=== PATIENT | female | born 1955 | race Caucasian/White ===

== ENCOUNTER 2016-06-18 10:56 | Emergency (ER) | payer MEDICARE, MEDICAID ==
[2016-06-18 12:10] VITALS: BP 154/100
--- NOTE | 2016-06-18 12:48 | UC ---
Complaint Female HPI - HPI Summary HPI Summary: patient has had dysuria and increased frequency in urination for the past few days. - History Of Current Complaint Chief Complaint: UCGU Stated Complaint: UTI Time Seen by Provider: 06/18/16 12:21 Hx Obtained From: Patient ?: No Onset/Duration: Sudden Onset, Lasting Days Timing: Intermittent Severity Initially: Mild Severity Currently: Mild Pain Intensity: 3 Pain Scale Used: 0-10 Numeric Character: Burning Aggravating Factor(s): Urination Alleviating Factor(s): Position - Risk Factors Ectopic Risk Factor: Negative Ovarian Torsion Risk Factor: Negative - Allergies/Home Medications Allergies/Adverse Reactions: Allergies Allergy/AdvReac Type Severity Reaction Status Date / Time Latex Allergy Severe ITCHING, Verified 01/27/15 10:28 RASH Salicylates Allergy Severe Anaphylatic Verified 01/27/15 10:28 Shock Home Medications: Home Medications Esomeprazole Magnesium [Nexium] 40 mg PO 06/18/16 [History] PMH/Surg Hx/FS Hx/Imm Hx Previously Healthy: Yes Endocrine History Of: Reports: Diabetes - type 2 Cardiovascular History Of: Reports: Hypertension Denies: Pacemaker/ICD Respiratory History Of: Reports: COPD, Asthma GI/ History Of: Denies: Renal Disease - Surgical History Surgical History: Yes Surgery Procedure, Year, and Place: APPENDECTOMY, TUBAL LIGATION, TUBAL (ECTOPIC), - Family History Known Family History: Positive: Cardiac Disease - Social History Alcohol Use: None Substance Use Type: None, Prescribed Smoking Status (MU): Former Smoker Type: Cigarettes Length of Time of Smoking/Using Tobacco: quit Jun 20, 2011, smoked ~30 years on and off Have You Smoked in the Last Year: No Review of Systems Constitutional: Negative Skin: Negative Eyes: Negative ENT: Negative Respiratory: Negative Cardiovascular: Negative Gastrointestinal: Negative Genitourinary: Dysuria, Frequency, Urgency Motor: Negative Neurovascular: Negative Musculoskeletal: Negative Neurological: Negative Psychological: Negative All Other Systems Reviewed And Are Negative: Yes Physical Exam Triage Information Reviewed: Yes Appearance: Well-Nourished, Ill-Appearing, Pain Distress Vital Signs: Initial Vital Signs Temp 97.4 F 06/18/16 12:04 Pulse 103 06/18/16 12:04 Resp 18 06/18/16 12:04 BP 154/100 06/18/16 12:04 Pulse Ox 98 06/18/16 12:04 Vital Signs Reviewed: Yes Eye Exam: Normal Eyes: Positive: Conjunctiva Clear ENT: Positive: Normal ENT inspection, Pharynx normal, TMs normal Dental Exam: Normal Neck exam: Normal Neck: Positive: Supple, Nontender, No Lymphadenopathy Respiratory Exam: Normal Respiratory: Positive: Chest non-tender, Lungs clear, Normal breath sounds Cardiovascular Exam: Normal Cardiovascular: Positive: RRR, No Murmur, Pulses Normal Abdominal Exam: Normal Abdomen Description: Positive: Nontender, No Organomegaly, Soft - no cva tenderness Bowel Sounds: Positive: Present Musculoskeletal Exam: Normal Musculoskeletal: Positive: Strength Intact, ROM Intact, No Edema Neurological Exam: Normal Neurological: Positive: Alert, Muscle Tone Normal Psychological Exam: Normal Skin Exam: Normal Complaint Female Dx - Course Course Of Treatment: hx obtained, exam performed, medications reviewed. keflex given for UTI. - Differential Dx/Diagnosis Differential Diagnosis/HQI/PQRI: Sexually Transmitted Disease, Ureteral Stone, Urinary Tract Infection Provider Diagnoses: UTI Discharge - Discharge Plan Condition: Stable Disposition: HOME Prescriptions: Cephalexin CAP* [Keflex CAP*] 500 mg PO BID #14 cap Additional Instructions: Take the medication as prescribed. Increase your fluid intake. follow up with your primary physician as needed.
== END 2016-06-18 12:50 | disposition home or self-care (01) ==
LOC: UCEAST 10:56
DX: N39.0 Urinary tract infection, site not specified (principal); Z88.8 Allergy status to other drugs, medicaments and biological substances; Z87.891 Personal history of nicotine dependence
CPT/HCPCS: 81002; 87086; 99212; G0463

== ENCOUNTER 2016-08-08 03:00 | Emergency (ER) | payer MEDICARE, MEDICAID ==
[2016-08-08] MEDS ORDERED: predniSONE TAB* 20 MG PO ONE (03:16)
[2016-08-08] MEDS ORDERED: Albuterol/Ipratropium NEB.SOL* Albuterol 2.5 MG/Ipratropium 0.5 MG 3 ML INH ONE (03:16)
--- NOTE | 2016-08-08 04:22 | ED ---
Charles Taylor Benjamin, scribed for Akil Rosado MD on 08/08/16 at 0320 . Throat Pain/Nasal Congestion - HPI Summary HPI Summary: 61yo female who woke up middle of the night around 0130 with nonproductive cough , RED and throat pain. Pt has hx of DM, COPD, HTN, and GERD. FHx of DM and HTN. Former smoker. - History of Current Complaint Chief Complaint: EDThroatPain Time Seen by Provider: 08/08/16 03:13 Hx Obtained From: Patient Onset/Duration: Sudden Onset, Lasting Hours, Still Present Severity: Moderate Cough: Nonproductive - Allergies/Home Medications Allergies/Adverse Reactions: Allergies Allergy/AdvReac Type Severity Reaction Status Date / Time Latex Allergy Severe ITCHING, Verified 01/27/15 10:28 RASH Salicylates Allergy Severe Anaphylatic Verified 01/27/15 10:28 Shock PMH/Surg Hx/FS Hx/Imm Hx Endocrine/Hematology History: Reports: Hx Diabetes - type 2 Cardiovascular History: Reports: Hx Hypertension Denies: Hx Pacemaker/ICD Respiratory History: Reports: Hx Asthma, Hx Chronic Obstructive Pulmonary Disease (COPD), Other Respiratory Problems/Disorders History: Denies: Hx Renal Disease Sensory History: Denies: Hx Hearing Aid Psychiatric History: Reports: Hx Panic Disorder - THINKS WILL BE OKAY - Surgical History Surgery Procedure, Year, and Place: APPENDECTOMY, TUBAL LIGATION, TUBAL (ECTOPIC), Infectious Disease History: No Infectious Disease History: Reports: Hx Shingles Denies: Hx Clostridium Difficile, Hx Hepatitis, Hx Human Immunodeficiency Virus (HIV), Hx of Known/Suspected MRSA, Hx Tuberculosis, Hx Known/Suspected VRE , Hx Known/Suspected VRSA, History Other Infectious Disease, Traveled Outside the [place] in Last 30 Days - Family History Known Family History: Positive: Cardiac Disease, Hypertension, Diabetes - Social History Alcohol Use: None Substance Use Type: Reports: None, Prescribed Hx Tobacco Use: Yes Smoking Status (MU): Former Smoker Type: Cigarettes Length of Time of Smoking/Using Tobacco: quit Jun 20, 2011, smoked ~30 years on and off Have You Smoked in the Last Year: No Review of Systems Constitutional: Negative Eyes: Negative Positive: Sore Throat Cardiovascular: Negative Positive: Cough Gastrointestinal: Negative Genitourinary: Negative Musculoskeletal: Negative Skin: Negative Positive: Headache Psychological: Normal All Other Systems Reviewed And Are Negative: Yes Physical Exam Triage Information Reviewed: Yes Vital Signs On Initial Exam: Initial Vitals Temp Pulse Resp BP Pulse Ox 96.9 F 111 18 145/90 94 08/08/16 03:00 08/08/16 03:00 08/08/16 03:00 08/08/16 03:00 08/08/16 03:00 Vital Signs Reviewed: Yes Appearance: Positive: No Pain Distress, Obese Skin: Positive: Warm Eyes: Positive: EOMI, CARLOS ENT: Positive: Hearing grossly normal Neck: Positive: Supple Respiratory/Lung Sounds: Positive: Wheezes - few scattered exp wheezes with prolonged expiration Cardiovascular: Positive: RRR Abdomen Description: Positive: Nontender, Soft Musculoskeletal: Negative: Edema Left, Edema Right Neurological: Positive: Sensory/Motor Intact, Alert, Oriented to Person Place, Time, Normal Gait Diagnostics - Vital Signs Vital Signs Temp Pulse Resp BP Pulse Ox 08/08/16 03:00 96.9 F 111 18 145/90 94 - Laboratory Lab Results: Lab Results 08/08/16 Range/Units 04:04 Group A Strep Rapid Negative (Negative) Lab Statement: Any lab studies that have been ordered have been reviewed, and results considered in the medical decision making process. Re-Evaluation - Re-Evaluation First Eval Change: Improved EENT Course/Dx - Diagnoses Provider Diagnoses: COPD exacerbation Discharge - Discharge Plan Condition: Stable Disposition: HOME Prescriptions: predniSONE TAB* [Deltasone TAB*] 40 mg PO DAILY #8 tab Patient Education Materials: COPD (Chronic Obstructive Pulmonary Disease) (ED) , Dyspnea (ED) Referrals: Adelso Acosta MD [Primary Care Provider] - The documentation as recorded by the Charles pierce Benjamin accurately reflects the service I personally performed and the decisions made by me, Akil Rosado MD.
[2016-08-08 04:45] VITALS: BP 105/46
== END 2016-08-08 04:45 | disposition home or self-care (01) ==
LOC: ED 03:00
DX: J44.1 Chronic obstructive pulmonary disease with (acute) exacerbation (principal); J02.9 Acute pharyngitis, unspecified; Z87.891 Personal history of nicotine dependence; R51 Headache
CPT/HCPCS: 87651; 94640; 99282; A9270-GY; J7512

== ENCOUNTER 2016-09-17 18:11 | Inpatient (IN) | payer MEDICARE, MEDICAID ==
[2016-09-17 19:02] LABS: Hematocrit 32 % (35-47); Mean Corpuscular HGB Conc 31 g/dl (31-36); Mean Corpuscular Hemoglobin 23 pg (27-31); Mean Corpuscular Volume 72 fL (80-97); Mean Platelet Volume 7 um3 (7.4-10.4); Red Blood Count 4.43 10^6/ul (4.0-5.4); Red Cell Distribution Width 19 % (10.5-15); White Blood Count 15.6 10^3/ul (3.5-10.8)
[2016-09-17 19:11] LABS: Add Diff/Slide Review? Slide Review Added; Comments Flag Yes
[2016-09-17 19:13] LABS: Albumin 3.6 g/dL (3.2-5.2); BUN/Creatinine Ratio 8.2 (8-20); C Reactive Protein 161.65 mg/L (< 5.00); Calcium 9.1 mg/dL (8.6-10.3); EGFR African American 74.7 (>60); EGFR Non-African American 58.1 (>60); Potassium 3.9 mmol/L (3.5-5.0); Total Bilirubin 0.5 mg/dL (0.2-1.0); Total Protein 7.6 g/dL (6.4-8.9)
[2016-09-17 19:17] LABS: Troponin I 0.07 ng/mL (<0.04)
--- NOTE | 2016-09-17 19:20 | RAD ---
INDICATION: Chest pain COMPARISON: Most recent chest x-ray June 23, 2014 TECHNIQUE: PA and lateral views of the chest were obtained. FINDINGS: The heart and mediastinum are normal in size and contour. There is coarse calcification overlying the arch of the aorta. The lungs are grossly clear. The lateral view the diaphragm are flattened and there is increased retrosternal airspace. There is no evidence of large pleural effusion. Visualized bones are normal for the patient's age. There is no radiographic evidence of free air beneath the diaphragm IMPRESSION: FINDINGS COMPATIBLE WITH CHRONIC OBSTRUCTIVE PULMONARY DISEASE WITHOUT ACUTE RADIOGRAPHICALLY APPARENT ABNORMALITY.
[2016-09-17] MEDS ORDERED: Levofloxacin 750 MG IVPREMIX(* 750 MG/150 ML BAG IVPB ONE (19:43)
[2016-09-17] MEDS ORDERED: Ondansetron INJ* 2 MG/ML VIAL IV ONE (20:04)
[2016-09-17] MEDS ORDERED: HYDROmorphone* 1 MG/ML 1 ML SYR IV ONE ×2 (20:04→21:58)
[2016-09-17] MEDS ORDERED: Iodixanol* (CONTRAST) 320 MG/ML 100 ML SDV IV ONE (20:11)
[2016-09-17] MEDS ORDERED: Dextrose 50% Syringe 50 ML* 25 GM/50 ML SYRINGE IV PUSH PRN (21:10)
--- NOTE | 2016-09-17 21:37 | RAD ---
INDICATION: Chest pain COMPARISON: None TECHNIQUE: Axial source images were acquired following the administration of AML Omnipaque [address] angiographic technique. Coronal and sagittal reconstructed images were constructed and reviewed. FINDINGS: Poor bolus timing prevents reliable evaluation of the pulmonary arteries. There is highly questionable filling defect in the left mainstem pulmonary artery (axial image 85 of 238 and coronal image 68 of 112). Poor bolus timing perhaps combined with respiratory motion artifact prevents meaningful evaluation beyond the right and left mainstem pulmonary arteries. In the anterior aspect of the left lower lobe there is a consolidation measuring up to 5.3 cm in greatest axial dimension (image 36) and 4.8 cm in the cephalocaudal projection (sagittal image 100). There is a small left pleural effusion. The heart is normal in size. There is no evidence of pericardial effusion. There is no evidence of aortic aneurysm or dissection. There is an enlarged left hilar lymph node measuring 1.3 cm in short access diameter. There are no pathologically mediastinal or axillary lymph nodes. Multilevel degenerative changes of the thoracic spine includes loss of intervertebral disc height and mild anterior marginal osteophyte formation. There is a moderate size hiatal hernia. IMPRESSION: 1. Poor bolus timing prevents meaningful evaluation of the pulmonary arteries. There is a highly questionable nonocclusive filling defect in the left mainstem pulmonary artery. 2. In the left lower lobe there is a parenchymal mass measuring 5.3 cm in greatest dimension with a mildly enlarged ipsilateral left hilar lymph node and small left pleural effusion. Etiologies could include infection neoplasm or less likely unusually large focus of atelectasis. 3. Large hiatal hernia.
[2016-09-17] MEDS ORDERED: Acetaminophen TAB* 325 MG PO ONE (21:57)
[2016-09-17] MEDS ORDERED: diPHENhydraMINE PO* 50 MG PO PRN (21:59)
[2016-09-17] MEDS ORDERED: Cyclobenzaprine TAB* 10 MG PO PRN (21:59)
[2016-09-17] MEDS ORDERED: Amitriptyline TAB* 10 MG PO PRN (21:59)
[2016-09-17] MEDS ORDERED: NS 0.9% 1000 ML* 1,000 ML IV ONE (22:04)
--- NOTE | 2016-09-17 22:46 | ED ---
Alondra Taylor Erika, scribed for Chai Lomax MD on 09/17/16 at 1926 . HPI Chest Pain - HPI Summary HPI Summary: Patient is a 61-year-old female presenting to the ED with a CC of chest pain starting at 07:30 this morning. Pain is located under the left breast, and radiates around to the back and intermittently shoots up the left shoulder, up the neck, and to the left ear. Pain is aggravated by deep breathing and coughing. Patient also reports that she has had an intermittent fever for a couple of weeks, and has had a slightly productive cough for 1 year secondary to COPD. Patient reports she is SOB at baseline. - History of Current Complaint Chief Complaint: EDChestPainROMI Time Seen by Provider: 09/17/16 18:35 Hx Obtained From: Patient Onset/Duration: Started Hours Ago, Atraumatic, Still Present Current Severity: Moderate Pain Intensity: 10 Pain Scale Used: 0-10 Numeric Chest Pain Location: Left Anterior Chest Pain Radiates: Yes Chest Pain Radiates To:: Back, Neck - Allergy/Home Medications Allergies/Adverse Reactions: Allergies Allergy/AdvReac Type Severity Reaction Status Date / Time Latex Allergy Severe ITCHING, Verified 01/27/15 10:28 RASH Salicylates Allergy Severe Anaphylatic Verified 01/27/15 10:28 Shock Home Medications: Home Medications Cyclobenzaprine TAB* [Flexeril 10 MG TAB*] 10 mg PO TID PRN 09/17/16 [History Confirmed 09/17/16] PMH/Surg Hx/FS Hx/Imm Hx Endocrine/Hematology History: Reports: Hx Diabetes - type 2 Cardiovascular History: Reports: Hx Hypertension Denies: Hx Pacemaker/ICD Respiratory History: Reports: Hx Asthma, Hx Chronic Obstructive Pulmonary Disease (COPD), Other Respiratory Problems/Disorders History: Denies: Hx Renal Disease Sensory History: Denies: Hx Hearing Aid Psychiatric History: Reports: Hx Panic Disorder - THINKS WILL BE OKAY - Surgical History Surgery Procedure, Year, and Place: APPENDECTOMY, TUBAL LIGATION, TUBAL (ECTOPIC), Infectious Disease History: Reports: Hx Shingles Denies: Hx Clostridium Difficile, Hx Hepatitis, Hx Human Immunodeficiency Virus (HIV), Hx of Known/Suspected MRSA, Hx Tuberculosis, Hx Known/Suspected VRE , Hx Known/Suspected VRSA, History Other Infectious Disease, Traveled Outside the [place] in Last 30 Days - Family History Known Family History: Positive: Cardiac Disease, Hypertension, Diabetes - Social History Alcohol Use: None Substance Use Type: Reports: None, Prescribed Hx Tobacco Use: Yes Smoking Status (MU): Former Smoker Type: Cigarettes Length of Time of Smoking/Using Tobacco: quit Jun 20, 2011, smoked ~30 years on and off Have You Smoked in the Last Year: No Review of Systems Positive: Fever Positive: Chest Pain - radiating to L shoulder, neck, ear Positive: Shortness Of Breath, Cough All Other Systems Reviewed And Are Negative: Yes Physical Exam Triage Information Reviewed: Yes Vital Signs On Initial Exam: Initial Vitals Temp Pulse Resp BP Pulse Ox 99 F 119 17 129/103 97 09/17/16 18:13 09/17/16 18:13 09/17/16 18:13 09/17/16 18:13 09/17/16 18:13 Vital Signs Reviewed: Yes Appearance: Positive: Well-Appearing, No Pain Distress, Obese Skin: Positive: Warm, Skin Color Reflects Adequate Perfusion, Dry Head/Face: Positive: Normal Head/Face Inspection Eyes: Positive: Normal ENT: Positive: Normal ENT inspection Neck: Positive: Supple, Nontender Respiratory/Lung Sounds: Positive: Decreased Breath Sounds - Very Cardiovascular: Positive: Tachycardia, Other - Heart sounds decreased Abdomen Description: Positive: Nontender, Soft Bowel Sounds: Positive: Present Musculoskeletal: Positive: Normal. Negative: Edema Left, Edema Right Neurological: Positive: Normal Psychiatric: Positive: Affect/Mood Appropriate Diagnostics - Vital Signs Vital Signs Temp Pulse Resp BP Pulse Ox 09/17/16 18:13 99 F 119 17 129/103 97 - Laboratory Lab Results: Lab Results 09/17/16 09/17/16 09/17/16 Range/Units 18:33 18:33 18:33 WBC 15.6 H (3.5-10.8) 10^3/ul RBC 4.43 (4.0-5.4) 10^6/ul Hgb 10.0 L (12.0-16.0) g/dl Hct 32 L (35-47) % MCV 72 L (80-97) fL MCH 23 L (27-31) pg MCHC 31 (31-36) g/dl RDW 19 H (10.5-15) % Plt Count 367 (150-450) 10^3/ul MPV 7 L (7.4-10.4) um3 Neut % (Auto) 83.6 H (38-83) % Lymph % (Auto) 9.2 L (25-47) % [place] % (Auto) 6.1 (1-9) % Eos % (Auto) 0.6 (0-6) % Baso % (Auto) 0.5 (0-2) % Absolute Neuts (auto) 13.0 H (1.5-7.7) 10^3/ul Absolute Lymphs (auto) 1.4 (1.0-4.8) 10^3/ul Absolute Monos (auto) 0.9 H (0-0.8) 10^3/ul Absolute Eos (auto) 0.1 (0-0.6) 10^3/ul Absolute Basos (auto) 0.1 (0-0.2) 10^3/ul Absolute Nucleated RBC 0.01 10^3/ul Nucleated RBC % 0 Sodium 132 L (133-145) mmol/L Potassium 3.9 (3.5-5.0) mmol/L Chloride 98 L (101-111) mmol/L Carbon Dioxide 26 (22-32) mmol/L Anion Gap 8 (2-11) mmol/L BUN 8 (6-24) mg/dL Creatinine 0.98 H (0.51-0.95) mg/dL Est GFR ( Amer) 74.7 (>60) Est GFR (Non-Af Amer) 58.1 (>60) BUN/Creatinine Ratio 8.2 (8-20) Glucose 153 H (70-100) mg/dL Lactic Acid 2.0 (0.5-2.0) mmol/L Calcium 9.1 (8.6-10.3) mg/dL Iron 10 L (50-212) ug/dL TIBC 328 (250-450) mcg/dL % Saturation 3 L (15-55) % Unsat Iron Binding 318 ug/dL Ferritin Pending Total Bilirubin 0.50 (0.2-1.0) mg/dL AST 11 L (13-39) U/L ALT 10 (7-52) U/L Alkaline Phosphatase 113 H (34-104) U/L Troponin I 0.07 H* (<0.04) ng/mL C-Reactive Protein 161.65 H (< 5.00) mg/L B-Natriuretic Peptide ( - 100) pg/mL Total Protein 7.6 (6.4-8.9) g/dL Albumin 3.6 (3.2-5.2) g/dL Globulin 4.0 (2-4) g/dL Albumin/Globulin Ratio 0.9 L (1-3) Vitamin B12 Pending Folate Pending 09/17/16 Range/Units 18:33 WBC (3.5-10.8) 10^3/ul RBC (4.0-5.4) 10^6/ul Hgb (12.0-16.0) g/dl Hct (35-47) % MCV (80-97) fL MCH (27-31) pg MCHC (31-36) g/dl RDW (10.5-15) % Plt Count (150-450) 10^3/ul MPV (7.4-10.4) um3 Neut % (Auto) (38-83) % Lymph % (Auto) (25-47) % [place] % (Auto) (1-9) % Eos % (Auto) (0-6) % Baso % (Auto) (0-2) % Absolute Neuts (auto) (1.5-7.7) 10^3/ul Absolute Lymphs (auto) (1.0-4.8) 10^3/ul Absolute Monos (auto) (0-0.8) 10^3/ul Absolute Eos (auto) (0-0.6) 10^3/ul Absolute Basos (auto) (0-0.2) 10^3/ul Absolute Nucleated RBC 10^3/ul Nucleated RBC % Sodium (133-145) mmol/L Potassium (3.5-5.0) mmol/L Chloride (101-111) mmol/L Carbon Dioxide (22-32) mmol/L Anion Gap (2-11) mmol/L BUN (6-24) mg/dL Creatinine (0.51-0.95) mg/dL Est GFR ( Amer) (>60) Est GFR (Non-Af Amer) (>60) BUN/Creatinine Ratio (8-20) Glucose (70-100) mg/dL Lactic Acid (0.5-2.0) mmol/L Calcium (8.6-10.3) mg/dL Iron (50-212) ug/dL TIBC (250-450) mcg/dL % Saturation (15-55) % Unsat Iron Binding ug/dL Ferritin Total Bilirubin (0.2-1.0) mg/dL AST (13-39) U/L ALT (7-52) U/L Alkaline Phosphatase (34-104) U/L Troponin I (<0.04) ng/mL C-Reactive Protein (< 5.00) mg/L B-Natriuretic Peptide 73 ( - 100) pg/mL Total Protein (6.4-8.9) g/dL Albumin (3.2-5.2) g/dL Globulin (2-4) g/dL Albumin/Globulin Ratio (1-3) Vitamin B12 Folate Result Diagrams: 09/17/16 18:33 09/17/16 18:33 Lab Statement: Any lab studies that have been ordered have been reviewed, and results considered in the medical decision making process. - Radiology CXR Radiology Interpretation Completed By: Radiologist - IMPRESSION: FINDINGS COMPATIBLE WITH CHRONIC OBSTRUCTIVE PULMONARY DISEASE WITHOUT ACUTE RADIOGRAPHICALLY APPARENT ABNORMALITY. - CT CTA Chest CT Interpretation Completed By: Radiologist - IMPRESSION: 1. Poor bolus timing prevents meaningful evaluation of the pulmonary arteries. There is a highly questionable nonocclusive filling defect in the left mainstem pulmonary artery. 2. In the left lower lobe there is a parenchymal mass measuring 5.3 cm in greatest dimension with a mildly enlarged ipsilateral left hilar lymph node and small left pleural effusion. Etiologies could include infection neoplasm or less likely unusually large focus of atelectasis. 3. Large hiatal hernia. - EKG 18:20 Cardiac Rate: Tachycardia - at 115 bpm EKG Rhythm: Sinus Tachycardia Chest Pain Course/Dx - Diagnoses Provider Diagnoses: Pneumonia - Provider Notifications Discussed Care Of Patient With: Dr. Raza (hospitalist) at 20:03 - agrees to admit. will order CTA chest Discharge - Discharge Plan Condition: Stable Disposition: ADMITTED TO [facility] documentation as recorded by the Alondra pierce Erika accurately reflects the service I personally performed and the decisions made by mt, Chai Lomax MD.
[2016-09-17 22:48] LABS: Ferritin 60.2 ng/mL (11-307)
[2016-09-17 22:52] LABS: Folate 11.99 ng/mL (>3.99)
--- NOTE | 2016-09-18 01:07 | HP ---
HOSPITAL MEDICINE HISTORY AND PHYSICAL: DATE OF ADMISSION: 09/17/16 PRIMARY CARE PHYSICIAN: Dr. Acosta. ATTENDING PHYSICIAN: Dr. Zurdo Raza * (dictation provided by Ainsley Wang NP) CHIEF COMPLAINT: Chest pain. HISTORY OF PRESENT ILLNESS: Ms. Fuller is a 61-year-old female with a past medical history of COPD and type 2 diabetes who presents to the hospital today with concern for left-sided chest pain. Ms. Fuller states that she has been having on again and off again fevers for 2 weeks. Her temperature has been up to as high as 102. She stated that she had no other associated symptoms and so did not seek out further evaluation of the fever. She has ongoing issues with COPD and has wheezing and shortness of breath that is chronic. She also has chronic pain related to fibromyalgia. She states that today at 07:30 a.m., she had a sudden onset of pain to the left side of her chest that radiated around to her back. There is no other associated symptoms of worsening cough or nausea or sweating. In the emergency room, Ms. Fuller has been confirmed have a fever to 102. She is tachycardic with a heart rate of about 110. Her lactic acid is normal. White blood cell count was elevated to 15.6. Troponin is elevated to 0.07. C- reactive protein elevated to 161.65. Chest x-ray was negative, but she went on for a chest thorax CTA which did show concern for what is being described as a left-sided parenchymal mass, it is 5.3 cm in greatest dimension, with possibility of infection versus neoplasm and there is also a small associated pleural effusion. PAST MEDICAL HISTORY: 1. COPD. 2. Six-jwtguif-ippmexmga diabetes mellitus. 3. Depression. 4. GERD. 5. Fibromyalgia. PAST SURGICAL HISTORY: 1. Ectopic . 2. Appendectomy. 3. History of tubal ligation. MEDICATIONS: 1. Albuterol and ipratropium 1 puff inhaled q.4 hours p.r.n. 2. Esomeprazole 40 mg p.o. daily. 3. Furosemide 20 mg p.o. daily. 4. Metformin 1000 mg p.o. b.i.d. 5. Pravastatin 20 mg p.o. daily. 6. Ranitidine 150 mg p.o. daily. 7. Amitriptyline 10 mg p.o. daily p.r.n. 8. Cyclobenzaprine 10 mg p.o. t.i.d. p.r.n. 9. Advair 250/50, 1 puff inhaled b.i.d. 10. Gabapentin 600 mg p.o. at noon and at 8 p.m. 11. Lisinopril 10 mg p.o. daily. 12. Acetaminophen 5/325, 1 tab p.o. q.4 hours. 13. Sertraline 100 mg p.o. daily. 14. Diphenhydramine 50 mg p.o. q.8 hours p.r.n. ALLERGIES: To LATEX and SALSALATE. FAMILY HISTORY: The patient reports that her mother is still alive, but she has diabetes and COPD. Her father related to heart troubles. SOCIAL HISTORY: The patient quit smoking 4 years ago. She denies alcohol or drug use. She lives alone. She states either her son Gamal or daughter Rayne would the healthcare proxy. REVIEW OF SYSTEMS: A 14-point review of systems was completed with Ms. Fuller and all those not mentioned above were negative. PHYSICAL EXAMINATION GENERAL: Ms. Fuller is sitting up in the bed, she is in no acute distress. VITAL SIGNS: Temperature 102.5, heart rate 115, respiratory rate 18, O2 saturation 92% on room air, blood pressure 165/80. LUNGS: Have diffuse wheezing bilaterally. There is no accessory muscle use, there is good aeration. She does have pain with deep inspiration on the left side. HEART: S1 and S2. No murmur, rub, or gallop. Regular. ABDOMEN: Soft and nontender with bowel sounds positive x4. EXTREMITIES: No cyanosis or edema. NEURO: She is alert and oriented x3. She moves all extremities equally. There is no facial asymmetry or focal weakness. Extraocular movements are intact. SKIN: Intact. DIAGNOSTIC STUDIES/LAB DATA: Sodium 132, potassium 3.9, chloride 98, serum bicarbonate 26, BUN 8, creatinine 0.98, glucose 153, AST 11, ALT of 10, alkaline phosphatase 113, troponin 0.07. C-reactive protein 161.65. WBC 15.6, hemoglobin 10.0, hematocrit 32, platelet count 367. Chest x-ray was read as follows: "Findings compatible with chronic obstructive pulmonary disease without acute radiographic abnormality." Chest thorax CTA is read as follows: "Poor bolus timing prevents meaningful evaluation of the pulmonary arteries. There is a highly questionable nonocclusive filling defect in the left main stem pulmonary artery. In the left lower lobe, there is a parenchymal mass measuring 5.3 cm in greatest dimension with a mildly enlarged ipsilateral left hilar lymph node and small left pleural effusion. Etiologies could include infection, neoplasm or less likely unusually large focus of atelectasis, large hiatal hernia." ASSESSMENT: Ms. Fuller is a 61-year-old female with a past medical history of diabetes and chronic obstructive pulmonary disease who presents today at the hospital with concern for fever x2 weeks and new left-sided chest pain that is worse with deep inspiration. PLAN: Our plans are for admission to the hospital as I expect the length of stay to be greater than 2 days for the following; 1. Parenchymal mass with chest pain on deep inspiration. I think the parenchymal mass explains her chest pain with deep inspiration. I suspect that this is likely infectious given the patient's history of fever x2 weeks. Our plan to treat for now with Levaquin, but could consider a consultation with Infectious Diseases or Pulmonology tomorrow when they are available. The patient is not hypoxic. Her lactic acid is normal. Blood cultures have been drawn. Unfortunately the CTA chest was not an adequate study to rule out PE but the report only shows a highly questionable finding and there is an alternate explanation that explains her symptoms. Could consider repeat CTA tomorrow but I believe a VQ scan would not be beneficial given the underlying lung abnormality. I do also note however, that her troponin is elevated at 0.07 , we will repeat that x2 and she will have telemetry monitoring. I suspect that this is secondary to demand ischemia with her elevated heart rate and infection. I will order echocardiogram for further evaluation tomorrow. 3. Diabetes: The patient will have blood glucoses q.a.c. with lispro sliding scale and consistent carbohydrate diet. 4. Depression. Continue sertraline. 5. Chronic pain. Continue gabapentin and oxycodone. 6. DVT prophylaxis: With heparin subcu. 7. Code status: Full code. TIME SPENT: Approximately 60 minutes was spent on admission of this patient, more than half time spent with the patient at the bedside reviewing the events leading up to this hospitalization, performing the physical examination, and reviewing my plan of care. AINSLEY WANG NP CC: Dr. Acosta* [id number]/[facility] #: [id number] [facility]
[2016-09-18] MEDS: NS 0.9% 1000 ML* 1,000 ML IV SCH ×3 (02:31→23:55)
[2016-09-18] MEDS: oxyCODONE/Acetamin 5/325 MG* TAB PO PRN ×2 (03:02→07:26)
[2016-09-18] MEDS ORDERED: Morphine INJ* 2 MG/ML 1 ML SYRINGE IV ONE (05:25)
[2016-09-18 05:53] LABS: Hematocrit 28 % (35-47); Hemoglobin 8.9 g/dl (12.0-16.0); Mean Corpuscular HGB Conc 32 g/dl (31-36); Mean Corpuscular Hemoglobin 23 pg (27-31); Mean Platelet Volume 7 um3 (7.4-10.4); Red Blood Count 3.89 10^6/ul (4.0-5.4); Red Cell Distribution Width 19 % (10.5-15); White Blood Count 19.7 10^3/ul (3.5-10.8)
[2016-09-18 05:55] LABS: Comments Flag Yes
[2016-09-18 05:56] LABS: Add Diff/Slide Review? Slide Review Added; Mean Corpuscular Volume 72 fL (80-97)
[2016-09-18] MEDS ORDERED: Heparin VIAL(*) 5000 UNITS/ML VIAL (FIVE THOUSAND) SUBCUT SCH (06:00)
[2016-09-18 06:09] LABS: BUN/Creatinine Ratio 10.8 (8-20); Calcium 8.4 mg/dL (8.6-10.3); EGFR African American 64.7 (>60); EGFR Non-African American 50.3 (>60); Potassium 3.9 mmol/L (3.5-5.0)
[2016-09-18 06:14] LABS: Troponin I 0.08 ng/mL (<0.04)
[2016-09-18] MEDS ORDERED: Morphine INJ* 2 MG/ML 1 ML SYRINGE IV PRN (08:30)
[2016-09-18] MEDS: Mometasone/Formoter 200/5 MDI INH SCH ×2 (08:43→20:57)
[2016-09-18] MEDS: fentaNYL PATCH 25 MCG/HR TRANSDERM SCH (09:12)
[2016-09-18] MEDS: Insulin LISPRO* 1 UNITS UNIT SUBCUT SCH ×3 (09:16→18:09)
[2016-09-18] MEDS: Lisinopril TAB* 10 MG PO SCH (09:18)
[2016-09-18] MEDS: Sertraline* 100 MG TAB PO SCH (09:18)
[2016-09-18] MEDS ORDERED: Perflutren Lipid Microsphere* 1.1 MG/1.5 ML VIAL IV ONE (09:25)
[2016-09-18] MEDS ORDERED: Perflutren Prot Type A Micr (NF) 3 ML SDV IV ONE ×2 (09:48→11:39)
[2016-09-18] MEDS ORDERED: HYDROmorphone* 1 MG/ML 1 ML SYR IV SLOW PU ONE (10:59)
[2016-09-18] MEDS ORDERED: Enoxaparin(*) 150 MG/ML 1 ML SYRINGE SUBCUT ONE (11:01)
[2016-09-18] MEDS: Gabapentin CAP(*) 300 MG PO SCH ×2 (12:19→20:56)
--- NOTE | 2016-09-18 13:36 | PN ---
Subjective Date of Service: 09/18/16 Interval History: Pt is having severe pain in the left lower chest. She states it hurts much worse when she moves, is lying flat or takes a deep breath. She has a slight cough but no more than usual. No significant sputum production. Objective Active Medications: Amitriptyline HCl (Elavil Tab*) 10 mg PO BEDTIME PRN PRN Reason: PAIN Cyclobenzaprine HCl (Flexeril Tab*) 10 mg PO TID PRN PRN Reason: SPASMS Dextrose (D50w Syringe 50 Ml*) 12.5 gm IV PUSH .FOR FS < 60 - SS PRN PRN Reason: FS < 60 Diphenhydramine HCl (Benadryl Po*) 50 mg PO Q8H PRN PRN Reason: ITCHING Fentanyl (Duragesic Patch 25 Mcg/Hr*) 25 mcg TRANSDERM Q72H [facility] Last Admin: 09/18/16 09:12 Dose: 25 mcg Gabapentin (Neurontin Cap(*)) 600 mg PO 1200,2000 [facility] Last Admin: 09/18/16 12:19 Dose: 600 mg Hydromorphone HCl (Dilaudid Iv*) 1 mg IV SLOW PU Q3H PRN PRN Reason: PAIN Levofloxacin/Dextrose (Levaquin 750 Mg Ivpremix(*)) 750 mg in 150 mls @ 100 mls /hr IVPB Q24H [facility] Sodium Chloride (Ns 0.9% 1000 Ml*) 1,000 mls @ 125 mls/hr IV PER RATE [facility] Last Admin: 09/18/16 12:51 Dose: 125 mls/hr Insulin Human Lispro (Humalog*) 0 units SUBCUT AC [facility] PRN Reason: Protocol Last Admin: 09/18/16 12:18 Dose: 3 unit Lisinopril (Prinivil Tab*) 10 mg PO DAILY [facility] Last Admin: 09/18/16 09:18 Dose: 10 mg Mometasone Furoate/Formoterol Fumar (Dulera 200/5 Mdi*) 2 puff INH BID [facility] Last Admin: 09/18/16 08:43 Dose: 2 puff Pharmacy Profile Note (Fentanyl Patch Check Q Shift) 1 note N/A 0700,1900 [facility] Sertraline HCl (Zoloft*) 100 mg PO DAILY [facility] Last Admin: 09/18/16 09:18 Dose: 100 mg Vital Signs 04/11/17 04/12/17 04/12/17 23:06 02:00 03:02 Temperature 99.5 F Pulse Rate 100 Respiratory 22 24 22 Rate Blood Pressure 115/60 (mmHg) O2 Sat by Pulse 100 Oximetry 09/18/16 09/18/16 09/18/16 03:14 05:02 05:36 Temperature 99.4 F Pulse Rate 102 Respiratory 24 24 24 Rate Blood Pressure 122/71 (mmHg) O2 Sat by Pulse 99 Oximetry 09/18/16 09/18/16 09/18/16 06:36 07:24 07:26 Temperature 99.7 F Pulse Rate 106 Respiratory 20 26 20 Rate Blood Pressure 114/68 (mmHg) O2 Sat by Pulse 95 Oximetry 09/18/16 09/18/16 09/18/16 08:00 08:49 09:08 Temperature Pulse Rate Respiratory 28 24 Rate Blood Pressure (mmHg) O2 Sat by Pulse 94 Oximetry 09/18/16 09/18/16 09/18/16 09:12 11:07 11:19 Temperature 100.3 F Pulse Rate 107 Respiratory 24 28 30 Rate Blood Pressure 120/60 (mmHg) O2 Sat by Pulse 92 Oximetry 09/18/16 12:19 Temperature Pulse Rate Respiratory 28 Rate Blood Pressure (mmHg) O2 Sat by Pulse Oximetry Oxygen Devices in Use Now: None Appearance: Middle aged female sitting in a chair, appearing to be in pain, but in NAD Eyes: No Scleral Icterus Ears/Nose/Mouth/Throat: Mucous Membranes Moist Respiratory: Symmetrical Chest Expansion and Respiratory Effort, Clear to Auscultation, - - No E to A changes Cardiovascular: NL Sounds; No Murmurs; No JVD, RRR, - - 1+ B/L LE edema Abdominal: NL Sounds; No Tenderness; No Distention Extremities: No Clubbing, Cyanosis Skin: No Rash or Ulcers, No Nodules or Sclerosis Neurological: Alert and Oriented x 3 Result Diagrams: 09/18/16 05:16 09/18/16 05:16 Additional Lab and Data: Lab Results 09/17/16 09/17/16 09/17/16 Range/Units 18:33 18:33 18:33 WBC 15.6 H (3.5-10.8) 10^3/ul RBC 4.43 (4.0-5.4) 10^6/ul Hgb 10.0 L (12.0-16.0) g/dl Hct 32 L (35-47) % MCV 72 L (80-97) fL MCH 23 L (27-31) pg MCHC 31 (31-36) g/dl RDW 19 H (10.5-15) % Plt Count 367 (150-450) 10^3/ul MPV 7 L (7.4-10.4) um3 Neut % (Auto) 83.6 H (38-83) % Lymph % (Auto) 9.2 L (25-47) % Arthur % (Auto) 6.1 (1-9) % Eos % (Auto) 0.6 (0-6) % Baso % (Auto) 0.5 (0-2) % Absolute Neuts (auto) 13.0 H (1.5-7.7) 10^3/ul Absolute Lymphs (auto) 1.4 (1.0-4.8) 10^3/ul Absolute Monos (auto) 0.9 H (0-0.8) 10^3/ul Absolute Eos (auto) 0.1 (0-0.6) 10^3/ul Absolute Basos (auto) 0.1 (0-0.2) 10^3/ul Absolute Nucleated RBC 0.01 10^3/ul Nucleated RBC % 0 Sodium 132 L (133-145) mmol/L Potassium 3.9 (3.5-5.0) mmol/L Chloride 98 L (101-111) mmol/L Carbon Dioxide 26 (22-32) mmol/L Anion Gap 8 (2-11) mmol/L BUN 8 (6-24) mg/dL Creatinine 0.98 H (0.51-0.95) mg/dL Est GFR ( Amer) 74.7 (>60) Est GFR (Non-Af Amer) 58.1 (>60) BUN/Creatinine Ratio 8.2 (8-20) Glucose 153 H (70-100) mg/dL Lactic Acid 2.0 (0.5-2.0) mmol/L Calcium 9.1 (8.6-10.3) mg/dL Iron 10 L (50-212) ug/dL TIBC 328 (250-450) mcg/dL % Saturation 3 L (15-55) % Unsat Iron Binding 318 ug/dL Ferritin Pending Total Bilirubin 0.50 (0.2-1.0) mg/dL AST 11 L (13-39) U/L ALT 10 (7-52) U/L Alkaline Phosphatase 113 H (34-104) U/L Troponin I 0.07 H* (<0.04) ng/mL C-Reactive Protein 161.65 H (< 5.00) mg/L B-Natriuretic Peptide ( - 100) pg/mL Total Protein 7.6 (6.4-8.9) g/dL Albumin 3.6 (3.2-5.2) g/dL Globulin 4.0 (2-4) g/dL Albumin/Globulin Ratio 0.9 L (1-3) Vitamin B12 Pending Folate Pending 09/17/16 Range/Units 18:33 WBC (3.5-10.8) 10^3/ul RBC (4.0-5.4) 10^6/ul Hgb (12.0-16.0) g/dl Hct (35-47) % MCV (80-97) fL MCH (27-31) pg MCHC (31-36) g/dl RDW (10.5-15) % Plt Count (150-450) 10^3/ul MPV (7.4-10.4) um3 Neut % (Auto) (38-83) % Lymph % (Auto) (25-47) % Arthur % (Auto) (1-9) % Eos % (Auto) (0-6) % Baso % (Auto) (0-2) % Absolute Neuts (auto) (1.5-7.7) 10^3/ul Absolute Lymphs (auto) (1.0-4.8) 10^3/ul Absolute Monos (auto) (0-0.8) 10^3/ul Absolute Eos (auto) (0-0.6) 10^3/ul Absolute Basos (auto) (0-0.2) 10^3/ul Absolute Nucleated RBC 10^3/ul Nucleated RBC % Sodium (133-145) mmol/L Potassium (3.5-5.0) mmol/L Chloride (101-111) mmol/L Carbon Dioxide (22-32) mmol/L Anion Gap (2-11) mmol/L BUN (6-24) mg/dL Creatinine (0.51-0.95) mg/dL Est GFR ( Amer) (>60) Est GFR (Non-Af Amer) (>60) BUN/Creatinine Ratio (8-20) Glucose (70-100) mg/dL Lactic Acid (0.5-2.0) mmol/L Calcium (8.6-10.3) mg/dL Iron (50-212) ug/dL TIBC (250-450) mcg/dL % Saturation (15-55) % Unsat Iron Binding ug/dL Ferritin Total Bilirubin (0.2-1.0) mg/dL AST (13-39) U/L ALT (7-52) U/L Alkaline Phosphatase (34-104) U/L Troponin I (<0.04) ng/mL C-Reactive Protein (< 5.00) mg/L B-Natriuretic Peptide 73 ( - 100) pg/mL Total Protein (6.4-8.9) g/dL Albumin (3.2-5.2) g/dL Globulin (2-4) g/dL Albumin/Globulin Ratio (1-3) Vitamin B12 Folate Assess/Plan/Problems-Billing Ms Fuller is a 61 yo F who has a h/o COPD, fibromyalgia, type II DM and depression who presented to the ER with c/o 2 weeks of intermittent fevers and the sudden onset of severe L sided chest pain worse with deep breath and movement. - Patient Problems (1) Chest pain Current Visit: Yes Status: Acute Code(s): R07.9 - CHEST PAIN, UNSPECIFIED SNOMED Code(s): 90395160 Comment: I suspect the patient's chest pain is related to the large L lower lobe lung mass/consolidation. It is not clear if this is infectious vs neoplastic. Additionally the pain could be secondary to a PE. Her initial study was of poor quality and because of her ongoing symptoms will repeat the CTA now. I have given 130mg of lovenox SQ x1 due to the concern for PE. Will continue to treat for possible dense pneumonia of the LLL. If no improvement or change in the size/appearance of the mass in the LLL will consider biopsy. Additionally will ask for pulmonary consultation. The patient is febrile and has a marked leukocytosis which makes me lean towards infection however she is not coughing up any sputum. (2) Elevated troponin Current Visit: Yes Status: Acute Code(s): R74.8 - ABNORMAL LEVELS OF OTHER SERUM ENZYMES SNOMED Code(s): 969081096 Comment: Likely demand ischemia. Subsequent troponins were normal but then again elevated but now normal again. No further work up at this time as I do not believe her chest pain is cardiac in nature. (3) Anemia Current Visit: Yes Status: Acute Code(s): D64.9 - ANEMIA, UNSPECIFIED SNOMED Code(s): 038014285 Comment: The patient was anemic on admission but worsened today with hydration. Likely the anemia is secondary to probable infection however her MCV is low making iron deficiency a possibilty. Will send iron and B12 studies. Will follow H/H. (4) COPD (chronic obstructive pulmonary disease) Current Visit: Yes Status: Acute Code(s): J44.9 - CHRONIC OBSTRUCTIVE PULMONARY DISEASE, UNSPECIFIED SNOMED Code(s): 56121220 Comment: No signs of exacerbation at this time. Continue dulera. (5) Type II diabetes mellitus Current Visit: Yes Status: Acute Comment: Blood sugars are under fair control. Continue lispro sliding scale. (6) DVT prophylaxis Current Visit: Yes Status: Acute Code(s): JBZ4201 - SNOMED Code(s): 967752144 Comment: full dose lovenox (7) Full code status Current Visit: Yes Status: Acute Code(s): Z78.9 - OTHER SPECIFIED HEALTH STATUS SNOMED Code(s): 051243596
[2016-09-18] MEDS: HYDROmorphone* 1 MG/ML 1 ML SYR IV SLOW PU PRN ×3 (14:06→23:13)
--- NOTE | 2016-09-18 14:17 | ECHO ---
Amended Report Patient: RAHEEL CALDWELL [facility] Rec#: [id number] : 1955 Date: 09/18/2016 Age: 61y Height: 167.64 cm / 66.0 in Weight: 129.27 kg / 284.9 lbs Sex: F BSA: 2.33 Room#: 431 Admit Date#: 09/17/2016 Type: Inpatient Referring: Ainsley Wang NP Reading: Mellisa Aparicio MD Information Systems [employer] Specialist: Jenn Swain RDCS,RDMS CC: Adelso Acosta MD Transthoracic Echocardiogram Indication: Chest Pain BP: 122/71 HR: 107 Rhythm: NSR Indications Chest Pain Findings History: COPD, DM, fibromyalgia, left parynchymal mass. Technical Comments: The study quality is poor. The study is technically limited due to poor acoustic windows. The study is technically limited due to the patient's history of COPD. Left Ventricle: The left ventricle is not well visualized. The left ventricular chamber size is normal. Global left ventricular wall motion and contractility are within normal limits. The left ventricle appears hyperdynamic. The estimated ejection fraction is 60-65%. The assessment of diastolic function is non-diagnostic. The patient was unable to perform a Valsalva maneuver. Left Atrium: The left atrial chamber size is normal. Right Ventricle: The right ventricle wall thickness is mildly increased. The right ventricular cavity size is normal. The right ventricular global systolic function is moderately reduced. Right Atrium: The right atrial cavity size is normal. Aortic Valve: The aortic valve structure is not well visualized. The aortic valve leaflets are mildly thickened. There is no evidence of aortic regurgitation. There is no evidence of aortic stenosis. Mitral Valve: The mitral valve leaflets do not appear thickened. There is no evidence of mitral regurgitation. There is no evidence of mitral stenosis. Tricuspid Valve: The tricuspid valve structure is not well visualized. There is no evidence of tricuspid valve regurgitation. Unable to estimate the right ventricular systolic pressure. Pulmonic Valve: The pulmonic valve structure is not well visualized. Pericardium: There is no significant pericardial effusion. Aorta: The ascending aorta is not well visualized. The aortic arch is not well visualized. The aortic root is normal in size. Pulmonary Artery: The main pulmonary artery is not well visualized. Venous: The inferior vena cava is not visualized. Contrast: Optison was used to optimize study. A total of 1.0 ml was used. Conclusions The study is technically limited due to poor acoustic windows, echo enhancement agent used with good definition endocarial borders. Global left ventricular wall motion and contractility are within normal limits. The left ventricle appears hyperdynamic. The estimated ejection fraction is 60-65%. The right ventricular global systolic function is moderately reduced and wall thickness mildly increased. The aortic valve leaflets are mildly thickened with good function. The tricuspid valve structure is not well visualized, normal function. The pulmonic valve structure is not well visualized. The ascending aorta is not well visualized. No prior echo to compare. Measurements Name Value Normal Range RAd ISD 4CH 3.5 cm (3.4 - 4.9) RA (A4C)W 4.1 cm (2.9 - 4.6) Aortic Annulus 2.2 cm (1.4 - 2.6) Ao root diameter (2D) 2.8 cm (2.1 - 3.5) LAd ISD 4CH 5.1 cm (2.9 - 5.3) LA ISD 4CH W 3.7 cm (2.5 - 4.5) Name Value Normal Range LA ESV SP 4CH (A/L) 64.32 ml - LA ESV SP 4CH (MOD) 59.66 ml - Name Value Normal Range MV E-wave Vmax 0.8 m/sec - MV deceleration time 109 msec - MV A-wave Vmax 0.9 m/sec - MV E:A ratio 0.9 ratio - LV lateral e' Vmax 0.06 m/sec - LV E:e' lateral ratio 13 ratio - Name Value Normal Range AV Vmax 1.6 m/sec - AV VTI 26 cm - AV peak gradient 10 mmHg - AV mean gradient 7.5 mmHg - LVOT Vmax 1.2 m/sec - LVOT VTI 19 cm - LVOT peak gradient 6 mmHg - LVOT mean gradient 3.3 mmHg - Name Value Normal Range RAP 8 mmHg -
[2016-09-18] MEDS ORDERED: Iodixanol* (CONTRAST) 320 MG/ML 100 ML SDV IV ONE (17:20)
--- NOTE | 2016-09-18 18:05 | RAD ---
Indication: Evaluate for pulmonary emboli. Contrast: Administered 96.2 ml of VISIPAQUE 320 mg/ml CTA of the chest was performed after IV contrast administration. Coronal and sagittal reconstructed images were obtained. There is contrast in the aorta and superior vena cava with poorly opacified pulmonary arteries. This is consistent with transient interruption of contrast bolus. The main pulmonary arteries demonstrates no evidence of pulmonary embolus however it is difficult to evaluate for small pulmonary emboli. Trachea and major bronchi appear patent. The lung rosado demonstrate consolidation in the left lower lobe with air bronchograms. A mass is not excluded. This is unchanged from previous examination. Again noted is a left hilar lymph node measuring up to 1.3 cm in the short axis.. Large hiatal hernia is noted. The visualized abdominal organs are otherwise unremarkable. IMPRESSION: THERE IS TRANSIENT INTERRUPTION OF CONTRAST WITH WELL OPACIFIED SUPERIOR VENA CAVA AND AORTA. THE PULMONARY ARTERIES ARE POORLY OPACIFIED AND THEREFORE LIMITED IN EVALUATION. LEFT LOWER LOBE MASS. CORRELATION WITH BRONCHOSCOPY MAY BE HELPFUL. LEFT LOWER LOBE ATELECTASIS WITH SMALL LEFT PLEURAL EFFUSION IS NOTED. VISUALIZED ABDOMINAL ORGANS ARE UNREMARKABLE.
[2016-09-18] MEDS: fentaNYL Patch Check Q Shift 1 NOTE SCH (19:08)
[2016-09-18] MEDS ORDERED: Levofloxacin 750 MG IVPREMIX(* 750 MG/150 ML BAG IVPB SCH (21:00)
--- NOTE | 2016-09-18 21:57 | CONS ---
PULMONARY CONSULTATION REPORT: DATE OF CONSULT: 09/18/16 CONSULTATION REQUESTED BY: Dr. Bailey. REASON FOR CONSULT: Evaluation of abnormal CT chest. HISTORY OF PRESENT ILLNESS: The patient is a 61-year-old female with history of COPD, type 2 diabetes, who presented to the emergency room for evaluation of left- sided chest pain. The patient has been having fevers on and off for the past 2 weeks. The patient reports T-max of 102 at home. The patient denied worsening shortness of breath or coughing. The patient has chronic shortness of breath and wheezing from COPD. She also has chronic pain related to fibromyalgia. The patient's chest pain is reported to be significant. She was also tachycardic upon admission; however, her lactic acid was within normal limits. White cell count was elevated at 15.6. Troponins were mildly elevated at 0.07. Her CRP was elevated. The patient had chest x-ray in the emergency room which was personally reviewed by me. No evidence of acute airspace opacities. Left base could not be adequately evaluated. The patient subsequently underwent CT of the chest to rule out pulmonary embolism. There was inadequate contrast timing resulting in poor opacification of pulmonary vasculature. Filling defects could not be adequately visualized. The patient also noted to have significant consolidation of left lower lobe with a wedge- shaped opacity measuring 4.8 cm in the longest diameter. The patient also had very small left pleural effusion. The patient with no evidence of pericardial effusion. Her RV appeared to be hypertrophied. The patient also noted to have prominent left hilar lymph node measuring 1.3 cm. The patient was started on treatment for community-acquired pneumonia given elevated white count and fever. The patient continues to have significant pain, worse with inspiration. The patient is scheduled to undergo repeat CT scan today to evaluate for pulmonary embolism. PAST MEDICAL HISTORY: 1. COPD. 2. Diabetes. 3. Depression. 4. GERD 5. Fibromyalgia. PAST SURGICAL HISTORY: 1. Ectopic . 2. Appendectomy. 3. Tubal ligation. MEDICATIONS: 1. Albuterol and ipratropium 1 puff q.4 hours p.r.n. 2. Nexium 40 mg daily. 3. Furosemide 20 mg daily. 4. Metformin 1000 mg p.o. b.i.d. 5. Pravastatin 20 mg daily. 6. Ranitidine 150 mg daily. 7. Amitriptyline 10 mg daily p.r.n. 8. Cyclobenzaprine 10 mg p.o. t.i.d. p.r.n. 9. Advair 250/50 one puff b.i.d. 10. Gabapentin 600 mg at night and at noon. 11. Lisinopril 10 mg p.o. daily. 12. Percocet 1 tablet q.4 hours. 13. Sertraline 100 mg daily. 14. Diphenhydramine 50 mg q.8 hours p.r.n. ALLERGIES: To LATEX and SALICYLATE. FAMILY HISTORY: Mother is alive with diabetes and COPD. Father from heart problems. SOCIAL HISTORY: Former smoker, quit smoking 4 years ago. No alcohol or drug abuse. She lives alone at home. REVIEW OF SYSTEMS: A 14-point review of systems was completed and as per HPI. PHYSICAL EXAM: The patient in bed, in no apparent distress, in discomfort with pain. Vital Signs: Temperature 100.3, pulse 107 beats per minute, respiratory rate 28 per minute, O2 sat 92% on room air, blood pressure 120/60. HEENT: Pupils equal and reactive to light. Mucous membranes moist. Lungs: Diffuse scattered wheezes bilaterally. No accessory muscle usage. Has significant pain and splinting on the left side. Cardiovascular: S1 and S2 present and regular. No murmurs or gallops. Abdomen: Soft, nontender, and nondistended. Bowel sounds present. Extremities: Normal range of motion. No fractures. Neurological: Alert, awake, and oriented x3. No focal deficits. Skin: Intact. No rash, no bruise. DIAGNOSTIC STUDIES/LAB DATA: WBC count 19.7, hemoglobin 8.9, hematocrit 28, platelet count 344. Sodium 131, potassium 3.9, chloride 99, bicarb 25, BUN 12, creatinine 1.15. Troponin elevated at 0.08 with the third value, repeat troponin within normal limits. CT of the chest from admission was personally reviewed by me. Results as described above in HPI. Echocardiogram was technically limited study with poor windows. The patient noted to have decreased RV systolic function, evidence of hyperdynamic left ventricle, and with EF of 60% to 65% predicted. Right ventricular pressures were not measured. Pulmonary pressures were not measured. IMPRESSION AND RECOMMENDATIONS: 61-year-old female with history of chronic obstructive pulmonary disease, admitted with left-sided chest pain, found to have left-sided mass in subpleural location, wedge shaped, concerning for possible pulmonary embolism and infarct in the lung. Also being treated for possible pneumonia and questionable lung abscess. The patient to undergo repeat CTA today for evaluation of pulmonary embolism. If the patient's CTA is negative for PE, would treat as pneumonia and obtain CT- guided biopsy of LLL lesion. Continue with current antibiotic coverage. Continue with bronchodilators. Would recommend adequate pain management to avoid splinting. Thank you for allowing me to participate in the care of your patient. Will follow up with you. Case was discussed with Dr. Joann Bailey. [id number]/[id number] #: [id number] SOFÍA
[2016-09-19] MEDS ORDERED: Enoxaparin(*) 150 MG/ML 1 ML SYRINGE SUBCUT SCH ×2 (00:15→11:00)
[2016-09-19] MEDS: Omeprazole CAP* 20 MG PO SCH (04:54)
[2016-09-19 05:18] LABS: Hematocrit 27 % (35-47); Hemoglobin 8.5 g/dl (12.0-16.0); Mean Corpuscular HGB Conc 31 g/dl (31-36); Mean Corpuscular Hemoglobin 23 pg (27-31); Mean Platelet Volume 7 um3 (7.4-10.4); Red Blood Count 3.78 10^6/ul (4.0-5.4); Red Cell Distribution Width 19 % (10.5-15); White Blood Count 21.7 10^3/ul (3.5-10.8)
[2016-09-19 05:20] LABS: Comments Flag Yes; Mean Corpuscular Volume 72 fL (80-97)
[2016-09-19 05:32] LABS: BUN/Creatinine Ratio 10.7 (8-20); Calcium 8.4 mg/dL (8.6-10.3); EGFR African American 31.7 (>60); EGFR Non-African American 24.6 (>60); Potassium 3.8 mmol/L (3.5-5.0)
[2016-09-19] MEDS: HYDROmorphone* 1 MG/ML 1 ML SYR IV SLOW PU PRN ×2 (06:48→11:52)
[2016-09-19] MEDS: fentaNYL Patch Check Q Shift 1 NOTE SCH ×3 (06:53→19:14)
[2016-09-19] MEDS: NS 0.9% 1000 ML* 1,000 ML IV SCH ×2 (08:00→21:00)
[2016-09-19] MEDS: Insulin LISPRO* 1 UNITS UNIT SUBCUT SCH ×3 (08:45→17:07)
[2016-09-19] MEDS: Lisinopril TAB* 10 MG PO SCH (08:46)
[2016-09-19] MEDS: Mometasone/Formoter 200/5 MDI INH SCH ×2 (09:05→20:42)
[2016-09-19] MEDS: Sertraline* 100 MG TAB PO SCH (09:05)
[2016-09-19] MEDS: Cefepime(*) 1 GM in NS 0.9% 50 ML* 50 ML IVPB SCH ×2 (10:17→21:00)
[2016-09-19] MEDS ORDERED: Vancomycin(*) 1,500 MG in NS 0.9% 250 ML* 250 ML IVPB ONE (10:30)
[2016-09-19] MEDS ORDERED: Vancomycin(*) 1,000 MG in NS 0.9% 250 ML* 250 ML IVPB ONE (10:30)
--- NOTE | 2016-09-19 10:31 | PN ---
Subjective Date of Service: 09/19/16 Interval History: Pt is still feeling lousy. This AM she started to cough up some thick black sputum. She feels more SOB and has been wheezing. She has not had a BM since prior to admission. She feels that she is urinating a normal amount. Objective Active Medications: Albuterol (Ventolin 2.5 Mg/3 Ml Neb.Suly*) 2.5 mg INH Q4H PRN PRN Reason: SOB/WHEEZING Amitriptyline HCl (Elavil Tab*) 10 mg PO BEDTIME PRN PRN Reason: PAIN Last Admin: 09/18/16 23:12 Dose: 10 mg Cyclobenzaprine HCl (Flexeril Tab*) 10 mg PO TID PRN PRN Reason: SPASMS Dextrose (D50w Syringe 50 Ml*) 12.5 gm IV PUSH .FOR FS < 60 - SS PRN PRN Reason: FS < 60 Diphenhydramine HCl (Benadryl Po*) 50 mg PO Q8H PRN PRN Reason: ITCHING Enoxaparin Sodium (Lovenox(*)) 130 mg SUBCUT Q12H [facility] Last Admin: 09/18/16 23:33 Dose: 130 mg Fentanyl (Duragesic Patch 25 Mcg/Hr*) 25 mcg TRANSDERM Q72H [facility] Last Admin: 09/18/16 09:12 Dose: 25 mcg Gabapentin (Neurontin Cap(*)) 600 mg PO 1200,1999 [facility] Last Admin: 09/18/16 20:56 Dose: 600 mg Hydromorphone HCl (Dilaudid Iv*) 1 mg IV SLOW PU Q3H PRN PRN Reason: PAIN Last Admin: 09/19/16 06:48 Dose: 1 mg Levofloxacin/Dextrose (Levaquin 750 Mg Ivpremix(*)) 750 mg in 150 mls @ 100 mls /hr IVPB Q24H [facility] Last Admin: 09/18/16 20:58 Dose: 100 mls/hr Sodium Chloride (Ns 0.9% 1000 Ml*) 1,000 mls @ 125 mls/hr IV PER RATE [facility] Last Admin: 09/19/16 08:00 Dose: 125 mls/hr Cefepime HCl 1 gm/ Sodium (Chloride) 50 mls @ 100 mls/hr IVPB Q12H [facility] Vancomycin HCl 1,000 mg/ (Sodium Chloride) 250 mls @ 166.667 mls/hr IVPB ONCE ONE PRN Reason: Protocol Stop: 09/19/16 11:59 Insulin Human Lispro (Humalog*) 0 units SUBCUT [facility] PRN Reason: Protocol Last Admin: 09/19/16 08:45 Dose: Not Given Lisinopril (Prinivil Tab*) 10 mg PO DAILY [facility] Last Admin: 09/19/16 08:46 Dose: Not Given Mometasone Furoate/Formoterol Fumar (Dulera 200/5 Mdi*) 2 puff INH BID [facility] Last Admin: 09/19/16 09:05 Dose: 2 puff Omeprazole (Prilosec Cap*) 20 mg PO DAILY@0600 [facility] Last Admin: 09/19/16 04:54 Dose: 20 mg Pharmacy Profile Note (Fentanyl Patch Check Q Shift) 1 note N/A 0700,1900 [facility] Last Admin: 09/19/16 06:53 Dose: 1 note Sertraline HCl (Zoloft*) 100 mg PO DAILY [facility] Last Admin: 09/19/16 09:05 Dose: 100 mg Vital Signs 09/18/16 09/18/16 09/18/16 11:07 11:19 12:19 Temperature 100.3 F Pulse Rate 107 Respiratory 28 30 28 Rate Blood Pressure 120/60 (mmHg) O2 Sat by Pulse 92 Oximetry 09/18/16 09/18/16 09/18/16 14:06 15:06 15:20 Temperature 98.4 F Pulse Rate 110 Respiratory 22 22 20 Rate Blood Pressure 92/63 (mmHg) O2 Sat by Pulse 97 Oximetry 09/18/16 09/18/16 09/18/16 16:31 18:09 19:09 Temperature Pulse Rate Respiratory 20 24 Rate Blood Pressure 120/70 (mmHg) O2 Sat by Pulse Oximetry 09/18/16 09/18/16 09/18/16 19:22 20:00 20:56 Temperature 101.4 F Pulse Rate 116 Respiratory 18 24 24 Rate Blood Pressure 101/48 (mmHg) O2 Sat by Pulse 96 Oximetry 09/18/16 09/18/16 09/18/16 22:56 23:13 23:27 Temperature 101.9 F Pulse Rate 117 Respiratory 24 24 24 Rate Blood Pressure 93/71 (mmHg) O2 Sat by Pulse 93 Oximetry 09/19/16 09/19/16 09/19/16 00:13 04:43 06:48 Temperature 101.2 F Pulse Rate 109 Respiratory 20 20 18 Rate Blood Pressure 105/57 (mmHg) O2 Sat by Pulse 97 Oximetry 09/19/16 09/19/16 07:24 08:25 Temperature 99.5 F Pulse Rate 102 Respiratory 22 Rate Blood Pressure 101/64 (mmHg) O2 Sat by Pulse 93 Oximetry Oxygen Devices in Use Now: None Appearance: Middle aged female sitting up in bed, mildy tachypnic, NAD Eyes: No Scleral Icterus Ears/Nose/Mouth/Throat: Mucous Membranes Moist Respiratory: Symmetrical Chest Expansion and Respiratory Effort, Clear to Auscultation - diminshed throughout with diffuse wheezes Cardiovascular: NL Sounds; No Murmurs; No JVD, - - tachycardic but regular,1-2+ pitting edema of B/L LE R>L Abdominal: NL Sounds; No Tenderness; No Distention Extremities: No Clubbing, Cyanosis Skin: No Rash or Ulcers, No Nodules or Sclerosis Neurological: Alert and Oriented x 3 Result Diagrams: 09/19/16 04:50 09/19/16 04:50 Additional Lab and Data: Lab Results 09/17/16 09/17/16 09/17/16 Range/Units 18:33 18:33 18:33 WBC 15.6 H (3.5-10.8) 10^3/ul RBC 4.43 (4.0-5.4) 10^6/ul Hgb 10.0 L (12.0-16.0) g/dl Hct 32 L (35-47) % MCV 72 L (80-97) fL MCH 23 L (27-31) pg MCHC 31 (31-36) g/dl RDW 19 H (10.5-15) % Plt Count 367 (150-450) 10^3/ul MPV 7 L (7.4-10.4) um3 Neut % (Auto) 83.6 H (38-83) % Lymph % (Auto) 9.2 L (25-47) % [place] % (Auto) 6.1 (1-9) % Eos % (Auto) 0.6 (0-6) % Baso % (Auto) 0.5 (0-2) % Absolute Neuts (auto) 13.0 H (1.5-7.7) 10^3/ul Absolute Lymphs (auto) 1.4 (1.0-4.8) 10^3/ul Absolute Monos (auto) 0.9 H (0-0.8) 10^3/ul Absolute Eos (auto) 0.1 (0-0.6) 10^3/ul Absolute Basos (auto) 0.1 (0-0.2) 10^3/ul Absolute Nucleated RBC 0.01 10^3/ul Nucleated RBC % 0 Sodium 132 L (133-145) mmol/L Potassium 3.9 (3.5-5.0) mmol/L Chloride 98 L (101-111) mmol/L Carbon Dioxide 26 (22-32) mmol/L Anion Gap 8 (2-11) mmol/L BUN 8 (6-24) mg/dL Creatinine 0.98 H (0.51-0.95) mg/dL Est GFR ( Amer) 74.7 (>60) Est GFR (Non-Af Amer) 58.1 (>60) BUN/Creatinine Ratio 8.2 (8-20) Glucose 153 H (70-100) mg/dL Lactic Acid 2.0 (0.5-2.0) mmol/L Calcium 9.1 (8.6-10.3) mg/dL Iron 10 L (50-212) ug/dL TIBC 328 (250-450) mcg/dL % Saturation 3 L (15-55) % Unsat Iron Binding 318 ug/dL Ferritin Pending Total Bilirubin 0.50 (0.2-1.0) mg/dL AST 11 L (13-39) U/L ALT 10 (7-52) U/L Alkaline Phosphatase 113 H (34-104) U/L Troponin I 0.07 H* (<0.04) ng/mL C-Reactive Protein 161.65 H (< 5.00) mg/L B-Natriuretic Peptide ( - 100) pg/mL Total Protein 7.6 (6.4-8.9) g/dL Albumin 3.6 (3.2-5.2) g/dL Globulin 4.0 (2-4) g/dL Albumin/Globulin Ratio 0.9 L (1-3) Vitamin B12 Pending Folate Pending 09/17/16 Range/Units 18:33 WBC (3.5-10.8) 10^3/ul RBC (4.0-5.4) 10^6/ul Hgb (12.0-16.0) g/dl Hct (35-47) % MCV (80-97) fL MCH (27-31) pg MCHC (31-36) g/dl RDW (10.5-15) % Plt Count (150-450) 10^3/ul MPV (7.4-10.4) um3 Neut % (Auto) (38-83) % Lymph % (Auto) (25-47) % [place] % (Auto) (1-9) % Eos % (Auto) (0-6) % Baso % (Auto) (0-2) % Absolute Neuts (auto) (1.5-7.7) 10^3/ul Absolute Lymphs (auto) (1.0-4.8) 10^3/ul Absolute Monos (auto) (0-0.8) 10^3/ul Absolute Eos (auto) (0-0.6) 10^3/ul Absolute Basos (auto) (0-0.2) 10^3/ul Absolute Nucleated RBC 10^3/ul Nucleated RBC % Sodium (133-145) mmol/L Potassium (3.5-5.0) mmol/L Chloride (101-111) mmol/L Carbon Dioxide (22-32) mmol/L Anion Gap (2-11) mmol/L BUN (6-24) mg/dL Creatinine (0.51-0.95) mg/dL Est GFR ( Amer) (>60) Est GFR (Non-Af Amer) (>60) BUN/Creatinine Ratio (8-20) Glucose (70-100) mg/dL Lactic Acid (0.5-2.0) mmol/L Calcium (8.6-10.3) mg/dL Iron (50-212) ug/dL TIBC (250-450) mcg/dL % Saturation (15-55) % Unsat Iron Binding ug/dL Ferritin Total Bilirubin (0.2-1.0) mg/dL AST (13-39) U/L ALT (7-52) U/L Alkaline Phosphatase (34-104) U/L Troponin I (<0.04) ng/mL C-Reactive Protein (< 5.00) mg/L B-Natriuretic Peptide 73 ( - 100) pg/mL Total Protein (6.4-8.9) g/dL Albumin (3.2-5.2) g/dL Globulin (2-4) g/dL Albumin/Globulin Ratio (1-3) Vitamin B12 Folate Microbiology and Other Data: Microbiology 09/18/16 05:16 Aerobic Blood Culture - Preliminary Blood Venous No Growth Day 1 Anaerobic Blood Culture - Preliminary No Growth Day 1 Assess/Plan/Problems-Billing Ms Fuller is a 61 yo F who has a h/o COPD, fibromyalgia, type II DM and depression who presented to the ER with c/o 2 weeks of intermittent fevers and the sudden onset of severe L sided chest pain worse with deep breath and movement. - Patient Problems (1) Chest pain Current Visit: Yes Status: Acute Code(s): R07.9 - CHEST PAIN, UNSPECIFIED SNOMED Code(s): 76093912 Comment: Secondary to pulmonary process-CTA yesterday was also of very poor quality. (2) Pulmonary embolism with infarction Current Visit: Yes Status: Acute Code(s): I26.99 - OTHER PULMONARY EMBOLISM WITHOUT ACUTE COR PULMONALE SNOMED Code(s): 9070379634643 Comment: I am more suspicous that the patient may have had a large PE with subsequent pulmonary infarct given the appearance on CTA yesterday. Will continue full dose lovenox, supplemental O2. As the diagnosis of PE is not confirmed will get D-dimer, if negative would rule out PE however if positive this will not help to confirm the diagnosis as it could be elevated for other reasons. Will also get dopplers of the B/L LE. The patient is now bringing up thick sputum. Initially it was described as black in color by her nurse. The most recent episode of sputum production reveals very thick truong sputum. Will broaden her Abx coverage to vanco, cefepime and levaquin (modify dosing based on renal function). Will get ID consult today and pulmonary will follow up. I am concerned that despite treatment she remains febrile, tachycardic, tachypnic and has a worsening leukocytosis. The patient is septic with a SOFA score of 3 ( 1 point for MAP<70, 2 points for Cr 2.0). Will check lactic acid now. (3) Elevated troponin Current Visit: Yes Status: Acute Code(s): R74.8 - ABNORMAL LEVELS OF OTHER SERUM ENZYMES SNOMED Code(s): 206602331 Comment: Likely demand ischemia. No further work up at this time. (4) Anemia Current Visit: Yes Status: Acute Code(s): D64.9 - ANEMIA, UNSPECIFIED SNOMED Code(s): 268665074 Comment: THe patient's H/H is worse again today. Likely partially dilutional but will await iron, B12 studies. Check stool guaiac. (5) COPD (chronic obstructive pulmonary disease) Current Visit: Yes Status: Acute Code(s): J44.9 - CHRONIC OBSTRUCTIVE PULMONARY DISEASE, UNSPECIFIED SNOMED Code(s): 01119875 Comment: Pt is now wheezy. I have ordered prn albuterol. Continue dulera. (6) Type II diabetes mellitus Current Visit: Yes Status: Acute Comment: Blood sugars are under fair control. Continue lispro sliding scale. (7) DVT prophylaxis Current Visit: Yes Status: Acute Code(s): WQQ1341 - SNOMED Code(s): 879305241 Comment: full dose lovenox (8) Full code status Current Visit: Yes Status: Acute Code(s): Z78.9 - OTHER SPECIFIED HEALTH STATUS SNOMED Code(s): 258411152
[2016-09-19] MEDS: Albuterol 2.5 MG/3 ML NEB.SOL* (0.083%) INH PRN ×3 (10:32→23:16)
[2016-09-19] MEDS ORDERED: Vancomycin per Pharmacy* NOTE FOLLOW UP PRN (10:49)
--- NOTE | 2016-09-19 11:14 | RAD ---
HISTORY: Cough, pulmonary edema COMPARISONS: September 17, 2016 VIEWS:1: Single frontal portable view of the chest at 9:21 AM FINDINGS: LINES AND TUBES: None. CARDIOMEDIASTINAL SILHOUETTE: The cardiomediastinal silhouette is normal for portable technique. PLEURA: The costophrenic angles are sharp. No pleural abnormalities are noted. LUNG PARENCHYMA: The lung volumes are low. The lungs are clear accounting for the phase of respiration. ABDOMEN: The upper abdomen is clear. There is no subphrenic gas. BONES AND SOFT TISSUES: No bone or soft tissue abnormalities are noted. IMPRESSION: LOW LUNG VOLUMES. NO ACTIVE CARDIOPULMONARY DISEASE.
[2016-09-19] MEDS: Gabapentin CAP(*) 300 MG PO SCH ×2 (11:51→20:42)
[2016-09-19 12:14] LABS: Total Iron Binding Capacity 258 mcg/dL (250-450); Transferrin 184 mg/dL (203-362)
[2016-09-19 12:34] LABS: Ferritin 136.9 ng/mL (11-307)
[2016-09-19 12:38] LABS: Vitamin B12 210 pg/mL (180-914)
[2016-09-19 12:52] LABS: Iron < 15 ug/dL (50-212)
--- NOTE | 2016-09-19 13:04 | RAD ---
HISTORY: Bilateral lower extremity swelling COMPARISONS: None relevant TECHNIQUE: Multiple transverse and longitudinal ultrasound images were obtained of the bilateral lower extremities from the level of the common femoral vein inferiorly through to the infrapopliteal veins using grayscale, color Doppler, and spectral Doppler imaging with and without compression and with augmentation. FINDINGS: VEINS: The venous system of the bilateral lower extremities is compressible throughout its course, with normal flow on color Doppler imaging and normal response to augmentation on spectral Doppler imaging. SOFT TISSUES: Unremarkable. OTHER FINDINGS: None. IMPRESSION: NO RIGHT LOWER EXTREMITY DEEP VEIN THROMBOSIS. NO LEFT LOWER EXTREMITY DEEP VEIN THROMBOSIS
[2016-09-19] MEDS ORDERED: Acetaminophen TAB* 325 MG PO PRN (14:32)
[2016-09-19] MEDS: Cyanocobalamin TAB* 500 MCG PO SCH (17:22)
--- NOTE | 2016-09-19 18:05 | PN ---
Progress Note - Progress Note Note: Pulm consult f/u note 09/19/16. Pt seen and examined at bedside.Pt reports improvement in breathing. She is wheezing audibly. She was transferred to ICU for possible sepsis given hypotension and tachycardia. Active Medications Generic Name Dose Route Start Last Admin Trade Name Freq PRN Reason Stop Dose Admin Acetaminophen 650 mg 09/19/16 14:32 09/19/16 14:49 Tylenol Tab* PO 650 mg Q4H PRN Administration pain or fever Albuterol 2.5 mg 09/19/16 09:55 09/19/16 14:33 Ventolin 2.5 Mg/3 Ml Neb.Suly* INH 2.5 mg Q4H PRN Administration SOB/WHEEZING Amitriptyline HCl 10 mg 09/17/16 21:59 09/18/16 23:12 Elavil Tab* PO 10 mg BEDTIME PRN Administration PAIN Cyanocobalamin 1,000 mcg 09/19/16 14:00 09/19/16 17:22 Vitamin B12 Tab* PO 1,000 mcg DAILY MARY BETH Administration Cyclobenzaprine HCl 10 mg 09/17/16 21:59 Flexeril Tab* PO TID PRN SPASMS Dextrose 12.5 gm 09/17/16 21:10 D50w Syringe 50 Ml* IV PUSH .FOR FS < 60 - SS PRN FS < 60 Diphenhydramine HCl 50 mg 09/17/16 21:59 Benadryl Po* PO Q8H PRN ITCHING Enoxaparin Sodium 130 mg 09/19/16 23:00 Lovenox(*) SUBCUT Q24HR@2300 AMRY BETH Fentanyl 25 mcg 09/18/16 09:00 09/18/16 09:12 Duragesic Patch 25 Mcg/Hr* TRANSDERM 25 mcg Q72H MARY BETH Administration Ferrous Sulfate 325 mg 09/19/16 21:00 Ferrous Sulfate Tab* PO BID MARY BETH Gabapentin 600 mg 09/18/16 12:00 09/19/16 11:51 Neurontin Cap(*) PO 600 mg 1200,2000 MARY BETH Administration Hydromorphone HCl 1 mg 09/18/16 12:39 09/19/16 11:52 Dilaudid Iv* IV SLOW PU 1 mg Q3H PRN Administration PAIN Sodium Chloride 1,000 mls @ 125 mls/hr 09/17/16 22:15 09/19/16 08:00 Ns 0.9% 1000 Ml* IV 125 mls/hr PER RATE MARY BETH Administration Cefepime HCl 1 gm/ Sodium 50 mls @ 100 mls/hr 09/19/16 10:00 09/19/16 10:17 Chloride IVPB 100 mls/hr Q12H MARY BETH Administration Levofloxacin/Dextrose 750 mg in 150 mls @ 100 mls/hr 09/20/16 21:00 Levaquin 750 Mg Ivpremix(*) IVPB Q48H [facility] Insulin Human Lispro 0 units 09/18/16 07:30 09/19/16 17:07 Humalog* SUBCUT Not Given AC [facility] Protocol Lisinopril 10 mg 09/18/16 09:00 09/19/16 08:46 Prinivil Tab* PO Not Given DAILY [facility] Mometasone Furoate/Formoterol Fumar 2 puff 09/18/16 09:00 09/19/16 09:05 Dulera 200/5 Mdi* INH 2 puff BID [facility] Administration Omeprazole 20 mg 09/19/16 05:00 09/19/16 04:54 Prilosec Cap* PO 20 mg DAILY@0600 MARY BETH Administration Pharmacy Consult 1 note 09/19/16 10:49 Vancomycin Per Pharmacy* FOLLOW UP . PRN PER PROTOCOL Pharmacy Consult 1 note 09/20/16 06:00 Vancomycin Random Level* FOLLOW UP 09/20/16 06:01 ONCE ONE Pharmacy Profile Note 1 note 09/18/16 19:00 09/19/16 15:39 Fentanyl Patch Check Q Shift N/A 1 note 0700,1900 [facility] Administration Prednisone 30 mg 09/19/16 18:00 Deltasone Tab* PO DAILY WITH MEAL [facility] Sertraline HCl 100 mg 09/18/16 09:00 09/19/16 09:05 Zoloft* PO 100 mg DAILY MARY BETH Administration Vital Signs Temp Pulse Resp BP Pulse Ox 99.6 F 106 18 123/108 95 09/19/16 15:47 09/19/16 17:00 09/19/16 17:00 09/19/16 17:00 09/19/16 17:00 O/E: Morbidly obese female in NAD HEENT: PERRLA, No JVD Resp: Wheeze present, decreased air entry at bases CVS: S1, S2+ Abd: Obese, BS+ Ext: No edema Skin: No rash, no bruise Neuro: NO focal defecits Laboratory Results - last 24 hr 09/19/16 09/19/16 09/19/16 04:50 04:50 08:07 WBC 21.7 H RBC 3.78 L Hgb 8.5 L Hct 27 L MCV 72 L MCH 23 L MCHC 31 RDW 19 H Plt Count 371 MPV 7 L Neut % (Auto) 84.8 H Lymph % (Auto) 8.6 L [place] % (Auto) 6.1 Eos % (Auto) 0.3 Baso % (Auto) 0.2 Absolute Neuts (auto) 18.4 H Absolute Lymphs (auto) 1.9 Absolute Monos (auto) 1.3 H Absolute Eos (auto) 0.1 Absolute Basos (auto) 0 Absolute Nucleated RBC 0.01 Nucleated RBC % 0.1 D-Dimer, Quantitative Sodium 128 L Potassium 3.8 Chloride 95 L Carbon Dioxide 23 Anion Gap 10 BUN 22 Creatinine 2.06 H Est GFR ( Amer) 31.7 Est GFR (Non-Af Amer) 24.6 BUN/Creatinine Ratio 10.7 Glucose 113 H POC Glucose (mg/dL) 111 H Lactic Acid Calcium 8.4 L Iron TIBC % Saturation Unsat Iron Binding Ferritin Vitamin B12 09/19/16 09/19/16 09/19/16 11:24 11:24 11:24 WBC RBC Hgb Hct MCV MCH MCHC RDW Plt Count MPV Neut % (Auto) Lymph % (Auto) [place] % (Auto) Eos % (Auto) Baso % (Auto) Absolute Neuts (auto) Absolute Lymphs (auto) Absolute Monos (auto) Absolute Eos (auto) Absolute Basos (auto) Absolute Nucleated RBC Nucleated RBC % D-Dimer, Quantitative 791 H Sodium Potassium Chloride Carbon Dioxide Anion Gap BUN Creatinine Est GFR ( Amer) Est GFR (Non-Af Amer) BUN/Creatinine Ratio Glucose POC Glucose (mg/dL) Lactic Acid 1.1 Calcium Iron < 15 L TIBC 258 D % Saturation 6 L Unsat Iron Binding 243.37135 Ferritin 136.9 Vitamin B12 210 09/19/16 11:55 WBC RBC Hgb Hct MCV MCH MCHC RDW Plt Count MPV Neut % (Auto) Lymph % (Auto) [place] % (Auto) Eos % (Auto) Baso % (Auto) Absolute Neuts (auto) Absolute Lymphs (auto) Absolute Monos (auto) Absolute Eos (auto) Absolute Basos (auto) Absolute Nucleated RBC Nucleated RBC % D-Dimer, Quantitative Sodium Potassium Chloride Carbon Dioxide Anion Gap BUN Creatinine Est GFR ( Amer) Est GFR (Non-Af Amer) BUN/Creatinine Ratio Glucose POC Glucose (mg/dL) 135 H Lactic Acid Calcium Iron TIBC % Saturation Unsat Iron Binding Ferritin Vitamin B12 CTA chest: Non-diagnostic for PE, Wedge shaped LLL opacity noted along with prominant hilar node. Atelectasis of LLL basal segment I/R; Pt is 61 y o morbidly obese female with h/o COPD a/w fever, tachycardia, leucocytosis being treated for CAP with evidence of wedge shaped infarct in LLL , CTA non-diagnostic, underwent rpt CTA today which didnot confirm PE due to delayed contrast in pulm arteries. Pt with hypotension, tachycardia and ARF transferred to ICU for close monitoring Pt received fluid boluses and is hemodynamically stable currently O2 requirements have not changed much She has audible wheeze today, will start prednisone Underlying etilogy still unclear- infectious versus inflammatory versus neoplastic ? Wegners given pulmonary lesion and renal failure, will check ALBER, ANCA Contrast induced nephropathy also in differential for RF Will order U/A Will need CT guided biopsy when stable
[2016-09-19] MEDS: predniSONE TAB* 10 MG PO SCH (18:37)
[2016-09-19] MEDS ORDERED: NS 0.9% 50 ML* 50 ML ONE (20:29)
[2016-09-19 20:37] LABS: Urine Random Sodium < 18 mmol/L
[2016-09-19] MEDS: Ferrous Sulfate TAB* 325 MG PO SCH (20:42)
[2016-09-19 20:46] LABS: Urine Bilirubin Negative (Negative); Urine Glucose Negative (Negative); Urine Nitrite Negative (Negative)
[2016-09-19] MEDS: Enoxaparin(*) 150 MG/ML 1 ML SYRINGE SUBCUT SCH (23:00)
[2016-09-20] MEDS ORDERED: Vancomycin(*) 750 MG in NS 0.9% 250 ML* 250 ML IVPB SCH ×2
[2016-09-20 05:02] LABS: Albumin 2.9 g/dL (3.2-5.2); BUN/Creatinine Ratio 15.7 (8-20); Calcium 8.5 mg/dL (8.6-10.3); EGFR African American 49.5 (>60); EGFR Non-African American 38.5 (>60); Globulin 3.7 g/dL (2-4); Potassium 4.3 mmol/L (3.5-5.0); Total Bilirubin 0.3 mg/dL (0.2-1.0); Total Protein 6.6 g/dL (6.4-8.9)
[2016-09-20 05:09] LABS: Vancomycin Random 6.5 mcg/mL
[2016-09-20 05:12] LABS: Hematocrit 25 % (35-47); Hemoglobin 7.7 g/dl (12.0-16.0); Mean Corpuscular HGB Conc 31 g/dl (31-36); Mean Corpuscular Hemoglobin 22 pg (27-31); Mean Platelet Volume 7 um3 (7.4-10.4); Red Blood Count 3.45 10^6/ul (4.0-5.4); Red Cell Distribution Width 19 % (10.5-15); White Blood Count 15.3 10^3/ul (3.5-10.8)
[2016-09-20 05:18] LABS: Comments Flag Yes; Mean Corpuscular Volume 72 fL (80-97)
[2016-09-20] MEDS: Omeprazole CAP* 20 MG PO SCH (05:25)
[2016-09-20] MEDS: NS 0.9% 1000 ML* 1,000 ML IV SCH ×2 (05:37→15:50)
[2016-09-20] MEDS ORDERED: Vancomycin Random Level* NOTE FOLLOW UP ONE (06:00)
[2016-09-20] MEDS: fentaNYL Patch Check Q Shift 1 NOTE SCH ×2 (07:35→18:37)
[2016-09-20] MEDS: Mometasone/Formoter 200/5 MDI INH SCH ×2 (07:36→20:39)
[2016-09-20] MEDS: Insulin LISPRO* 1 UNITS UNIT SUBCUT SCH ×3 (08:06→17:00)
[2016-09-20] MEDS: Ferrous Sulfate TAB* 325 MG PO SCH ×2 (08:07→19:41)
[2016-09-20] MEDS: Sertraline* 100 MG TAB PO SCH (08:07)
[2016-09-20] MEDS: Cyanocobalamin TAB* 500 MCG PO SCH (08:07)
[2016-09-20] MEDS: predniSONE TAB* 10 MG PO SCH (08:07)
[2016-09-20] MEDS: Lisinopril TAB* 10 MG PO SCH (08:08)
--- NOTE | 2016-09-20 08:49 | PN ---
Subjective Date of Service: 09/20/16 Interval History: Pt is feeling better today. Her breathing is much more comfortable. She denies severe pain with deep inspiration. She has been coughing up thick yellow/truong sputum. She has not had a BM since coming to the hospital. She states she is eating/drinking well. Objective Active Medications: Acetaminophen (Tylenol Tab*) 650 mg PO Q4H PRN PRN Reason: pain or fever Last Admin: 09/19/16 14:49 Dose: 650 mg Albuterol (Ventolin 2.5 Mg/3 Ml Neb.Suly*) 2.5 mg INH Q4H PRN PRN Reason: SOB/WHEEZING Last Admin: 09/19/16 23:16 Dose: 2.5 mg Amitriptyline HCl (Elavil Tab*) 10 mg PO BEDTIME PRN PRN Reason: PAIN Last Admin: 09/18/16 23:12 Dose: 10 mg Cyanocobalamin (Vitamin B12 Tab*) 1,000 mcg PO DAILY [facility] Last Admin: 09/20/16 08:07 Dose: 1,000 mcg Cyclobenzaprine HCl (Flexeril Tab*) 10 mg PO TID PRN PRN Reason: SPASMS Dextrose (D50w Syringe 50 Ml*) 12.5 gm IV PUSH .FOR FS < 60 - SS PRN PRN Reason: FS < 60 Diphenhydramine HCl (Benadryl Po*) 50 mg PO Q8H PRN PRN Reason: ITCHING Enoxaparin Sodium (Lovenox(*)) 130 mg SUBCUT Q24HR@2300 [facility] Last Admin: 09/19/16 23:00 Dose: 130 mg Fentanyl (Duragesic Patch 25 Mcg/Hr*) 25 mcg TRANSDERM Q72H [facility] Last Admin: 09/18/16 09:12 Dose: 25 mcg Ferrous Sulfate (Ferrous Sulfate Tab*) 325 mg PO BID [facility] Last Admin: 09/20/16 08:07 Dose: 325 mg Gabapentin (Neurontin Cap(*)) 600 mg PO 1200,2000 [facility] Last Admin: 09/19/16 20:42 Dose: 600 mg Hydromorphone HCl (Dilaudid Iv*) 1 mg IV SLOW PU Q3H PRN PRN Reason: PAIN Last Admin: 09/19/16 11:52 Dose: 1 mg Sodium Chloride (Ns 0.9% 1000 Ml*) 1,000 mls @ 125 mls/hr IV PER RATE [facility] Last Admin: 09/20/16 05:37 Dose: 125 mls/hr Cefepime HCl 1 gm/ Sodium (Chloride) 50 mls @ 100 mls/hr IVPB Q12H [facility] Last Admin: 09/19/16 21:00 Dose: 100 mls/hr Levofloxacin/Dextrose (Levaquin 750 Mg Ivpremix(*)) 750 mg in 150 mls @ 100 mls /hr IVPB Q48H [facility] Vancomycin HCl 1,000 mg/ (Sodium Chloride) 250 mls @ 166.667 mls/hr IVPB Q8H [facility] Insulin Human Lispro (Humalog*) 0 units SUBCUT AC [facility] PRN Reason: Protocol Last Admin: 09/20/16 08:06 Dose: 3 unit Lisinopril (Prinivil Tab*) 10 mg PO DAILY [facility] Last Admin: 09/20/16 08:08 Dose: 10 mg Mometasone Furoate/Formoterol Fumar (Dulera 200/5 Mdi*) 2 puff INH BID [facility] Last Admin: 09/20/16 07:36 Dose: 2 puff Omeprazole (Prilosec Cap*) 20 mg PO DAILY@0600 [facility] Last Admin: 09/20/16 05:25 Dose: 20 mg Pharmacy Consult (Vancomycin Per Pharmacy*) 1 note FOLLOW UP . PRN PRN Reason: PER PROTOCOL Pharmacy Profile Note (Fentanyl Patch Check Q Shift) 1 note N/A 0700,1900 [facility] Last Admin: 09/20/16 07:35 Dose: 1 note Pharmacy Profile Note (Vancomycin Trough Check) 1 note FOLLOW UP 0830 ONE Stop: 09/21/16 08:31 Prednisone (Deltasone Tab*) 30 mg PO DAILY WITH MEAL [facility] Last Admin: 09/20/16 08:07 Dose: 30 mg Sertraline HCl (Zoloft*) 100 mg PO DAILY [facility] Last Admin: 09/20/16 08:07 Dose: 100 mg Vital Signs 09/19/16 09/19/16 09/19/16 10:34 11:04 11:51 Temperature 100.0 F Pulse Rate 108 110 Respiratory 18 20 22 Rate Blood Pressure 95/70 (mmHg) O2 Sat by Pulse 95 94 Oximetry 09/19/16 09/19/16 09/19/16 11:52 12:02 12:52 Temperature Pulse Rate 105 Respiratory 22 22 20 Rate Blood Pressure (mmHg) O2 Sat by Pulse 92 Oximetry 09/19/16 09/19/16 09/19/16 13:32 13:51 14:35 Temperature 102.4 F Pulse Rate 113 106 Respiratory 18 21 24 Rate Blood Pressure 99/49 (mmHg) O2 Sat by Pulse 96 94 Oximetry 09/19/16 09/19/16 09/19/16 15:16 15:20 15:21 Temperature 99.6 F Pulse Rate 113 Respiratory 22 21 Rate Blood Pressure 122/54 122/54 (mmHg) O2 Sat by Pulse 89 Oximetry 09/19/16 09/19/16 09/19/16 15:25 15:30 15:47 Temperature 99.6 F 99.6 F Pulse Rate 110 Respiratory 20 22 Rate Blood Pressure 112/67 (mmHg) O2 Sat by Pulse 94 Oximetry 09/19/16 09/19/16 09/19/16 16:00 16:30 17:00 Temperature Pulse Rate 108 105 106 Respiratory 22 18 18 Rate Blood Pressure 129/91 129/79 123/108 (mmHg) O2 Sat by Pulse 93 94 95 Oximetry 09/19/16 09/19/16 09/19/16 17:30 18:00 18:30 Temperature Pulse Rate 104 104 112 Respiratory 17 20 23 Rate Blood Pressure 101/75 112/79 109/65 (mmHg) O2 Sat by Pulse 95 98 94 Oximetry 09/19/16 09/19/16 09/19/16 19:00 19:01 19:28 Temperature 98.6 F Pulse Rate 110 109 Respiratory 19 19 Rate Blood Pressure (mmHg) O2 Sat by Pulse 94 94 Oximetry 09/19/16 09/19/16 09/19/16 19:30 20:00 20:03 Temperature Pulse Rate 109 107 109 Respiratory 18 18 18 Rate Blood Pressure 95/56 92/73 (mmHg) O2 Sat by Pulse 94 94 96 Oximetry 09/19/16 09/19/16 09/19/16 20:31 21:00 21:30 Temperature Pulse Rate 109 108 108 Respiratory 19 21 18 Rate Blood Pressure 142/107 116/66 117/74 (mmHg) O2 Sat by Pulse 92 93 85 Oximetry 09/19/16 09/19/16 09/19/16 22:00 22:30 23:00 Temperature Pulse Rate 102 100 121 Respiratory 19 17 23 Rate Blood Pressure 122/65 113/75 126/81 (mmHg) O2 Sat by Pulse 93 92 93 Oximetry 09/19/16 09/19/16 09/19/16 23:16 23:31 23:42 Temperature 99.6 F Pulse Rate 108 108 Respiratory 22 17 Rate Blood Pressure (mmHg) O2 Sat by Pulse 94 96 Oximetry 09/20/16 09/20/16 09/20/16 00:00 00:03 00:06 Temperature Pulse Rate 110 110 109 Respiratory 18 18 21 Rate Blood Pressure 107/93 (mmHg) O2 Sat by Pulse 89 89 88 Oximetry 09/20/16 09/20/16 09/20/16 01:00 01:30 02:00 Temperature Pulse Rate 108 98 94 Respiratory 20 16 14 Rate Blood Pressure 104/75 116/62 115/58 (mmHg) O2 Sat by Pulse 89 89 91 Oximetry 09/20/16 09/20/16 09/20/16 02:30 03:00 03:30 Temperature Pulse Rate 94 90 87 Respiratory 16 16 13 Rate Blood Pressure 134/67 121/65 80/59 (mmHg) O2 Sat by Pulse 92 91 92 Oximetry 09/20/16 09/20/16 09/20/16 03:49 04:00 04:30 Temperature 97.3 F Pulse Rate 92 87 Respiratory 16 16 Rate Blood Pressure 119/71 120/66 (mmHg) O2 Sat by Pulse 91 92 Oximetry 09/20/16 09/20/16 09/20/16 05:00 05:30 05:49 Temperature Pulse Rate 82 82 Respiratory 14 16 14 Rate Blood Pressure 123/69 119/70 (mmHg) O2 Sat by Pulse 94 95 Oximetry 09/20/16 09/20/16 09/20/16 06:00 06:30 07:00 Temperature Pulse Rate 81 78 92 Respiratory 17 14 18 Rate Blood Pressure 124/73 119/67 97/78 (mmHg) O2 Sat by Pulse 95 94 96 Oximetry 09/20/16 09/20/16 09/20/16 07:33 07:38 07:39 Temperature Pulse Rate 89 88 20 Respiratory 20 23 95 Rate Blood Pressure 133/74 (mmHg) O2 Sat by Pulse 95 95 88 Oximetry 09/20/16 09/20/16 09/20/16 07:43 08:00 08:28 Temperature 97.9 F Pulse Rate 88 Respiratory 19 Rate Blood Pressure 92/75 (mmHg) O2 Sat by Pulse 94 94 Oximetry Oxygen Devices in Use Now: Nasal Cannula - 3L-94% Appearance: Middle aged female sitting up in a chair, NAD Eyes: No Scleral Icterus Ears/Nose/Mouth/Throat: Mucous Membranes Moist Respiratory: Symmetrical Chest Expansion and Respiratory Effort, - - diminished breath sounds about 1/[address] up on L, R CTA Cardiovascular: NL Sounds; No Murmurs; No JVD, RRR, - - 1+ B/L LE edema Abdominal: NL Sounds; No Tenderness; No Distention Extremities: No Clubbing, Cyanosis Skin: No Rash or Ulcers, No Nodules or Sclerosis Neurological: Alert and Oriented x 3 Result Diagrams: 09/20/16 04:35 09/20/16 04:35 Additional Lab and Data: Lab Results 09/17/16 09/17/16 09/17/16 Range/Units 18:33 18:33 18:33 WBC 15.6 H (3.5-10.8) 10^3/ul RBC 4.43 (4.0-5.4) 10^6/ul Hgb 10.0 L (12.0-16.0) g/dl Hct 32 L (35-47) % MCV 72 L (80-97) fL MCH 23 L (27-31) pg MCHC 31 (31-36) g/dl RDW 19 H (10.5-15) % Plt Count 367 (150-450) 10^3/ul MPV 7 L (7.4-10.4) um3 Neut % (Auto) 83.6 H (38-83) % Lymph % (Auto) 9.2 L (25-47) % Nicollet % (Auto) 6.1 (1-9) % Eos % (Auto) 0.6 (0-6) % Baso % (Auto) 0.5 (0-2) % Absolute Neuts (auto) 13.0 H (1.5-7.7) 10^3/ul Absolute Lymphs (auto) 1.4 (1.0-4.8) 10^3/ul Absolute Monos (auto) 0.9 H (0-0.8) 10^3/ul Absolute Eos (auto) 0.1 (0-0.6) 10^3/ul Absolute Basos (auto) 0.1 (0-0.2) 10^3/ul Absolute Nucleated RBC 0.01 10^3/ul Nucleated RBC % 0 Sodium 132 L (133-145) mmol/L Potassium 3.9 (3.5-5.0) mmol/L Chloride 98 L (101-111) mmol/L Carbon Dioxide 26 (22-32) mmol/L Anion Gap 8 (2-11) mmol/L BUN 8 (6-24) mg/dL Creatinine 0.98 H (0.51-0.95) mg/dL Est GFR ( Amer) 74.7 (>60) Est GFR (Non-Af Amer) 58.1 (>60) BUN/Creatinine Ratio 8.2 (8-20) Glucose 153 H (70-100) mg/dL Lactic Acid 2.0 (0.5-2.0) mmol/L Calcium 9.1 (8.6-10.3) mg/dL Iron 10 L (50-212) ug/dL TIBC 328 (250-450) mcg/dL % Saturation 3 L (15-55) % Unsat Iron Binding 318 ug/dL Ferritin Pending Total Bilirubin 0.50 (0.2-1.0) mg/dL AST 11 L (13-39) U/L ALT 10 (7-52) U/L Alkaline Phosphatase 113 H (34-104) U/L Troponin I 0.07 H* (<0.04) ng/mL C-Reactive Protein 161.65 H (< 5.00) mg/L B-Natriuretic Peptide ( - 100) pg/mL Total Protein 7.6 (6.4-8.9) g/dL Albumin 3.6 (3.2-5.2) g/dL Globulin 4.0 (2-4) g/dL Albumin/Globulin Ratio 0.9 L (1-3) Vitamin B12 Pending Folate Pending 09/17/16 Range/Units 18:33 WBC (3.5-10.8) 10^3/ul RBC (4.0-5.4) 10^6/ul Hgb (12.0-16.0) g/dl Hct (35-47) % MCV (80-97) fL MCH (27-31) pg MCHC (31-36) g/dl RDW (10.5-15) % Plt Count (150-450) 10^3/ul MPV (7.4-10.4) um3 Neut % (Auto) (38-83) % Lymph % (Auto) (25-47) % Nicollet % (Auto) (1-9) % Eos % (Auto) (0-6) % Baso % (Auto) (0-2) % Absolute Neuts (auto) (1.5-7.7) 10^3/ul Absolute Lymphs (auto) (1.0-4.8) 10^3/ul Absolute Monos (auto) (0-0.8) 10^3/ul Absolute Eos (auto) (0-0.6) 10^3/ul Absolute Basos (auto) (0-0.2) 10^3/ul Absolute Nucleated RBC 10^3/ul Nucleated RBC % Sodium (133-145) mmol/L Potassium (3.5-5.0) mmol/L Chloride (101-111) mmol/L Carbon Dioxide (22-32) mmol/L Anion Gap (2-11) mmol/L BUN (6-24) mg/dL Creatinine (0.51-0.95) mg/dL Est GFR ( Amer) (>60) Est GFR (Non-Af Amer) (>60) BUN/Creatinine Ratio (8-20) Glucose (70-100) mg/dL Lactic Acid (0.5-2.0) mmol/L Calcium (8.6-10.3) mg/dL Iron (50-212) ug/dL TIBC (250-450) mcg/dL % Saturation (15-55) % Unsat Iron Binding ug/dL Ferritin Total Bilirubin (0.2-1.0) mg/dL AST (13-39) U/L ALT (7-52) U/L Alkaline Phosphatase (34-104) U/L Troponin I (<0.04) ng/mL C-Reactive Protein (< 5.00) mg/L B-Natriuretic Peptide 73 ( - 100) pg/mL Total Protein (6.4-8.9) g/dL Albumin (3.2-5.2) g/dL Globulin (2-4) g/dL Albumin/Globulin Ratio (1-3) Vitamin B12 Folate Microbiology and Other Data: Microbiology 09/18/16 05:16 Aerobic Blood Culture - Preliminary Blood Venous No Growth Day 1 Anaerobic Blood Culture - Preliminary No Growth Day 1 Assess/Plan/Problems-Billing Ms Fuller is a 61 yo F who has a h/o COPD, fibromyalgia, type II DM and depression who presented to the ER with c/o 2 weeks of intermittent fevers and the sudden onset of severe L sided chest pain worse with deep breath and movement. - Patient Problems (1) Pulmonary embolism with infarction Current Visit: Yes Status: Acute Code(s): I26.99 - OTHER PULMONARY EMBOLISM WITHOUT ACUTE COR PULMONALE SNOMED Code(s): 4177438739470 Comment: The patient has improved some today. The etiology of the LLL process is still not clear. I will continue to treat for PE with full dose lovenox but this diagnosis has not been confirmed. LE dopplers negative for DVT. Ddimer was positive though could be elevated for any number of reasons. Will continue broad spectrum Abx as finally her WBC count has started to trend down and clinically she appears to be somewhat improved. She continues to bring up thick sputum. Her SOFA score today is 2 (1 point for Creatinine 1.4 and 1 point for MAP <70). At this point the patient is appearing much more stable and will transfer the patient back to telemetry. (2) Chest pain Current Visit: Yes Status: Acute Code(s): R07.9 - CHEST PAIN, UNSPECIFIED SNOMED Code(s): 80535025 Comment: Much improved today. Pain likely secondary to process in LLL. (3) ARF (acute renal failure) Current Visit: Yes Status: Acute Comment: The patient developed acute renal failure yesterday with her Creatinine bumping up to 2.06. With continued hydration this has improved to 1.4 today. Her increase in creatinine was likely secondary to her severe infection, IV contrast dye and perhaps being in a pre- renal state. (4) Anemia Current Visit: Yes Status: Acute Code(s): D64.9 - ANEMIA, UNSPECIFIED SNOMED Code(s): 341752986 Comment: H/H has worsened further again today-again likely dilutional and secondary to severe infection. Though she is also iron and likely B12 deficient. Continue iron and B12 supplementation. No need to transfuse at this point but need to continue to follow the H/H. (5) Elevated troponin Current Visit: Yes Status: Acute Code(s): R74.8 - ABNORMAL LEVELS OF OTHER SERUM ENZYMES SNOMED Code(s): 445678892 Comment: Likely demand ischemia. No further work up at this time. (6) COPD (chronic obstructive pulmonary disease) Current Visit: Yes Status: Acute Code(s): J44.9 - CHRONIC OBSTRUCTIVE PULMONARY DISEASE, UNSPECIFIED SNOMED Code(s): 85687051 Comment: Wheezing is much improved. Continue prednisone, dulera and prn albuterol. (7) Type II diabetes mellitus Current Visit: Yes Status: Acute Comment: Blood sugars are more elevated today. Will continue lispro sliding scale for now but if her sugars remain elevated low dose lantus may be indicated until her renal function has completely recovers and it is determined she will not need more IV contrast-she takes metformin at home. (8) DVT prophylaxis Current Visit: Yes Status: Acute Code(s): GCT2012 - SNOMED Code(s): 474594121 Comment: full dose lovenox (9) Full code status Current Visit: Yes Status: Acute Code(s): Z78.9 - OTHER SPECIFIED HEALTH STATUS SNOMED Code(s): 614422912
[2016-09-20] MEDS: Cefepime(*) 1 GM in NS 0.9% 50 ML* 50 ML IVPB SCH ×2 (09:13→22:49)
[2016-09-20] MEDS: Vancomycin(*) 1,000 MG in NS 0.9% 250 ML* 250 ML IVPB SCH ×2 (09:15→17:00)
[2016-09-20] MEDS: Gabapentin CAP(*) 300 MG PO SCH ×2 (11:59→19:40)
--- NOTE | 2016-09-20 14:56 | CONS ---
CONSULTATION REPORT: DATE OF CONSULTATION: 09/20/16 REQUESTING PHYSICIAN: Joann Bailey DO CONSULTING SERVICE: Infectious Disease. REASON FOR CONSULTATION: Left-sided lung mass. IMPRESSION: 1. Two weeks of fever, worsening cough, and then 2 days of left chest pain. CT scan showed a 5-cm mass with enlarged ipsilateral lymph nodes, small left pleural effusion. She is improving on broad- spectrum antibiotics. Taking together suggests a lung abscess. Underlying malignancy is a consider ation as is endobronchial lesion as the cause of this infection. 2. Chronic obstructive pulmonary disease. 3. Type 2 diabetes. RECOMMENDATIONS: Continue vancomycin, goal trough 10 to 15 and cefepime. I will stop the Levaquin. The sputum sample Gram stain shows gram positive cocci, 4+. We will await the cultures and hopefu lly that will help guide us antibiotic therapy, which will need to be long term care social worker and she will need fo llow up imaging as long as she is continuing to improve to ensure that there is no underlying eviden ce of malignancy. HISTORY OF PRESENT ILLNESS: This is a 61-year-old woman with COPD admitted with cough and fever. S he has had fever, chills, sweats and slightly decreased appetite for about 2 weeks. Last 2 days bef ore she came in, she developed severe left chest pain that was worse with a deep breath. She has mccabe d a cough, which was productive for about a week of some blood-tinged sputum came up. She tried her inhalers without much improvement and she came to the hospital on the 09/17/16, had the CT with res ults as above. They could not tell if there is pulmonary embolus as well given the poor study. She had a transthoracic echocardiogram, that showed ejection fraction 60% reduced right ventricular sys tolic function. No valvular lesions. She was started on Levaquin. Blood cultures taken are negativ e. She had worsening of her hypoxia and then a fever to 39 degrees with tachycardia. She was start ed on fluids. Antibiotics were broadened yesterday to vancomycin and cefepime. This morning she sa ys she feels better for the first time including decreased chest pain, the fevers have eased off for the first time. Her achiness and fatigue are improved. Her appetite is better. Has not had an in fection like this in the past. Has no known TB contacts. PAST MEDICAL HISTORY: 1. COPD. 2. Type 2 diabetes. 3. Depression. 4. Gastroesophageal reflux disease. 5. Fibromyalgia. 6. History of an ectopic . 7. Status post appendectomy. 8. Status post tubal ligation. ALLERGIES: LATEX. MEDICATIONS: 1. Tylenol. 2. Albuterol. 3. Amitriptyline. 4. Vitamin B12. 5. Cyclobenzaprine. 6. Enoxaparin injection. 7. Gabapentin. 8. Cefepime 1 gram every 12 hours. 9. Omeprazole. 10. Vancomycin 1 gram every 8 hours. 11. Fentanyl patch. 12. Prednisone 30 mg a day. SOCIAL HISTORY: She lives in [place] by herself. She has no pets or travel. She was in senior care 30 yea rs ago, never in halfway, , or homeless alf. No known TB contacts. FAMILY HISTORY: Mother with COPD and diabetes. Father had from coronary disease. REVIEW OF SYSTEMS: A full review of systems was obtained, was negative except as noted above. PHYSICAL EXAMINATION: Vital Signs: Temperature was 36, heart rate 90, respiratory 20, blood pressu re 140/70, O2 sat 95% on 2 L. General: She is awake in non- distress. HEENT: There is no conjunc tival hemorrhage. Oropharynx, there is no lesion. Neurologic: She is oriented x3. Follows all co mmands. Neck is supple without nuchal rigidity. Lymph Nodes: There is no cervical, supraclavicula r, inguinal or axillary or epitrochlear lymphadenopathy. Heart: Irregular and tachycardic without murmurs. Lungs: Bilateral exploratory wheezes without rales or rhonchi. Abdomen: Soft, nontender and nondistended. Skin: There are no rashes or splinter hemorrhages. Musculoskeletal: No spine tenderness on palpation. LABORATORY DATA: White blood cell count 15 down from 21,000 yesterday, hemoglobin 7, platelets 228. Creatinine is 1.4 down from 2 yesterday. CRP was 160 on admission. Please see impression and recommendations as outlined above, which I have discussed with Dr. Bailey. Thanks for asking me to see Mrs. Fuller in consultation. [id number]/[facility] #: [id number]
--- NOTE | 2016-09-20 15:32 | PN ---
Progress Note - Progress Note Note: Pulm consult f/u note 09/20/16 Pt seen and examined at bedside.Pt reports improvement in breathing. She was transferred back to regular floor from ICU. Having productive cough, pain is improved Active Medications Generic Name Dose Route Start Last Admin Trade Name Freq PRN Reason Stop Dose Admin Acetaminophen 650 mg 09/19/16 14:32 09/19/16 14:49 Tylenol Tab* PO 650 mg Q4H PRN Administration pain or fever Albuterol 2.5 mg 09/19/16 09:55 09/19/16 23:16 Ventolin 2.5 Mg/3 Ml Neb.Suly* INH 2.5 mg Q4H PRN Administration SOB/WHEEZING Amitriptyline HCl 10 mg 09/17/16 21:59 09/18/16 23:12 Elavil Tab* PO 10 mg BEDTIME PRN Administration PAIN Cyanocobalamin 1,000 mcg 09/19/16 14:00 09/20/16 08:07 Vitamin B12 Tab* PO 1,000 mcg DAILY MARY BETH Administration Cyclobenzaprine HCl 10 mg 09/17/16 21:59 Flexeril Tab* PO TID PRN SPASMS Dextrose 12.5 gm 09/17/16 21:10 D50w Syringe 50 Ml* IV PUSH .FOR FS < 60 - SS PRN FS < 60 Diphenhydramine HCl 50 mg 09/17/16 21:59 Benadryl Po* PO Q8H PRN ITCHING Enoxaparin Sodium 130 mg 09/19/16 23:00 09/19/16 23:00 Lovenox(*) SUBCUT 130 mg Q24HR@2300 MARY BETH Administration Fentanyl 25 mcg 09/18/16 09:00 09/18/16 09:12 Duragesic Patch 25 Mcg/Hr* TRANSDERM 25 mcg Q72H MARY BETH Administration Ferrous Sulfate 325 mg 09/19/16 21:00 09/20/16 08:07 Ferrous Sulfate Tab* PO 325 mg BID MARY BETH Administration Gabapentin 600 mg 09/18/16 12:00 09/20/16 11:59 Neurontin Cap(*) PO 600 mg 1200,2000 MARY BETH Administration Hydromorphone HCl 1 mg 09/18/16 12:39 09/19/16 11:52 Dilaudid Iv* IV SLOW PU 1 mg Q3H PRN Administration PAIN Sodium Chloride 1,000 mls @ 125 mls/hr 09/17/16 22:15 09/20/16 05:37 Ns 0.9% 1000 Ml* IV 125 mls/hr PER RATE MARY BETH Administration Cefepime HCl 1 gm/ Sodium 50 mls @ 100 mls/hr 09/19/16 10:00 09/20/16 09:13 Chloride IVPB 100 mls/hr Q12H MARY BETH Administration Vancomycin HCl 1,000 mg/ 250 mls @ 166.667 mls/hr 09/20/16 09:00 09/20/16 09: 15 Sodium Chloride IVPB 166.667 mls/hr Q8H MARY BETH Administration Insulin Human Lispro 0 units 09/18/16 07:30 09/20/16 11:58 Humalog* SUBCUT 3 unit AC MARY BETH Administration Protocol Mometasone Furoate/Formoterol Fumar 2 puff 09/18/16 09:00 09/20/16 07:36 Dulera 200/5 Mdi* INH 2 puff BID MARY BETH Administration Omeprazole 20 mg 09/19/16 05:00 09/20/16 05:25 Prilosec Cap* PO 20 mg DAILY@0600 MARY BETH Administration Pharmacy Consult 1 note 09/19/16 10:49 Vancomycin Per Pharmacy* FOLLOW UP . PRN PER PROTOCOL Pharmacy Profile Note 1 note 09/18/16 19:00 09/20/16 07:35 Fentanyl Patch Check Q Shift N/A 1 note 0700,1900 MARY BETH Administration Pharmacy Profile Note 1 note 09/21/16 08:30 Vancomycin Trough Check FOLLOW UP 09/21/16 08:31 0830 ONE Prednisone 30 mg 09/19/16 18:00 09/20/16 08:07 Deltasone Tab* PO 30 mg DAILY WITH MEAL MARY BETH Administration Sertraline HCl 100 mg 09/18/16 09:00 09/20/16 08:07 Zoloft* PO 100 mg DAILY MARY BETH Administration Vital Signs Temp Pulse Resp BP Pulse Ox 97.6 F 91 18 139/79 95 09/20/16 12:08 09/20/16 12:08 09/20/16 13:59 09/20/16 12:08 09/20/16 12:08 O/E: Morbidly obese female in NAD HEENT: PERRLA, No JVD Resp: Wheeze present, not audible wheeze today, decreased air entry at bases CVS: S1, S2+ Abd: Obese, BS+ Ext: No edema Skin: No rash, no bruise Neuro: NO focal defecits Laboratory Results - last 24 hr 09/19/16 09/19/16 09/19/16 17:05 20:10 20:10 WBC RBC Hgb Hct MCV MCH MCHC RDW Plt Count MPV Neut % (Auto) Lymph % (Auto) [place] % (Auto) Eos % (Auto) Baso % (Auto) Absolute Neuts (auto) Absolute Lymphs (auto) Absolute Monos (auto) Absolute Eos (auto) Absolute Basos (auto) Absolute Nucleated RBC Nucleated RBC % Sodium Potassium Chloride Carbon Dioxide Anion Gap BUN Creatinine Est GFR ( Amer) Est GFR (Non-Af Amer) BUN/Creatinine Ratio Glucose POC Glucose (mg/dL) 120 H Calcium Total Bilirubin AST ALT Alkaline Phosphatase Total Protein Albumin Globulin Albumin/Globulin Ratio Urine Color Urine Appearance Urine pH Ur Specific [place] 1.024 Urine Protein Urine Ketones Urine Blood Urine Nitrate Urine Bilirubin Urine Urobilinogen Ur Leukocyte Esterase U Random Total Protein 67 Ur Random Sodium < 18 Urine Glucose Random Vancomycin 09/19/16 09/20/16 09/20/16 20:10 04:35 04:35 WBC 15.3 H RBC 3.45 L Hgb 7.7 L Hct 25 L MCV 72 L MCH 22 L MCHC 31 RDW 19 H Plt Count 328 MPV 7 L Neut % (Auto) 92.2 H Lymph % (Auto) 5.1 L [place] % (Auto) 2.4 Eos % (Auto) 0.1 Baso % (Auto) 0.2 Absolute Neuts (auto) 14.1 H Absolute Lymphs (auto) 0.8 L Absolute Monos (auto) 0.4 Absolute Eos (auto) 0 Absolute Basos (auto) 0 Absolute Nucleated RBC 0.01 Nucleated RBC % 0.1 Sodium 129 L Potassium 4.3 Chloride 100 L Carbon Dioxide 21 L Anion Gap 8 BUN 22 Creatinine 1.40 H Est GFR ( Amer) 49.5 Est GFR (Non-Af Amer) 38.5 BUN/Creatinine Ratio 15.7 Glucose 187 H POC Glucose (mg/dL) Calcium 8.5 L Total Bilirubin 0.30 AST 24 ALT 11 Alkaline Phosphatase 105 H Total Protein 6.6 Albumin 2.9 L Globulin 3.7 Albumin/Globulin Ratio 0.8 L Urine Color Yellow Urine Appearance Cloudy Urine pH 5.0 Ur Specific [place] 1.025 Urine Protein Negative Urine Ketones Negative Urine Blood Negative Urine Nitrate Negative Urine Bilirubin Negative Urine Urobilinogen Negative Ur Leukocyte Esterase Negative U Random Total Protein Ur Random Sodium Urine Glucose Negative Random Vancomycin 6.5 09/20/16 09/20/16 07:58 11:37 WBC RBC Hgb Hct MCV MCH MCHC RDW Plt Count MPV Neut % (Auto) Lymph % (Auto) [place] % (Auto) Eos % (Auto) Baso % (Auto) Absolute Neuts (auto) Absolute Lymphs (auto) Absolute Monos (auto) Absolute Eos (auto) Absolute Basos (auto) Absolute Nucleated RBC Nucleated RBC % Sodium Potassium Chloride Carbon Dioxide Anion Gap BUN Creatinine Est GFR ( Amer) Est GFR (Non-Af Amer) BUN/Creatinine Ratio Glucose POC Glucose (mg/dL) 188 H 193 H Calcium Total Bilirubin AST ALT Alkaline Phosphatase Total Protein Albumin Globulin Albumin/Globulin Ratio Urine Color Urine Appearance Urine pH Ur Specific [place] Urine Protein Urine Ketones Urine Blood Urine Nitrate Urine Bilirubin Urine Urobilinogen Ur Leukocyte Esterase U Random Total Protein Ur Random Sodium Urine Glucose Random Vancomycin CTA chest: Non-diagnostic for PE, Wedge shaped LLL opacity noted along with prominant hilar node. Atelectasis of LLL basal segment I/R; Pt is 61 y o morbidly obese female with h/o COPD a/w fever, tachycardia, leucocytosis being treated for CAP with evidence of wedge shaped infarct in LLL , CTA non-diagnostic, underwent rpt CTA today which didnot confirm PE due to delayed contrast in pulm arteries. Pt with hypotension, tachycardia and ARF transferred to ICU for close monitoring. Hypotension resolved with fluid resuscitation Pt received fluid boluses and is hemodynamically stable currently O2 requirements have improved, she is on RA today Still has wheeze , much improved, c/w prednisone Underlying etilogy still unclear- infectious versus inflammatory versus neoplastic ? Wegners given pulmonary lesion and renal failure, ALBER, ANCA pending Contrast induced nephropathy also in differential for RF She is much improved today, ? after broadening antibiotic coverage Will revisit need for biopsy Might opt for rpt CT if she continues to improve on abx On therapeutic dose of Lovenox D/w Dr Bailey
[2016-09-20] MEDS ORDERED: Levofloxacin 750 MG IVPREMIX(* 750 MG/150 ML BAG IVPB SCH (21:00)
[2016-09-20] MEDS: Enoxaparin(*) 150 MG/ML 1 ML SYRINGE SUBCUT SCH (22:57)
[2016-09-21] MEDS ORDERED: NS 0.9% 250 ML* 250 ML ONE ×2 (00:56→07:55)
[2016-09-21] MEDS: Vancomycin(*) 1,000 MG in NS 0.9% 250 ML* 250 ML IVPB SCH ×3 (00:58→16:43)
[2016-09-21 05:38] LABS: Hematocrit 24 % (35-47); Hemoglobin 7.3 g/dl (12.0-16.0); Mean Corpuscular HGB Conc 31 g/dl (31-36); Mean Corpuscular Hemoglobin 22 pg (27-31); Mean Corpuscular Volume 72 fL (80-97); Mean Platelet Volume 7 um3 (7.4-10.4); Red Blood Count 3.28 10^6/ul (4.0-5.4); Red Cell Distribution Width 19 % (10.5-15); White Blood Count 13.7 10^3/ul (3.5-10.8)
[2016-09-21 05:41] LABS: Comments Flag Yes
[2016-09-21 05:57] LABS: BUN/Creatinine Ratio 22.1 (8-20); Calcium 8.7 mg/dL (8.6-10.3); EGFR African American 86.9 (>60); EGFR Non-African American 67.5 (>60); Potassium 3.9 mmol/L (3.5-5.0)
[2016-09-21] MEDS: Omeprazole CAP* 20 MG PO SCH (06:18)
[2016-09-21] MEDS: fentaNYL Patch Check Q Shift 1 NOTE SCH ×2 (07:11→19:08)
[2016-09-21] MEDS: Insulin LISPRO* 1 UNITS UNIT SUBCUT SCH ×3 (07:38→16:45)
[2016-09-21] MEDS: Mometasone/Formoter 200/5 MDI INH SCH ×2 (07:46→20:22)
[2016-09-21] MEDS: fentaNYL PATCH 25 MCG/HR TRANSDERM SCH (08:02)
[2016-09-21] MEDS: predniSONE TAB* 10 MG PO SCH (08:04)
[2016-09-21] MEDS: Cyanocobalamin TAB* 500 MCG PO SCH (08:04)
[2016-09-21] MEDS: Ferrous Sulfate TAB* 325 MG PO SCH ×2 (08:04→20:56)
[2016-09-21] MEDS: Sertraline* 100 MG TAB PO SCH (08:04)
[2016-09-21] MEDS: NS 0.9% 1000 ML* 1,000 ML IV SCH (08:14)
[2016-09-21] MEDS ORDERED: Vancomycin Trough Check NOTE FOLLOW UP ONE (08:30)
[2016-09-21] MEDS: Enoxaparin(*) 150 MG/ML 1 ML SYRINGE SUBCUT SCH ×2 (09:47→21:00)
[2016-09-21] MEDS: Cefepime(*) 1 GM in NS 0.9% 50 ML* 50 ML IVPB SCH ×2 (11:05→20:59)
[2016-09-21] MEDS: Gabapentin CAP(*) 300 MG PO SCH ×2 (11:37→20:55)
[2016-09-21] MEDS ORDERED: HYDROmorphone TAB* 2 MG PO PRN (13:11)
[2016-09-21] MEDS ORDERED: Lisinopril TAB* 10 MG PO ONE (13:13)
--- NOTE | 2016-09-21 13:34 | PN ---
Subjective Date of Service: 09/21/16 Interval History: Cough continues but improved Pain well controlled. Not using dilaudid IV over last 2 days Feels improved since admission but not back to baseline Just returned to bed from bathroom and feels SOB +BMs but not loose Objective Active Medications: Acetaminophen (Tylenol Tab*) 650 mg PO Q4H PRN PRN Reason: pain or fever Last Admin: 09/19/16 14:49 Dose: 650 mg Albuterol (Ventolin 2.5 Mg/3 Ml Neb.Suly*) 2.5 mg INH Q4H PRN PRN Reason: SOB/WHEEZING Last Admin: 09/19/16 23:16 Dose: 2.5 mg Cyanocobalamin (Vitamin B12 Tab*) 1,000 mcg PO DAILY [facility] Last Admin: 09/21/16 08:04 Dose: 1,000 mcg Cyclobenzaprine HCl (Flexeril Tab*) 10 mg PO TID PRN PRN Reason: SPASMS Dextrose (D50w Syringe 50 Ml*) 12.5 gm IV PUSH .FOR FS < 60 - SS PRN PRN Reason: FS < 60 Enoxaparin Sodium (Lovenox(*)) 130 mg SUBCUT Q12HR [facility] Last Admin: 09/21/16 09:47 Dose: 130 mg Fentanyl (Duragesic Patch 25 Mcg/Hr*) 25 mcg TRANSDERM Q72H [facility] Last Admin: 09/21/16 08:02 Dose: 25 mcg Ferrous Sulfate (Ferrous Sulfate Tab*) 325 mg PO BID [facility] Last Admin: 09/21/16 08:04 Dose: 325 mg Furosemide (Lasix Tab*) 20 mg PO DAILY [facility] Gabapentin (Neurontin Cap(*)) 600 mg PO 1200,2000 [facility] Last Admin: 09/21/16 11:37 Dose: 600 mg Hydromorphone HCl (Dilaudid Tab*) 2 mg PO Q4H PRN PRN Reason: PAIN Cefepime HCl 1 gm/ Sodium (Chloride) 50 mls @ 100 mls/hr IVPB Q12H [facility] Last Admin: 09/21/16 11:05 Dose: 100 mls/hr Vancomycin HCl 1,000 mg/ (Sodium Chloride) 250 mls @ 166.667 mls/hr IVPB Q8H [facility] Last Admin: 09/21/16 08:14 Dose: 166.667 mls/hr Insulin Human Lispro (Humalog*) 0 units SUBCUT AC [facility] PRN Reason: Protocol Last Admin: 09/21/16 11:35 Dose: 3 unit Lisinopril (Prinivil Tab*) 10 mg PO DAILY [facility] Mometasone Furoate/Formoterol Fumar (Dulera 200/5 Mdi*) 2 puff INH BID [facility] Last Admin: 09/21/16 07:46 Dose: 2 puff Omeprazole (Prilosec Cap*) 20 mg PO DAILY@0600 [facility] Last Admin: 09/21/16 06:18 Dose: 20 mg Pharmacy Consult (Vancomycin Per Pharmacy*) 1 note FOLLOW UP . PRN PRN Reason: PER PROTOCOL Pharmacy Profile Note (Fentanyl Patch Check Q Shift) 1 note N/A 0700,1900 [facility] Last Admin: 09/21/16 07:11 Dose: 1 note Prednisone (Deltasone Tab*) 30 mg PO DAILY WITH MEAL [facility] Last Admin: 09/21/16 08:04 Dose: 30 mg Sertraline HCl (Zoloft*) 100 mg PO DAILY [facility] Last Admin: 09/21/16 08:04 Dose: 100 mg Tiotropium [place] (Spiriva Cap.Inh*) 1 cap INH DAILY [facility] Vital Signs 09/20/16 09/20/16 09/20/16 13:59 15:17 19:22 Temperature 97.7 F 98.1 F Pulse Rate 84 93 Respiratory 18 20 20 Rate Blood Pressure 143/78 130/59 (mmHg) O2 Sat by Pulse 92 96 Oximetry 09/20/16 09/20/16 09/20/16 19:40 20:00 20:42 Temperature Pulse Rate 91 Respiratory 20 16 Rate Blood Pressure (mmHg) O2 Sat by Pulse 97 97 Oximetry 09/20/16 09/20/16 09/21/16 21:40 23:58 03:37 Temperature 96.7 F 97.5 F Pulse Rate 90 89 Respiratory 19 16 18 Rate Blood Pressure 138/66 120/59 (mmHg) O2 Sat by Pulse 90 94 Oximetry 09/21/16 09/21/16 09/21/16 07:21 07:22 08:02 Temperature 97.4 F Pulse Rate 88 Respiratory 18 18 18 Rate Blood Pressure 142/69 (mmHg) O2 Sat by Pulse 95 Oximetry 09/21/16 09/21/16 09/21/16 08:28 11:37 11:51 Temperature 98.2 F Pulse Rate 88 92 Respiratory 16 20 16 Rate Blood Pressure 160/91 (mmHg) O2 Sat by Pulse 93 95 Oximetry 09/21/16 12:38 Temperature Pulse Rate Respiratory Rate Blood Pressure 152/81 (mmHg) O2 Sat by Pulse Oximetry Oxygen Devices in Use Now: None - room air Appearance: obese, NAD Eyes: No Scleral Icterus, PERRLA Ears/Nose/Mouth/Throat: Clear Oropharnyx, Mucous Membranes Moist Neck: NL Appearance and Movements; NL JVP, Trachea Midline Respiratory: Symmetrical Chest Expansion and Respiratory Effort, - - +wheeze Cardiovascular: NL Sounds; No Murmurs; No JVD, RRR Abdominal: NL Sounds; No Tenderness; No Distention, No Hepatosplenomegaly Lymphatic: No Cervical Adenopathy Extremities: - - 1+ LE edema Skin: No Rash or Ulcers, No Nodules or Sclerosis Neurological: Alert and Oriented x 3 Result Diagrams: 09/21/16 05:10 09/21/16 05:10 Additional Lab and Data: Lab Results 09/17/16 09/17/16 09/17/16 Range/Units 18:33 18:33 18:33 WBC 15.6 H (3.5-10.8) 10^3/ul RBC 4.43 (4.0-5.4) 10^6/ul Hgb 10.0 L (12.0-16.0) g/dl Hct 32 L (35-47) % MCV 72 L (80-97) fL MCH 23 L (27-31) pg MCHC 31 (31-36) g/dl RDW 19 H (10.5-15) % Plt Count 367 (150-450) 10^3/ul MPV 7 L (7.4-10.4) um3 Neut % (Auto) 83.6 H (38-83) % Lymph % (Auto) 9.2 L (25-47) % [place] % (Auto) 6.1 (1-9) % Eos % (Auto) 0.6 (0-6) % Baso % (Auto) 0.5 (0-2) % Absolute Neuts (auto) 13.0 H (1.5-7.7) 10^3/ul Absolute Lymphs (auto) 1.4 (1.0-4.8) 10^3/ul Absolute Monos (auto) 0.9 H (0-0.8) 10^3/ul Absolute Eos (auto) 0.1 (0-0.6) 10^3/ul Absolute Basos (auto) 0.1 (0-0.2) 10^3/ul Absolute Nucleated RBC 0.01 10^3/ul Nucleated RBC % 0 Sodium 132 L (133-145) mmol/L Potassium 3.9 (3.5-5.0) mmol/L Chloride 98 L (101-111) mmol/L Carbon Dioxide 26 (22-32) mmol/L Anion Gap 8 (2-11) mmol/L BUN 8 (6-24) mg/dL Creatinine 0.98 H (0.51-0.95) mg/dL Est GFR ( Amer) 74.7 (>60) Est GFR (Non-Af Amer) 58.1 (>60) BUN/Creatinine Ratio 8.2 (8-20) Glucose 153 H (70-100) mg/dL Lactic Acid 2.0 (0.5-2.0) mmol/L Calcium 9.1 (8.6-10.3) mg/dL Iron 10 L (50-212) ug/dL TIBC 328 (250-450) mcg/dL % Saturation 3 L (15-55) % Unsat Iron Binding 318 ug/dL Ferritin Pending Total Bilirubin 0.50 (0.2-1.0) mg/dL AST 11 L (13-39) U/L ALT 10 (7-52) U/L Alkaline Phosphatase 113 H (34-104) U/L Troponin I 0.07 H* (<0.04) ng/mL C-Reactive Protein 161.65 H (< 5.00) mg/L B-Natriuretic Peptide ( - 100) pg/mL Total Protein 7.6 (6.4-8.9) g/dL Albumin 3.6 (3.2-5.2) g/dL Globulin 4.0 (2-4) g/dL Albumin/Globulin Ratio 0.9 L (1-3) Vitamin B12 Pending Folate Pending 09/17/16 Range/Units 18:33 WBC (3.5-10.8) 10^3/ul RBC (4.0-5.4) 10^6/ul Hgb (12.0-16.0) g/dl Hct (35-47) % MCV (80-97) fL MCH (27-31) pg MCHC (31-36) g/dl RDW (10.5-15) % Plt Count (150-450) 10^3/ul MPV (7.4-10.4) um3 Neut % (Auto) (38-83) % Lymph % (Auto) (25-47) % [place] % (Auto) (1-9) % Eos % (Auto) (0-6) % Baso % (Auto) (0-2) % Absolute Neuts (auto) (1.5-7.7) 10^3/ul Absolute Lymphs (auto) (1.0-4.8) 10^3/ul Absolute Monos (auto) (0-0.8) 10^3/ul Absolute Eos (auto) (0-0.6) 10^3/ul Absolute Basos (auto) (0-0.2) 10^3/ul Absolute Nucleated RBC 10^3/ul Nucleated RBC % Sodium (133-145) mmol/L Potassium (3.5-5.0) mmol/L Chloride (101-111) mmol/L Carbon Dioxide (22-32) mmol/L Anion Gap (2-11) mmol/L BUN (6-24) mg/dL Creatinine (0.51-0.95) mg/dL Est GFR ( Amer) (>60) Est GFR (Non-Af Amer) (>60) BUN/Creatinine Ratio (8-20) Glucose (70-100) mg/dL Lactic Acid (0.5-2.0) mmol/L Calcium (8.6-10.3) mg/dL Iron (50-212) ug/dL TIBC (250-450) mcg/dL % Saturation (15-55) % Unsat Iron Binding ug/dL Ferritin Total Bilirubin (0.2-1.0) mg/dL AST (13-39) U/L ALT (7-52) U/L Alkaline Phosphatase (34-104) U/L Troponin I (<0.04) ng/mL C-Reactive Protein (< 5.00) mg/L B-Natriuretic Peptide 73 ( - 100) pg/mL Total Protein (6.4-8.9) g/dL Albumin (3.2-5.2) g/dL Globulin (2-4) g/dL Albumin/Globulin Ratio (1-3) Vitamin B12 Folate Microbiology and Other Data: Microbiology 09/18/16 05:16 Aerobic Blood Culture - Preliminary Blood Venous No Growth Day 1 Anaerobic Blood Culture - Preliminary No Growth Day 1 Assess/Plan/Problems-Billing Ms Fuller is a 61 yo F who has a h/o COPD, fibromyalgia, type II DM and depression who presented to the ER with c/o 2 weeks of intermittent fevers and the sudden onset of severe L sided chest pain worse with deep breath and movement - Patient Problems (1) 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 Have not been able to rule out PE on 2 CTAs of chest. No hemotypsis. -Fevers and improvement lend evidence towards consolidation/PNA vs abscess. Sepsis now resolved likely in setting of lung infection. Continue Vancomycin and Cefepime. Stop crystalloids. -Neoplasm on differential although improving with abx. If failure to resolve will need biopsy (2) Sepsis Comment: Present on admission now resolved 2/2 suspected PNA with gram positive bacteria. (3) ARF (acute renal failure) Comment: Resolved with normal saline Suspect developed in setting of sepsis, IV contrast dye and perhaps being in a pre-renal state. Safe to restart lasix tomorrow (4) Chest pain Priority: High Comment: Much improved. Pain likely secondary to process in LLL. Continue fentanyl patch change IV to PO dilaudid (5) Anemia Comment: H/H has worsened further again today-again likely dilutional and secondary to severe infection. Though she is also iron and likely B12 deficient. Continue iron and B12 supplementation. No need to transfuse unless < 7.0 Trend (6) Elevated troponin Comment: Likely demand ischemia. No further work up at this time. (7) COPD (chronic obstructive pulmonary disease) SNOMED Code(s): 05772269 Comment: Continue prednisone, dulera and prn albuterol. add spiriva (8) Type II diabetes mellitus Comment: Better controlled today Off metformin On steroids trend (9) Hypertension Comment: Restart lisinopril today 09/21 Add lasix tomorrow 09/22 (10) DVT prophylaxis Comment: full dose lovenox
[2016-09-21] MEDS ORDERED: Spiriva Inhaler DEVICE* 1 EACH DEVICE INH ONE (14:00)
[2016-09-21] MEDS ORDERED: Mometasone/Formoter 200/5 MDI INH SCH (21:00)
[2016-09-21] MEDS ORDERED: Mometasone/Formoter 100/5 MDI INH SCH (21:00)
[2016-09-22] MEDS: Vancomycin(*) 1,000 MG in NS 0.9% 250 ML* 250 ML IVPB SCH ×3 (00:46→16:24)
[2016-09-22] MEDS: hydrALAZINE IV* 20 MG/ML VIAL IV PRN ×3 (04:03→12:35)
[2016-09-22 05:56] LABS: Hematocrit 27 % (35-47); Hemoglobin 8.5 g/dl (12.0-16.0); Mean Corpuscular HGB Conc 32 g/dl (31-36); Mean Corpuscular Hemoglobin 23 pg (27-31); Mean Platelet Volume 7 um3 (7.4-10.4); Red Blood Count 3.76 10^6/ul (4.0-5.4); Red Cell Distribution Width 20 % (10.5-15); White Blood Count 15.3 10^3/ul (3.5-10.8)
[2016-09-22 05:58] LABS: Comments Flag Yes; Mean Corpuscular Volume 71 fL (80-97)
[2016-09-22 05:59] LABS: Add Diff/Slide Review? Slide Review Added
[2016-09-22] MEDS: Omeprazole CAP* 20 MG PO SCH (06:09)
[2016-09-22 06:10] LABS: Albumin 3.1 g/dL (3.2-5.2); BUN/Creatinine Ratio 16.3 (8-20); C Reactive Protein 81.33 mg/L (< 5.00); Direct Bilirubin 0.1 mg/dL (0.03-0.18); EGFR African American 86.9 (>60); EGFR Non-African American 67.5 (>60); Globulin 3.5 g/dL (2-4); Indirect Bilirubin 0.2 mg/dL (0.3-1.0); Potassium 3.5 mmol/L (3.5-5.0); Total Bilirubin 0.3 mg/dL (0.2-1.0); Total Protein 6.6 g/dL (6.4-8.9)
[2016-09-22 06:38] LABS: Eosinophils % 1 % (0-6); Immature Granulocytes 8 % (0-9); Metamyelocytes % 1 % (0-2); Myelocytes % 3 % (0-1); Neutrophil % 69 % (38-83)
[2016-09-22 06:39] LABS: RBC Morphology Normal (Normal)
[2016-09-22] MEDS: fentaNYL Patch Check Q Shift 1 NOTE SCH ×2 (07:15→18:51)
[2016-09-22] MEDS: Insulin LISPRO* 1 UNITS UNIT SUBCUT SCH ×3 (07:47→16:47)
[2016-09-22] MEDS: Mometasone/Formoter 200/5 MDI INH SCH ×2 (07:54→19:51)
[2016-09-22] MEDS: Tiotropium CAP.INH* CAP.INH/18 MCG INH SCH (07:54)
[2016-09-22] MEDS: predniSONE TAB* 10 MG PO SCH (08:30)
[2016-09-22] MEDS: Furosemide TAB* 20 MG PO SCH (08:31)
[2016-09-22] MEDS: Cyanocobalamin TAB* 500 MCG PO SCH (08:31)
[2016-09-22] MEDS: Sertraline* 100 MG TAB PO SCH (08:32)
[2016-09-22] MEDS: Ferrous Sulfate TAB* 325 MG PO SCH ×2 (08:32→20:54)
[2016-09-22] MEDS: Lisinopril TAB* 10 MG PO SCH (08:33)
[2016-09-22] MEDS: Enoxaparin(*) 150 MG/ML 1 ML SYRINGE SUBCUT SCH (08:36)
[2016-09-22] MEDS ORDERED: Spiriva Inhaler DEVICE* 1 EACH DEVICE INH ONE (09:00)
--- NOTE | 2016-09-22 09:44 | PN ---
Subjective Date of Service: 09/22/16 Interval History: Minimal cough. Small amount of sputum production. [place] SOB this AM with complete resolution with nebulizer. +pain with coughing. Objective Active Medications: Acetaminophen (Tylenol Tab*) 650 mg PO Q4H PRN PRN Reason: pain or fever Last Admin: 09/19/16 14:49 Dose: 650 mg Albuterol (Ventolin 2.5 Mg/3 Ml Neb.Suly*) 2.5 mg INH Q4H PRN PRN Reason: SOB/WHEEZING Last Admin: 09/19/16 23:16 Dose: 2.5 mg Cyanocobalamin (Vitamin B12 Tab*) 1,000 mcg PO DAILY [facility] Last Admin: 09/22/16 08:31 Dose: 1,000 mcg Cyclobenzaprine HCl (Flexeril Tab*) 10 mg PO TID PRN PRN Reason: SPASMS Dextrose (D50w Syringe 50 Ml*) 12.5 gm IV PUSH .FOR FS < 60 - SS PRN PRN Reason: FS < 60 Enoxaparin Sodium (Lovenox(*)) 130 mg SUBCUT Q12HR [facility] Last Admin: 09/22/16 08:36 Dose: 130 mg Fentanyl (Duragesic Patch 25 Mcg/Hr*) 25 mcg TRANSDERM Q72H [facility] Last Admin: 09/21/16 08:02 Dose: 25 mcg Ferrous Sulfate (Ferrous Sulfate Tab*) 325 mg PO BID [facility] Last Admin: 09/22/16 08:32 Dose: 325 mg Furosemide (Lasix Tab*) 20 mg PO DAILY [facility] Last Admin: 09/22/16 08:31 Dose: 20 mg Gabapentin (Neurontin Cap(*)) 600 mg PO 1200,2000 [facility] Last Admin: 09/21/16 20:55 Dose: 600 mg Hydralazine HCl (Apresoline Iv*) 10 mg IV Q4H PRN PRN Reason: Systolic >170 Last Admin: 09/22/16 04:03 Dose: 10 mg Hydromorphone HCl (Dilaudid Tab*) 2 mg PO Q4H PRN PRN Reason: PAIN Last Admin: 09/22/16 08:34 Dose: 2 mg Cefepime HCl 1 gm/ Sodium (Chloride) 50 mls @ 100 mls/hr IVPB Q12H [facility] Last Admin: 09/21/16 20:59 Dose: 100 mls/hr Vancomycin HCl 1,000 mg/ (Sodium Chloride) 250 mls @ 166.667 mls/hr IVPB Q8H [facility] Last Admin: 09/22/16 08:44 Dose: 166.667 mls/hr Insulin Human Lispro (Humalog*) 0 units SUBCUT AC [facility] PRN Reason: Protocol Last Admin: 09/22/16 07:47 Dose: Not Given Lisinopril (Prinivil Tab*) 10 mg PO DAILY [facility] Last Admin: 09/22/16 08:33 Dose: 10 mg Mometasone Furoate/Formoterol Fumar (Dulera 200/5 Mdi*) 2 puff INH BID [facility] Last Admin: 09/22/16 07:54 Dose: 2 puff Omeprazole (Prilosec Cap*) 20 mg PO DAILY@0600 [facility] Last Admin: 09/22/16 06:09 Dose: 20 mg Pharmacy Consult (Vancomycin Per Pharmacy*) 1 note FOLLOW UP . PRN PRN Reason: PER PROTOCOL Pharmacy Profile Note (Fentanyl Patch Check Q Shift) 1 note N/A 0700,1900 [facility] Last Admin: 09/22/16 07:15 Dose: 1 note Prednisone (Deltasone Tab*) 30 mg PO DAILY WITH MEAL [facility] Last Admin: 09/22/16 08:30 Dose: 30 mg Sertraline HCl (Zoloft*) 100 mg PO DAILY [facility] Last Admin: 09/22/16 08:32 Dose: 100 mg Tiotropium [place] (Spiriva Cap.Inh*) 1 cap INH DAILY [facility] Last Admin: 09/22/16 07:54 Dose: 1 cap Vital Signs 09/21/16 09/21/16 09/21/16 11:37 11:51 12:38 Temperature 98.2 F Pulse Rate 92 Respiratory 20 16 Rate Blood Pressure 160/91 152/81 (mmHg) O2 Sat by Pulse 95 Oximetry 09/21/16 09/21/16 09/21/16 13:37 15:23 19:16 Temperature 98.3 F 98.1 F Pulse Rate 88 91 Respiratory 18 18 19 Rate Blood Pressure 149/75 154/71 (mmHg) O2 Sat by Pulse 94 96 Oximetry 09/21/16 09/21/16 09/21/16 19:18 20:55 22:55 Temperature Pulse Rate Respiratory 20 18 20 Rate Blood Pressure (mmHg) O2 Sat by Pulse Oximetry 04/15/17 04/16/17 04/16/17 23:38 03:52 06:13 Temperature 97.8 F 97.6 F 98.2 F Pulse Rate 84 87 92 Respiratory 20 16 16 Rate Blood Pressure 149/78 180/94 159/83 (mmHg) O2 Sat by Pulse 96 95 97 Oximetry 09/22/16 09/22/16 07:55 08:34 Temperature Pulse Rate 90 Respiratory 15 16 Rate Blood Pressure (mmHg) O2 Sat by Pulse 94 Oximetry Oxygen Devices in Use Now: None - room air Appearance: sitting on edge of bed, conversant, NAD Eyes: No Scleral Icterus, PERRLA Ears/Nose/Mouth/Throat: NL Teeth, Lips, Gums, Clear Oropharnyx, Mucous Membranes Moist Neck: NL Appearance and Movements; NL JVP, Trachea Midline Respiratory: Symmetrical Chest Expansion and Respiratory Effort, Clear to Auscultation Cardiovascular: RRR, - - 2/6 HORACE Abdominal: NL Sounds; No Tenderness; No Distention, No Hepatosplenomegaly Lymphatic: No Cervical Adenopathy Extremities: - - 1+ LE edema Skin: No Rash or Ulcers Neurological: Alert and Oriented x 3 Result Diagrams: 09/22/16 05:24 09/22/16 05:24 Additional Lab and Data: Lab Results 09/17/16 09/17/16 09/17/16 Range/Units 18:33 18:33 18:33 WBC 15.6 H (3.5-10.8) 10^3/ul RBC 4.43 (4.0-5.4) 10^6/ul Hgb 10.0 L (12.0-16.0) g/dl Hct 32 L (35-47) % MCV 72 L (80-97) fL MCH 23 L (27-31) pg MCHC 31 (31-36) g/dl RDW 19 H (10.5-15) % Plt Count 367 (150-450) 10^3/ul MPV 7 L (7.4-10.4) um3 Neut % (Auto) 83.6 H (38-83) % Lymph % (Auto) 9.2 L (25-47) % [place] % (Auto) 6.1 (1-9) % Eos % (Auto) 0.6 (0-6) % Baso % (Auto) 0.5 (0-2) % Absolute Neuts (auto) 13.0 H (1.5-7.7) 10^3/ul Absolute Lymphs (auto) 1.4 (1.0-4.8) 10^3/ul Absolute Monos (auto) 0.9 H (0-0.8) 10^3/ul Absolute Eos (auto) 0.1 (0-0.6) 10^3/ul Absolute Basos (auto) 0.1 (0-0.2) 10^3/ul Absolute Nucleated RBC 0.01 10^3/ul Nucleated RBC % 0 Sodium 132 L (133-145) mmol/L Potassium 3.9 (3.5-5.0) mmol/L Chloride 98 L (101-111) mmol/L Carbon Dioxide 26 (22-32) mmol/L Anion Gap 8 (2-11) mmol/L BUN 8 (6-24) mg/dL Creatinine 0.98 H (0.51-0.95) mg/dL Est GFR ( Amer) 74.7 (>60) Est GFR (Non-Af Amer) 58.1 (>60) BUN/Creatinine Ratio 8.2 (8-20) Glucose 153 H (70-100) mg/dL Lactic Acid 2.0 (0.5-2.0) mmol/L Calcium 9.1 (8.6-10.3) mg/dL Iron 10 L (50-212) ug/dL TIBC 328 (250-450) mcg/dL % Saturation 3 L (15-55) % Unsat Iron Binding 318 ug/dL Ferritin Pending Total Bilirubin 0.50 (0.2-1.0) mg/dL AST 11 L (13-39) U/L ALT 10 (7-52) U/L Alkaline Phosphatase 113 H (34-104) U/L Troponin I 0.07 H* (<0.04) ng/mL C-Reactive Protein 161.65 H (< 5.00) mg/L B-Natriuretic Peptide ( - 100) pg/mL Total Protein 7.6 (6.4-8.9) g/dL Albumin 3.6 (3.2-5.2) g/dL Globulin 4.0 (2-4) g/dL Albumin/Globulin Ratio 0.9 L (1-3) Vitamin B12 Pending Folate Pending 09/17/16 Range/Units 18:33 WBC (3.5-10.8) 10^3/ul RBC (4.0-5.4) 10^6/ul Hgb (12.0-16.0) g/dl Hct (35-47) % MCV (80-97) fL MCH (27-31) pg MCHC (31-36) g/dl RDW (10.5-15) % Plt Count (150-450) 10^3/ul MPV (7.4-10.4) um3 Neut % (Auto) (38-83) % Lymph % (Auto) (25-47) % [place] % (Auto) (1-9) % Eos % (Auto) (0-6) % Baso % (Auto) (0-2) % Absolute Neuts (auto) (1.5-7.7) 10^3/ul Absolute Lymphs (auto) (1.0-4.8) 10^3/ul Absolute Monos (auto) (0-0.8) 10^3/ul Absolute Eos (auto) (0-0.6) 10^3/ul Absolute Basos (auto) (0-0.2) 10^3/ul Absolute Nucleated RBC 10^3/ul Nucleated RBC % Sodium (133-145) mmol/L Potassium (3.5-5.0) mmol/L Chloride (101-111) mmol/L Carbon Dioxide (22-32) mmol/L Anion Gap (2-11) mmol/L BUN (6-24) mg/dL Creatinine (0.51-0.95) mg/dL Est GFR ( Amer) (>60) Est GFR (Non-Af Amer) (>60) BUN/Creatinine Ratio (8-20) Glucose (70-100) mg/dL Lactic Acid (0.5-2.0) mmol/L Calcium (8.6-10.3) mg/dL Iron (50-212) ug/dL TIBC (250-450) mcg/dL % Saturation (15-55) % Unsat Iron Binding ug/dL Ferritin Total Bilirubin (0.2-1.0) mg/dL AST (13-39) U/L ALT (7-52) U/L Alkaline Phosphatase (34-104) U/L Troponin I (<0.04) ng/mL C-Reactive Protein (< 5.00) mg/L B-Natriuretic Peptide 73 ( - 100) pg/mL Total Protein (6.4-8.9) g/dL Albumin (3.2-5.2) g/dL Globulin (2-4) g/dL Albumin/Globulin Ratio (1-3) Vitamin B12 Folate Microbiology and Other Data: Microbiology 09/18/16 05:16 Aerobic Blood Culture - Preliminary Blood Venous No Growth Day 1 Anaerobic Blood Culture - Preliminary No Growth Day 1 Assess/Plan/Problems-Billing Ms Fuller is a 61 yo F who has a h/o COPD, fibromyalgia, type II DM and depression who presented to the ER with c/o 2 weeks of intermittent fevers and the sudden onset of severe L sided chest pain worse with deep breath and movement - Patient Problems (1) Mass of lower lobe of left lung Comment: Suspect PNA. Concern for abscess however air bronchograms notes and no air fluid levels. Less likely PE with infarct with such large area in abscence of blood, improvement with abx, and strep in sputum culture. Will decrease lovenox to prophylaxis dosing. Cefepime and vanco. Sensitivites pending for sputum culture -Neoplasm on differential although improving with abx. Will need repeat imaging to confirm improvement and r/o need for biopsy. Timing for imaging will need to be discussed with ID and pulm consults (2) Sepsis Comment: Present on admission now resolved 2/2 suspected PNA with strep (3) ARF (acute renal failure) Comment: Resolved with normal saline Suspect developed in setting of sepsis, IV contrast dye and perhaps being in a pre-renal state. restarted lasix 09/22 (4) Chest pain Priority: High Comment: Much improved. Pain likely secondary to process in LLL. Continue fentanyl patch change IV to PO dilaudid (5) Anemia Comment: H/H improved Continue iron and B12 supplementation. No need to transfuse unless < 7.0 Trend (6) Elevated troponin Comment: Likely demand ischemia. No further work up at this time. (7) COPD (chronic obstructive pulmonary disease) SNOMED Code(s): 51751640 Comment: Continue prednisone, dulera and prn albuterol and spiriva (8) Type II diabetes mellitus Comment: controlled Off metformin On steroids trend (9) Hypertension Comment: Restart lisinopril 09/21 Add lasix 09/22 (10) DVT prophylaxis Comment: lovenox
[2016-09-22] MEDS: Cefepime(*) 1 GM in NS 0.9% 50 ML* 50 ML IVPB SCH ×2 (10:55→22:24)
[2016-09-22] MEDS: Gabapentin CAP(*) 300 MG PO SCH ×2 (11:31→20:54)
[2016-09-23] MEDS: Vancomycin(*) 1,000 MG in NS 0.9% 250 ML* 250 ML IVPB SCH ×2 (00:35→09:46)
[2016-09-23] MEDS: Omeprazole CAP* 20 MG PO SCH (05:36)
[2016-09-23 06:21] LABS: Hematocrit 28 % (35-47); Hemoglobin 8.9 g/dl (12.0-16.0); Mean Corpuscular HGB Conc 32 g/dl (31-36); Mean Corpuscular Hemoglobin 23 pg (27-31); Mean Platelet Volume 6 um3 (7.4-10.4); Red Blood Count 3.96 10^6/ul (4.0-5.4); Red Cell Distribution Width 19 % (10.5-15); White Blood Count 13.9 10^3/ul (3.5-10.8)
[2016-09-23 06:27] LABS: Comments Flag Yes
[2016-09-23 06:28] LABS: Add Diff/Slide Review? Slide Review Added; Mean Corpuscular Volume 70 fL (80-97)
[2016-09-23 06:42] LABS: BUN/Creatinine Ratio 12.7 (8-20); Calcium 9.1 mg/dL (8.6-10.3); EGFR African American 95.8 (>60); EGFR Non-African American 74.5 (>60); Potassium 3.4 mmol/L (3.5-5.0)
[2016-09-23] MEDS: fentaNYL Patch Check Q Shift 1 NOTE SCH (07:02)
[2016-09-23] MEDS: Insulin LISPRO* 1 UNITS UNIT SUBCUT SCH ×3 (07:35→17:30)
[2016-09-23] MEDS: Tiotropium CAP.INH* CAP.INH/18 MCG INH SCH (07:46)
[2016-09-23] MEDS: Mometasone/Formoter 200/5 MDI INH SCH ×2 (07:47→20:10)
[2016-09-23] MEDS: Enoxaparin(*) 40 MG/0.4 ML SYR SUBCUT SCH (09:46)
[2016-09-23] MEDS: Cyanocobalamin TAB* 500 MCG PO SCH (09:47)
[2016-09-23] MEDS: Ferrous Sulfate TAB* 325 MG PO SCH ×2 (09:47→21:31)
[2016-09-23] MEDS: Sertraline* 100 MG TAB PO SCH (09:47)
[2016-09-23] MEDS: Lisinopril TAB* 10 MG PO SCH (09:48)
[2016-09-23] MEDS: Furosemide TAB* 20 MG PO SCH (09:48)
[2016-09-23] MEDS: predniSONE TAB* 10 MG PO SCH (09:49)
[2016-09-23] MEDS: Cefepime(*) 1 GM in NS 0.9% 50 ML* 50 ML IVPB SCH ×2 (11:15→21:32)
--- NOTE | 2016-09-23 12:20 | PN ---
Progress Note - Progress Note SOAP: Subjective: DOS: 09/23/16 CC: lung abscess HPI: 61 year old woman with COPD; left chest pain, cough, fever, mass on CT; improved with abx. Now with cough less frequent, sometimes productive, no hemoptysis. Appetite is good. Objective: [] Vital Signs Temp 36.9 C 09/23/16 11:49 Pulse 87 09/23/16 11:49 Resp 18 09/23/16 11:49 BP 151/86 09/23/16 11:49 Pulse Ox 95 09/23/16 11:49 Intake & Output 09/22/16 09/23/16 09/23/16 18:59 06:59 18:59 Intake Total 985 725 640 Balance 985 725 640 Intake: IV Fluids 325 265 15 ABX - CEFEPIME 50 15 vanco 275 265 IVPB 300 60 55 ABX - CEFEPIME 15 60 55 vanco 285 Oral 360 400 570 Other: Estimated Void Medium # Voids 2 Gen:Awake, no distress HEENT:PERRL, MMM Neck:supple Heart:RRR no murmur Lung:BL expir wheeze, no rales Abd:+BS NTND soft Skin: no rash Laboratory Results - last 24 hr 09/22/16 09/23/16 09/23/16 16:25 05:55 05:55 WBC 13.9 H RBC 3.96 L Hgb 8.9 L Hct 28 L MCV 70 L MCH 23 L MCHC 32 RDW 19 H Plt Count 510 H MPV 6 L Neut % (Auto) 72.0 Lymph % (Auto) 18.9 L [place] % (Auto) 7.1 Eos % (Auto) 0.9 Baso % (Auto) 1.1 Absolute Neuts (auto) 10.0 H Absolute Lymphs (auto) 2.6 Absolute Monos (auto) 1.0 H Absolute Eos (auto) 0.1 Absolute Basos (auto) 0.1 Absolute Nucleated RBC 0.04 Nucleated RBC % 0.3 Sodium 139 Potassium 3.4 L Chloride 104 Carbon Dioxide 27 Anion Gap 8 BUN 10 Creatinine 0.79 Est GFR ( Amer) 95.8 Est GFR (Non-Af Amer) 74.5 BUN/Creatinine Ratio 12.7 Glucose 109 H POC Glucose (mg/dL) 181 H Calcium 9.1 09/23/16 09/23/16 07:32 11:34 WBC RBC Hgb Hct MCV MCH MCHC RDW Plt Count MPV Neut % (Auto) Lymph % (Auto) [place] % (Auto) Eos % (Auto) Baso % (Auto) Absolute Neuts (auto) Absolute Lymphs (auto) Absolute Monos (auto) Absolute Eos (auto) Absolute Basos (auto) Absolute Nucleated RBC Nucleated RBC % Sodium Potassium Chloride Carbon Dioxide Anion Gap BUN Creatinine Est GFR ( Amer) Est GFR (Non-Af Amer) BUN/Creatinine Ratio Glucose POC Glucose (mg/dL) 129 H 168 H Calcium Assessment: 1. left lung abscess; Viridans Grp Strep in sputum which is typical organism for lung abscess 2. COPD 3. obesity 4. MAYKEL 5. T2 diabetes Plan: 1. ceftriaxone 2gm IV Q24hrs for 4 weeks; CBC, CMP. CRP Q7days. PICC (ordered) . Repeat imaging at end of treatment to evaluate for underlying malignancy Discussed with Dr Nihcols 35 minutes floor time >50% counseling and coordination regarding treatment of lung abscess and need for follow up imaging and pulmonary follow up
[2016-09-23] MEDS: Gabapentin CAP(*) 300 MG PO SCH ×2 (12:38→21:31)
--- NOTE | 2016-09-23 16:06 | PN ---
Progress Note - Progress Note Note: Pulm consult f/u note 09/23/16 Pt seen and examined at bedside.Pt reports improvement in breathing. No new complaints. Active Medications Generic Name Dose Route Start Last Admin Trade Name Freq PRN Reason Stop Dose Admin Acetaminophen 650 mg 09/19/16 14:32 09/19/16 14:49 Tylenol Tab* PO 650 mg Q4H PRN Administration pain or fever Albuterol 2.5 mg 09/19/16 09:55 09/19/16 23:16 Ventolin 2.5 Mg/3 Ml Neb.Suly* INH 2.5 mg Q4H PRN Administration SOB/WHEEZING Cyanocobalamin 1,000 mcg 09/19/16 14:00 09/23/16 09:47 Vitamin B12 Tab* PO 1,000 mcg DAILY [facility] Administration Cyclobenzaprine HCl 10 mg 09/17/16 21:59 Flexeril Tab* PO TID PRN SPASMS Dextrose 12.5 gm 09/17/16 21:10 D50w Syringe 50 Ml* IV PUSH .FOR FS < 60 - SS PRN FS < 60 Enoxaparin Sodium 40 mg 09/23/16 09:00 09/23/16 09:46 Lovenox(*) SUBCUT 40 mg Q24H [facility] Administration Fentanyl 25 mcg 09/18/16 09:00 09/21/16 08:02 Duragesic Patch 25 Mcg/Hr* TRANSDERM 25 mcg Q72H [facility] Administration Ferrous Sulfate 325 mg 09/19/16 21:00 09/23/16 09:47 Ferrous Sulfate Tab* PO 325 mg BID [facility] Administration Furosemide 20 mg 09/22/16 09:00 09/23/16 09:48 Lasix Tab* PO 20 mg DAILY [facility] Administration Gabapentin 600 mg 09/18/16 12:00 09/23/16 12:38 Neurontin Cap(*) PO 600 mg 1200,2000 [facility] Administration Hydralazine HCl 10 mg 09/22/16 03:56 09/22/16 12:35 Apresoline Iv* IV 10 mg Q4H PRN Administration Systolic >170 Hydromorphone HCl 2 mg 09/21/16 13:11 09/22/16 08:34 Dilaudid Tab* PO 2 mg Q4H PRN Administration PAIN Cefepime HCl 1 gm/ Sodium 50 mls @ 100 mls/hr 09/19/16 10:00 09/23/16 11:15 Chloride IVPB 100 mls/hr Q12H [facility] Administration Insulin Human Lispro 0 units 09/18/16 07:30 09/23/16 12:38 Humalog* SUBCUT 3 unit AC [facility] Administration Protocol Lisinopril 10 mg 09/22/16 09:00 09/23/16 09:48 Prinivil Tab* PO 10 mg DAILY [facility] Administration Mometasone Furoate/Formoterol Fumar 2 puff 09/18/16 09:00 09/23/16 07:47 Dulera 200/5 Mdi* INH 2 puff BID [facility] Administration Omeprazole 20 mg 09/19/16 05:00 09/23/16 05:36 Prilosec Cap* PO 20 mg DAILY@0600 [facility] Administration Pharmacy Profile Note 1 note 09/18/16 19:00 09/23/16 07:02 Fentanyl Patch Check Q Shift N/A 1 note 0700,1900 [facility] Administration Prednisone 30 mg 09/19/16 18:00 09/23/16 09:49 Deltasone Tab* PO 30 mg DAILY WITH MEAL [facility] Administration Sertraline HCl 100 mg 09/18/16 09:00 09/23/16 09:47 Zoloft* PO 100 mg DAILY [facility] Administration Tiotropium [place] 1 cap 09/22/16 09:00 09/23/16 07:46 Spiriva Cap.Inh* INH 1 cap DAILY [facility] Administration Vital Signs Temp Pulse Resp BP Pulse Ox 98.1 F 88 18 154/84 96 09/23/16 15:19 09/23/16 15:19 09/23/16 15:19 09/23/16 15:19 09/23/16 15:19 O/E: Morbidly obese female in NAD HEENT: PERRLA, No JVD Resp: scaterred wheeze present CVS: S1, S2+ Abd: Obese, BS+ Ext: No edema Skin: No rash, no bruise Neuro: NO focal defecits Laboratory Results - last 24 hr 09/22/16 09/23/16 09/23/16 16:25 05:55 05:55 WBC 13.9 H RBC 3.96 L Hgb 8.9 L Hct 28 L MCV 70 L MCH 23 L MCHC 32 RDW 19 H Plt Count 510 H MPV 6 L Neut % (Auto) 72.0 Lymph % (Auto) 18.9 L [place] % (Auto) 7.1 Eos % (Auto) 0.9 Baso % (Auto) 1.1 Absolute Neuts (auto) 10.0 H Absolute Lymphs (auto) 2.6 Absolute Monos (auto) 1.0 H Absolute Eos (auto) 0.1 Absolute Basos (auto) 0.1 Absolute Nucleated RBC 0.04 Nucleated RBC % 0.3 Sodium 139 Potassium 3.4 L Chloride 104 Carbon Dioxide 27 Anion Gap 8 BUN 10 Creatinine 0.79 Est GFR ( Amer) 95.8 Est GFR (Non-Af Amer) 74.5 BUN/Creatinine Ratio 12.7 Glucose 109 H POC Glucose (mg/dL) 181 H Calcium 9.1 09/23/16 09/23/16 07:32 11:34 WBC RBC Hgb Hct MCV MCH MCHC RDW Plt Count MPV Neut % (Auto) Lymph % (Auto) [place] % (Auto) Eos % (Auto) Baso % (Auto) Absolute Neuts (auto) Absolute Lymphs (auto) Absolute Monos (auto) Absolute Eos (auto) Absolute Basos (auto) Absolute Nucleated RBC Nucleated RBC % Sodium Potassium Chloride Carbon Dioxide Anion Gap BUN Creatinine Est GFR ( Amer) Est GFR (Non-Af Amer) BUN/Creatinine Ratio Glucose POC Glucose (mg/dL) 129 H 168 H Calcium CTA chest: Non-diagnostic for PE, Wedge shaped LLL opacity noted along with prominant hilar node. Atelectasis of LLL basal segment I/R; Pt is 61 y o morbidly obese female with h/o COPD a/w fever, tachycardia, leucocytosis being treated for CAP with evidence of wedge shaped infarct in LLL , CTA non-diagnostic, underwent rpt CTA today which didnot confirm PE due to delayed contrast in pulm arteries. Pt with hypotension, tachycardia and ARF transferred to ICU for close monitoring. Hypotension resolved with fluid resuscitation O2 requirements have improved, she is on RA today Can taper prednisone Underlying etilogy still unclear- infectious versus inflammatory versus neoplastic Work up for CTD is negative Contrast induced nephropathy also in differential for RF, improved Will hold off on biopsy as everything points towards possible infectious etiology Will need rpt CT in 3-4 weeks On prophylactic dose of Lovenox D/w Dr Nichols
[2016-09-23] MEDS ORDERED: oxyCODONE/Acetamin 5/325 MG* TAB PO PRN (16:37)
--- NOTE | 2016-09-23 16:40 | PN ---
Subjective Date of Service: 09/23/16 Interval History: cough resolved. walking back and forth to bathroom without SOB Pain resolved but still has fenanyl patch on anxious to leave hospital. agrees with stopping fentanyl Objective Active Medications: Acetaminophen (Tylenol Tab*) 650 mg PO Q4H PRN PRN Reason: pain or fever Last Admin: 09/19/16 14:49 Dose: 650 mg Albuterol (Ventolin 2.5 Mg/3 Ml Neb.Suly*) 2.5 mg INH Q4H PRN PRN Reason: SOB/WHEEZING Last Admin: 09/19/16 23:16 Dose: 2.5 mg Cyanocobalamin (Vitamin B12 Tab*) 1,000 mcg PO DAILY [facility] Last Admin: 09/23/16 09:47 Dose: 1,000 mcg Cyclobenzaprine HCl (Flexeril Tab*) 10 mg PO TID PRN PRN Reason: SPASMS Dextrose (D50w Syringe 50 Ml*) 12.5 gm IV PUSH .FOR FS < 60 - SS PRN PRN Reason: FS < 60 Enoxaparin Sodium (Lovenox(*)) 40 mg SUBCUT Q24H [facility] Last Admin: 09/23/16 09:46 Dose: 40 mg Ferrous Sulfate (Ferrous Sulfate Tab*) 325 mg PO BID [facility] Last Admin: 09/23/16 09:47 Dose: 325 mg Furosemide (Lasix Tab*) 20 mg PO DAILY [facility] Last Admin: 09/23/16 09:48 Dose: 20 mg Gabapentin (Neurontin Cap(*)) 600 mg PO 1200,2000 [facility] Last Admin: 09/23/16 12:38 Dose: 600 mg Hydralazine HCl (Apresoline Iv*) 10 mg IV Q4H PRN PRN Reason: Systolic >170 Last Admin: 09/22/16 12:35 Dose: 10 mg Cefepime HCl 1 gm/ Sodium (Chloride) 50 mls @ 100 mls/hr IVPB Q12H [facility] Last Admin: 09/23/16 11:15 Dose: 100 mls/hr Insulin Human Lispro (Humalog*) 0 units SUBCUT AC [facility] PRN Reason: Protocol Last Admin: 09/23/16 12:38 Dose: 3 unit Lisinopril (Prinivil Tab*) 10 mg PO DAILY [facility] Last Admin: 09/23/16 09:48 Dose: 10 mg Mometasone Furoate/Formoterol Fumar (Dulera 200/5 Mdi*) 2 puff INH BID [facility] Last Admin: 09/23/16 07:47 Dose: 2 puff Omeprazole (Prilosec Cap*) 20 mg PO DAILY@0600 [facility] Last Admin: 09/23/16 05:36 Dose: 20 mg Pharmacy Profile Note (Fentanyl Patch Check Q Shift) 1 note N/A 0700,1900 [facility] Last Admin: 09/23/16 07:02 Dose: 1 note Prednisone (Deltasone Tab*) 20 mg PO DAILY [facility] Sertraline HCl (Zoloft*) 100 mg PO DAILY [facility] Last Admin: 09/23/16 09:47 Dose: 100 mg Tiotropium [place] (Spiriva Cap.Inh*) 1 cap INH DAILY [facility] Last Admin: 09/23/16 07:46 Dose: 1 cap Vital Signs 09/22/16 09/22/16 09/22/16 19:21 19:54 19:55 Temperature 98.0 F Pulse Rate 87 87 87 Respiratory 18 Rate Blood Pressure 153/90 (mmHg) O2 Sat by Pulse 96 98 98 Oximetry 09/22/16 09/22/16 09/22/16 20:00 20:54 23:23 Temperature 98.1 F Pulse Rate 91 Respiratory 16 18 16 Rate Blood Pressure 166/81 (mmHg) O2 Sat by Pulse 96 Oximetry 09/23/16 09/23/16 09/23/16 03:35 07:33 07:35 Temperature 97.9 F 98.4 F Pulse Rate 84 93 Respiratory 20 18 18 Rate Blood Pressure 175/84 150/99 (mmHg) O2 Sat by Pulse 97 93 Oximetry 09/23/16 09/23/16 09/23/16 07:47 11:49 12:38 Temperature 98.5 F Pulse Rate 90 87 Respiratory 14 18 18 Rate Blood Pressure 151/86 (mmHg) O2 Sat by Pulse 98 95 Oximetry 09/23/16 09/23/16 14:38 15:19 Temperature 98.1 F Pulse Rate 88 Respiratory 18 18 Rate Blood Pressure 154/84 (mmHg) O2 Sat by Pulse 96 Oximetry Oxygen Devices in Use Now: None - room air Appearance: NAD Eyes: No Scleral Icterus, PERRLA Ears/Nose/Mouth/Throat: Clear Oropharnyx, Mucous Membranes Moist Neck: NL Appearance and Movements; NL JVP, Trachea Midline Respiratory: Symmetrical Chest Expansion and Respiratory Effort, Clear to Auscultation Cardiovascular: RRR Abdominal: NL Sounds; No Tenderness; No Distention, No Hepatosplenomegaly Lymphatic: No Cervical Adenopathy Extremities: - - trace to 1+ LE edema Neurological: Alert and Oriented x 3 Result Diagrams: 09/23/16 05:55 09/23/16 05:55 Additional Lab and Data: Lab Results 09/17/16 09/17/16 09/17/16 Range/Units 18:33 18:33 18:33 WBC 15.6 H (3.5-10.8) 10^3/ul RBC 4.43 (4.0-5.4) 10^6/ul Hgb 10.0 L (12.0-16.0) g/dl Hct 32 L (35-47) % MCV 72 L (80-97) fL MCH 23 L (27-31) pg MCHC 31 (31-36) g/dl RDW 19 H (10.5-15) % Plt Count 367 (150-450) 10^3/ul MPV 7 L (7.4-10.4) um3 Neut % (Auto) 83.6 H (38-83) % Lymph % (Auto) 9.2 L (25-47) % Camp % (Auto) 6.1 (1-9) % Eos % (Auto) 0.6 (0-6) % Baso % (Auto) 0.5 (0-2) % Absolute Neuts (auto) 13.0 H (1.5-7.7) 10^3/ul Absolute Lymphs (auto) 1.4 (1.0-4.8) 10^3/ul Absolute Monos (auto) 0.9 H (0-0.8) 10^3/ul Absolute Eos (auto) 0.1 (0-0.6) 10^3/ul Absolute Basos (auto) 0.1 (0-0.2) 10^3/ul Absolute Nucleated RBC 0.01 10^3/ul Nucleated RBC % 0 Sodium 132 L (133-145) mmol/L Potassium 3.9 (3.5-5.0) mmol/L Chloride 98 L (101-111) mmol/L Carbon Dioxide 26 (22-32) mmol/L Anion Gap 8 (2-11) mmol/L BUN 8 (6-24) mg/dL Creatinine 0.98 H (0.51-0.95) mg/dL Est GFR ( Amer) 74.7 (>60) Est GFR (Non-Af Amer) 58.1 (>60) BUN/Creatinine Ratio 8.2 (8-20) Glucose 153 H (70-100) mg/dL Lactic Acid 2.0 (0.5-2.0) mmol/L Calcium 9.1 (8.6-10.3) mg/dL Iron 10 L (50-212) ug/dL TIBC 328 (250-450) mcg/dL % Saturation 3 L (15-55) % Unsat Iron Binding 318 ug/dL Ferritin Pending Total Bilirubin 0.50 (0.2-1.0) mg/dL AST 11 L (13-39) U/L ALT 10 (7-52) U/L Alkaline Phosphatase 113 H (34-104) U/L Troponin I 0.07 H* (<0.04) ng/mL C-Reactive Protein 161.65 H (< 5.00) mg/L B-Natriuretic Peptide ( - 100) pg/mL Total Protein 7.6 (6.4-8.9) g/dL Albumin 3.6 (3.2-5.2) g/dL Globulin 4.0 (2-4) g/dL Albumin/Globulin Ratio 0.9 L (1-3) Vitamin B12 Pending Folate Pending 09/17/16 Range/Units 18:33 WBC (3.5-10.8) 10^3/ul RBC (4.0-5.4) 10^6/ul Hgb (12.0-16.0) g/dl Hct (35-47) % MCV (80-97) fL MCH (27-31) pg MCHC (31-36) g/dl RDW (10.5-15) % Plt Count (150-450) 10^3/ul MPV (7.4-10.4) um3 Neut % (Auto) (38-83) % Lymph % (Auto) (25-47) % Camp % (Auto) (1-9) % Eos % (Auto) (0-6) % Baso % (Auto) (0-2) % Absolute Neuts (auto) (1.5-7.7) 10^3/ul Absolute Lymphs (auto) (1.0-4.8) 10^3/ul Absolute Monos (auto) (0-0.8) 10^3/ul Absolute Eos (auto) (0-0.6) 10^3/ul Absolute Basos (auto) (0-0.2) 10^3/ul Absolute Nucleated RBC 10^3/ul Nucleated RBC % Sodium (133-145) mmol/L Potassium (3.5-5.0) mmol/L Chloride (101-111) mmol/L Carbon Dioxide (22-32) mmol/L Anion Gap (2-11) mmol/L BUN (6-24) mg/dL Creatinine (0.51-0.95) mg/dL Est GFR ( Amer) (>60) Est GFR (Non-Af Amer) (>60) BUN/Creatinine Ratio (8-20) Glucose (70-100) mg/dL Lactic Acid (0.5-2.0) mmol/L Calcium (8.6-10.3) mg/dL Iron (50-212) ug/dL TIBC (250-450) mcg/dL % Saturation (15-55) % Unsat Iron Binding ug/dL Ferritin Total Bilirubin (0.2-1.0) mg/dL AST (13-39) U/L ALT (7-52) U/L Alkaline Phosphatase (34-104) U/L Troponin I (<0.04) ng/mL C-Reactive Protein (< 5.00) mg/L B-Natriuretic Peptide 73 ( - 100) pg/mL Total Protein (6.4-8.9) g/dL Albumin (3.2-5.2) g/dL Globulin (2-4) g/dL Albumin/Globulin Ratio (1-3) Vitamin B12 Folate Microbiology and Other Data: Microbiology 09/18/16 05:16 Aerobic Blood Culture - Preliminary Blood Venous No Growth Day 1 Anaerobic Blood Culture - Preliminary No Growth Day 1 Assess/Plan/Problems-Billing Ms Fuller is a 61 yo F who has a h/o COPD, fibromyalgia, type II DM and depression who presented to the ER with c/o 2 weeks of intermittent fevers and the sudden onset of severe L sided chest pain worse with deep breath and movement - Patient Problems (1) Mass of lower lobe of left lung Comment: Suspect PNA. Concern for abscess however air bronchograms notes and no air fluid levels. Less likely PE with infarct with such large area in abscence of blood, improvement with abx, and strep in sputum culture. Will decrease lovenox to prophylaxis dosing. Cefepime stop vanco plan on dc tomorrow with PICC and CTX daily 2g -Neoplasm on differential although improving with abx. Will need repeat imaging 3-4 wks as outpatient. (2) Sepsis Comment: Present on admission now resolved 2/2 suspected PNA with strep (3) ARF (acute renal failure) Comment: Resolved with normal saline Suspect developed in setting of sepsis, IV contrast dye and perhaps being in a pre-renal state. restarted lasix 09/22 (4) Chest pain Priority: High Comment: Much improved. Pain likely secondary to process in LLL. stop fentanyl patch (5) Anemia Comment: H/H improved Continue iron and B12 supplementation. No need to transfuse unless < 7.0 Trend (6) Elevated troponin Comment: Likely demand ischemia. No further work up at this time. (7) COPD (chronic obstructive pulmonary disease) SNOMED Code(s): 89599296 Comment: decrease prednisone 30 to 20mg dulera and prn albuterol and spiriva (8) Type II diabetes mellitus Comment: controlled Off metformin On steroids trend (9) Hypertension Comment: Restart lisinopril 09/21 Add lasix 09/22 (10) DVT prophylaxis Comment: lovenox
[2016-09-24] MEDS: Omeprazole CAP* 20 MG PO SCH (05:38)
[2016-09-24] MEDS: Sertraline* 100 MG TAB PO SCH (07:41)
[2016-09-24] MEDS: Cyanocobalamin TAB* 500 MCG PO SCH (07:41)
[2016-09-24] MEDS: Lisinopril TAB* 10 MG PO SCH (07:41)
[2016-09-24] MEDS: Furosemide TAB* 20 MG PO SCH (07:42)
[2016-09-24] MEDS: Ferrous Sulfate TAB* 325 MG PO SCH (07:42)
[2016-09-24] MEDS: Enoxaparin(*) 40 MG/0.4 ML SYR SUBCUT SCH (07:42)
[2016-09-24] MEDS: Insulin LISPRO* 1 UNITS UNIT SUBCUT SCH ×2 (07:44→11:34)
[2016-09-24] MEDS ORDERED: predniSONE TAB* 20 MG PO SCH (08:30)
[2016-09-24] MEDS: Cefepime(*) 1 GM in NS 0.9% 50 ML* 50 ML IVPB SCH (09:29)
[2016-09-24] MEDS: Mometasone/Formoter 200/5 MDI INH SCH (09:34)
[2016-09-24] MEDS: Tiotropium CAP.INH* CAP.INH/18 MCG INH SCH (09:37)
[2016-09-24] MEDS: Gabapentin CAP(*) 300 MG PO SCH (11:36)
[2016-09-24 14:15] VITALS: BP 145/109
--- NOTE | 2016-09-25 08:36 | DS ---
DISCHARGE SUMMARY: DATE OF ADMISSION: 09/17/16 DATE OF DISCHARGE: 09/24/16 PRIMARY DIAGNOSIS: Pneumonia versus lung abscess. SECONDARY DIAGNOSES: Include: 1. Sepsis, present on admission secondary to viridans streptococci. 2. Acute renal failure. 3. Chest pain. 4. Anemia. 5. Elevated troponin. 6. Chronic obstructive pulmonary disease, not in exacerbation. 7. Mass of the left lower lung. 8. Hypertension. 9. Type 2 diabetes. MEDICATIONS ON DISCHARGE: Include: 1. Combivent 1 puff every 4 hours as needed for shortness of breath or wheezing. 2. Nexium 40 mg daily. 3. Flexeril 10 mg 3 times a day as needed for spasm. 4. Lasix 20 mg once daily. 5. Advair 250/50 one puff twice daily. 6. Gabapentin 600 mg at noon and in the evening. 7. Zoloft 100 mg once daily. 8. Zantac 150 mg daily. 9. Pravastatin 20 mg daily. 10. Benadryl 50 mg 3 times a day as needed. 11. Percocet 5/325 two tabs every 4 hours as needed for pain, max daily dose 12 , dispensed 60. 12. Ceftriaxone 2 g daily, to continue for 42 additional days. 13. Spiriva 1 cap inhaled daily. 14. Januvia 100 mg daily, please note new medication. 15. Prednisone 20 mg daily for 3 additional days and decrease 10 mg daily for 3 additional days and stop. 16. Lisinopril 20 mg, please note increased from 10 mg daily. 17. Ferrous sulfate 325 mg twice daily. 18. Vitamin B12 at 1000 mcg daily. IMAGING PERFORMED DURING HOSPITAL STAY: CTA chest and thorax, impression: Poor bolus timing prevented meaningful evaluation of the pulmonary arteries. There is a highly questionable nonocclusive filling defect in the left main stem pulmonary artery. In the left lower lobe, there is parenchymal mass measuring 5.3 cm, greatest dimension with a mildly enlarged ipsilateral left hilar lymph node and a small left pleural effusion. The etiology could be a neoplasm or less likely a large focus of atelectasis. There is a large hiatal hernia. CTA was repeated on the following day. CT of the chest and thorax repeated the following day, impression: There is transient interruption of contrast with well-opacified superior vena cava and the aorta. The pulmonary arteries are poorly opacified and therefore limited evaluation. Left lower lobe mass. Venous Doppler ultrasound: No evidence of left or right DVT. Transthoracic echocardiogram, impression: The study was technically difficult. The left ventricle was hyperdynamic with an estimated LVEF of 60% to 65%. The right ventricular global systolic function is moderately reduced and wall thickness mildly increased. The aortic valve leaflets are mildly thickened with good function. Tricuspid valve structure is not well visualized, normal function. Pulmonic valve structures not well visualized. PERTINENT LABORATORY DATA: White count peaked at 21,700 and was 13,900 on the day of discharge. Hemoglobin nadired at 7.3, increased to 8.9 on the day of discharge without blood transfusion. MCV of 70. Platelets 510 on the day of discharge. Creatinine peaked at 2.0, improved; 0.79 on the day prior to discharge. Troponin I peaked at 0.08, felt to be in the setting of demand ischemia. ALBER 0.2, ANCA and pANCA less than 0.2. CONSULTATIONS DURING THIS HOSPITAL STAY: Include: 1. Infectious Diseases. 2. Pulmonology. HISTORY OF PRESENT ILLNESS AND HOSPITAL COURSE: This is a 61-year-old female, past medical history as outlined in the history of present illness on the day of admission presented to the hospital with left-sided chest pain as well as intermittent fevers for 2 weeks prior to presentation. Fever on presenting to the emergency room was 102.5 degrees; last fever in the hospital was on . CTA with findings indicated above a mass in the left lower lobe. The operating differential included a pulmonary embolism with a wedge-shaped infarct , abscess, consolidation, or neoplasm. The patient was treated with heparin for part of her hospital stay; however, her symptoms improved with treatment of antibiotics. In the setting of leukocytosis, improvement with antibiotics and ultimately growth of Strep intermedius from a good sputum sample, the consolidation in her lung was felt to represent pneumonia versus a developing abscess given the time of development prior to presentation. Heparin was discontinued several days prior to discharge. Her antibiotics were narrowed from vancomycin and cefepime to ceftriaxone on the day of discharge. She will continue for 6 weeks antibiotics via PICC line which was placed. She will receive her antibiotics at home with assistance of VNS. Complications in this hospital stay included sepsis thought secondary to pneumonia with Strep viridans , improved with antibiotics and fluids. Acute renal failure thought in the setting of sepsis, potentially IV contrast dye and prerenal state improved with fluids. She had chest pain which brought her to the hospital which has improved in the setting of treatment of her infection as well as with a fentanyl patch. Fentanyl patch was removed the day prior to discharge, treated with oral pain medications for breakthrough. She was found to be iron deficient and started on iron as well as B12 supplementation. Her troponin was elevated, thought to represent demand ischemia for which no intervention was taken. She was started on prednisone and tapered down to 20 mg prior to discharge, continued taper down to 10 mg on discharge for her shortness of breath and for the treatment of potential COPD exacerbation versus worsening breathing in the setting of pneumonia. The patient had GI distress with her metformin prior to presentation, was held in the setting of acute kidney injury. She will be restarted on Januvia on discharge given previous side effects with metformin. The patient's blood pressure was also elevated during the course of the hospital stay potentially in the setting of large amount of crystalloid she received. Lisinopril was restarted and her Lasix restarted; however, blood pressure remained high. Lisinopril will be doubled from 10 to 20 mg on the day of discharge. On the day of discharge, the patient was on room air ambulating without distress , tolerating a regular diet. Cough had resolved. She had no complaints. FOLLOWUP: Please: 1. She will have followup, she will need repeat CAT scan of her chest to evaluate for resolution of mass. Care was discussed with Dr. Travis, who will see the patient in clinic, evaluate need for bronchoscopy based on repeat CAT scan in 3 to 4 weeks. 2. Please follow diabetes on Januvia and also metformin. 3. Please follow hypertension, on increased dose of lisinopril. 4. No other specific labs or vitals that need followup. Reasons to return to the hospital including but not limited to recurrent or worsening symptoms including chest pain, shortness of breath, nausea, vomiting, lightheadedness, loss of consciousness, near loss of consciousness, bleeding from any source, diarrhea, fever, chills, night sweats, inability to obtain or tolerate medications was discussed with the patient and she acknowledged understanding. TIME SPENT: Greater than 60 minutes was spent on discharge of this patient, greater than half was spent face to face with the patient. CC: Dr. Adelso Acosta; Dr. Sammi Travis; Dr. Emre Madrigal* [id number]/[facility] #: [id number] [facility]ITAL[facility]
== END 2016-09-24 16:10 | disposition home health service (06) | DRG 871 ==
LOC: ED 18:11 → MEDTELE 20:10 → OBSVTOIN 22:08 → ICU 09-19 15:04 → MEDTELE 09-20 11:04
PROVIDERS: ADMIT Hospitalist; ATTEND Internal Medicine
PROC: 02HV33Z Insertion of Infusion Device into Superior Vena Cava, Percutaneous Approach (ICD-10-PCS; principal; 2016-09-24)
DX: A40.8 Other streptococcal sepsis (principal); J15.4 Pneumonia due to other streptococci; J90 Pleural effusion, not elsewhere classified; N17.9 Acute kidney failure, unspecified; I24.8 Other forms of acute ischemic heart disease; Z68.42 Body mass index [BMI] 45.0-49.9, adult; J44.0 Chronic obstructive pulmonary disease with (acute) lower respiratory infection; E66.01 Morbid (severe) obesity due to excess calories; E11.9 Type 2 diabetes mellitus without complications; I10 Essential (primary) hypertension; F32.9 Major depressive disorder, single episode, unspecified; D64.9 Anemia, unspecified; Z91.040 Latex allergy status; Z88.8 Allergy status to other drugs, medicaments and biological substances; F41.0 Panic disorder [episodic paroxysmal anxiety]; Z82.49 Family history of ischemic heart disease and other diseases of the circulatory system; Z98.51 Tubal ligation status; Z87.891 Personal history of nicotine dependence; Z83.3 Family history of diabetes mellitus; G89.29 Other chronic pain; M79.7 Fibromyalgia; K21.9 Gastro-esophageal reflux disease without esophagitis; Z83.6 Family history of other diseases of the respiratory system; R91.8 Other nonspecific abnormal finding of lung field; K44.9 Diaphragmatic hernia without obstruction or gangrene; R09.02 Hypoxemia; D50.9 Iron deficiency anemia, unspecified
CPT/HCPCS: 36415; 71010; 71020; 71275; 80048; 80053; 80076; 80202; 81002; 81003; 82272; 82607; 82728; 82746; 83516; 83540; 83550; 83605; 83880; 83935; 84156; 84300; 84484; 85025; 85027; 85379; 86038; 86140; 87040; 87070; 87077; 87186; 87205; 93005; 93306; 93970; 94640; 94760; A9270-GY; C1751; J0360; J0692; J0696; J1170; J1644; J1650; J2270; J2405; J3370; J7512; Q9956; Q9967

== ENCOUNTER 2018-05-08 10:05 | Inpatient (IN) | payer MEDICARE, MEDICAID ==
[2018-05-08] MEDS ORDERED: Acetaminophen TAB* 325 MG PO ONE (10:30)
[2018-05-08] MEDS: NS 0.9% 1000 ML* 2,000 ML IV ONE ×2 (10:40→10:44)
[2018-05-08 10:46] LABS: ABS Basophils 0 10^3/ul (0-0.2); ABS Eosinophils 0 10^3/ul (0-0.6); ABS Lymphocytes 0.4 10^3/ul (1.0-4.8); ABS Monocytes 0.4 10^3/ul (0-0.8); ABS Neutrophils 12.9 10^3/ul (1.5-7.7); ABS Nucleated RBC 0 10^3/ul; Eosinophil % 0.3 %; Hematocrit 43 % (35-47); Hemoglobin 14.2 g/dl (12.0-16.0); Lymphocyte % 3.1 %; Mean Corpuscular HGB Conc 33 g/dl (31-36); Mean Corpuscular Hemoglobin 28 pg (27-31); Mean Corpuscular Volume 85 fL (80-97); Mean Platelet Volume 6.8 fL (7.4-10.4); Nucleated Red Blood Cells % 0.1; Platelet Count 315 10^3/ul (150-450); Red Blood Count 5.09 10^6/ul (4.00-5.40); Red Cell Distribution Width 17 % (10.5-15); White Blood Count 13.8 10^3/ul (3.5-10.8)
[2018-05-08 11:03] LABS: INR 0.91 (0.77-1.02)
[2018-05-08] MEDS ORDERED: Azithromycin IV(*) 500 MG in NS 0.9% 250 ML* 250 ML IVPB ONE (11:07)
[2018-05-08] MEDS ORDERED: cefTRIAXone(*) 1 GM in NS 0.9% 50 ML* 50 ML IVPB ONE (11:07)
--- NOTE | 2018-05-08 11:07 | ED ---
Shortness of Breath - HPI Summary HPI Summary: A 62 y/o female brought in by [facility] presents to [facility] with a chief complaint of constant SOB since 05:30 05/08/2018. She states her SOB worsens with exertion and also c/o cough, abd pain, chills and some dysuria but she states having a little dysuria is her baseline. She also c/o N/V/D. She has a Hx of COPD, Asthma and hiatal hernia but denies a Hx of CHF. She is a former smoker. She claims to not wear O2 at home. She admits to not getting her flu shot. - History of Current Complaint Chief Complaint: EDShortnessOfBreath Time Seen by Provider: 05/08/18 10:24 Hx Obtained From: Patient, EMS Onset/Duration: Sudden Onset, Lasting Hours, Still Present Current Severity: Moderate Aggrevating Factors: Movement Associated Signs & Symptoms: Cough (Nonproductive), Chills - Allergy/Home Medications Allergies/Adverse Reactions: Allergies Allergy/AdvReac Type Severity Reaction Status Date / Time latex Allergy Itching Verified 05/08/18 11:03 salicylates Allergy Anaphylatic Verified 05/08/18 11:03 Shock Home Medications: Home Medications Albuterol inh POWDER (NF) [Proair Respiclick] 1 puff INH Q6HR PRN 05/08/18 [ History Confirmed 05/08/18] Albuterol/Ipratropium RESP(NF) [Combivent Respimat(NF)] 1 puff INH QID 05/08/18 [History Confirmed 05/08/18] Amitriptyline TAB* [Elavil TAB*] 50 mg PO BEDTIME 05/08/18 [History Confirmed ] Ascorbic Acid TAB* [Vitamin C TAB*] 500 mg PO BID 05/08/18 [History Confirmed 05/08/18] Dulaglutide (NF) [Trulicity (NF)] 0.75 mg SUBCUT WEEKLY 05/08/18 [History Confirmed 05/08/18] Esomeprazole(NF) [NexIUM(NF)] 40 mg PO QAM 05/08/18 [History Confirmed 05/08/18] Ferrous Sulfate TAB* 325 mg PO BID 05/08/18 [History Confirmed 05/08/18] Fluticasone-Salmeterol 250-50* [Advair Diskus 250-50*] 1 puff INH BID 05/08/18 [ History Confirmed 05/08/18] Furosemide TAB* [Lasix TAB*] 20 mg PO DAILY 05/08/18 [History Confirmed 05/08/18 ] Gabapentin CAP(*) [Neurontin 300 CAP(*)] 300 mg PO TID 05/08/18 [History Confirmed 05/08/18] Lisinopril TAB* [Prinivil TAB*] 20 mg PO DAILY 05/08/18 [History Confirmed 05/08] Pravastatin (NF) [Pravachol (NF)] 20 mg PO QAM 05/08/18 [History Confirmed 05/08] Ranitidine TAB (NF) [Zantac TAB (NF)] 150 mg PO QPM 05/08/18 [History Confirmed 05/08/18] Sertraline* [Zoloft*] 150 mg PO QAM 05/08/18 [History Confirmed 05/08/18] oxyCODONE/Acetamin 5/325 MG* [Percocet 5/325 TAB*] 1 tab PO Q6H PRN 05/08/18 [ History Confirmed 05/08/18] PMH/Surg Hx/FS Hx/Imm Hx Endocrine/Hematology History: Reports: Hx Diabetes - type 2 Cardiovascular History: Reports: Hx Hypertension Denies: Hx Pacemaker/ICD Respiratory History: Reports: Hx Asthma, Hx Chronic Obstructive Pulmonary Disease (COPD), Other Respiratory Problems/Disorders GI History: Reports: Hx Hiatal Hernia History: Denies: Hx Renal Disease Musculoskeletal History: Reports: Hx Fibromyalgia Sensory History: Reports: Hx Contacts or Glasses Denies: Hx Hearing Aid Opthamlomology History: Reports: Hx Contacts or Glasses Neurological History: Reports: Hx Nerve Disease - post-herpetic neuralgia Psychiatric History: Reports: Hx Panic Disorder - THINKS WILL BE OKAY - Surgical History Surgery Procedure, Year, and Place: APPENDECTOMY, TUBAL LIGATION, TUBAL (ECTOPIC), Infectious Disease History: No Infectious Disease History: Reports: Hx Shingles Denies: Hx Clostridium Difficile, Hx Hepatitis, Hx Human Immunodeficiency Virus (HIV), Hx of Known/Suspected MRSA, Hx Tuberculosis, Hx Known/Suspected VRE , Hx Known/Suspected VRSA, History Other Infectious Disease, Traveled Outside the [place] in Last 30 Days - Family History Known Family History: Positive: Cardiac Disease, Hypertension, Diabetes - Social History Alcohol Use: None Substance Use Type: Reports: None Hx Tobacco Use: Yes Smoking Status (MU): Former Smoker Type: Cigarettes Length of Time of Smoking/Using Tobacco: quit Jun 20, 2011, smoked ~30 years on and off Have You Smoked in the Last Year: No Review of Systems Positive: Chills Positive: Shortness Of Breath, Cough Positive: Abdominal Pain, Vomiting, Diarrhea, Nausea Positive: dysuria All Other Systems Reviewed And Are Negative: Yes Physical Exam - Summary Physical Exam Summary: GENERAL: Patient is a well-developed and nourished F who is lying comfortable in the stretcher. Patient is not in any acute respiratory distress. HEAD AND FACE: Normocephalic EYES: PERRLA, EOMI x 2. EARS: Hearing grossly intact. MOUTH: Oropharynx within normal limits. NECK: Supple, trachea is midline, no adenopathy, no JVD, no carotid bruit. CHEST: Symmetric, no tenderness at palpation LUNGS: Crackles on left side. CVS: Tachycardic, S1 and S2 present, no murmurs or gallops appreciated. ABDOMEN: Soft, non-tender. Bowel sounds are normal. No abdominal abnormal pulsations. EXTREMITIES: Full ROM in all major joints, no edema, no cyanosis or clubbing. NEURO: Alert and oriented x 3. No acute neurological deficits. Speech is normal and follows commands. SKIN: Dry and warm Triage Information Reviewed: Yes Vital Signs On Initial Exam: Initial Vitals Temp Pulse Resp BP Pulse Ox 102 F 132 22 143/124 91 05/08/18 10:16 05/08/18 10:16 05/08/18 10:16 05/08/18 10:16 05/08/18 10:16 Vital Signs Reviewed: Yes Diagnostics - Vital Signs Vital Signs Temp Pulse Resp BP Pulse Ox 05/08/18 10:25 92 05/08/18 10:16 102 F 132 22 143/124 91 - Laboratory Lab Results: Lab Results 05/08/18 05/08/18 05/08/18 Range/Units 10:38 10:38 10:38 WBC 13.8 H (3.5-10.8) 10^3/ul RBC 5.09 (4.00-5.40) 10^6/ul Hgb 14.2 (12.0-16.0) g/dl Hct 43 (35-47) % MCV 85 (80-97) fL MCH 28 (27-31) pg MCHC 33 (31-36) g/dl RDW 17 H (10.5-15) % Plt Count 315 (150-450) 10^3/ul MPV 6.8 L (7.4-10.4) fL Neut % (Auto) 93.6 % Lymph % (Auto) 3.1 % Harris % (Auto) 2.8 % Eos % (Auto) 0.3 % Baso % (Auto) 0.2 % Absolute Neuts (auto) 12.9 H (1.5-7.7) 10^3/ul Absolute Lymphs (auto) 0.4 L (1.0-4.8) 10^3/ul Absolute Monos (auto) 0.4 (0-0.8) 10^3/ul Absolute Eos (auto) 0 (0-0.6) 10^3/ul Absolute Basos (auto) 0 (0-0.2) 10^3/ul Absolute Nucleated RBC 0 10^3/ul Nucleated RBC % 0.1 INR (Anticoag Therapy) 0.91 (0.77-1.02) APTT 30.8 (26.0-36.3) seconds Sodium Pending Potassium Pending Chloride Pending Carbon Dioxide Pending Anion Gap Pending BUN Pending Creatinine Pending Est GFR ( Amer) Pending Est GFR (Non-Af Amer) Pending BUN/Creatinine Ratio Pending Glucose Pending Calcium Pending Total Bilirubin Pending AST Pending ALT Pending Alkaline Phosphatase Pending Troponin I 0.02 (<0.04) ng/mL C-Reactive Protein Pending Total Protein Pending Albumin Pending Globulin Pending Albumin/Globulin Ratio Pending Influenza A (Rapid) (Negative) Influenza B (Rapid) (Negative) 05/08/18 Range/Units 10:50 WBC (3.5-10.8) 10^3/ul RBC (4.00-5.40) 10^6/ul Hgb (12.0-16.0) g/dl Hct (35-47) % MCV (80-97) fL MCH (27-31) pg MCHC (31-36) g/dl RDW (10.5-15) % Plt Count (150-450) 10^3/ul MPV (7.4-10.4) fL Neut % (Auto) % Lymph % (Auto) % Harris % (Auto) % Eos % (Auto) % Baso % (Auto) % Absolute Neuts (auto) (1.5-7.7) 10^3/ul Absolute Lymphs (auto) (1.0-4.8) 10^3/ul Absolute Monos (auto) (0-0.8) 10^3/ul Absolute Eos (auto) (0-0.6) 10^3/ul Absolute Basos (auto) (0-0.2) 10^3/ul Absolute Nucleated RBC 10^3/ul Nucleated RBC % INR (Anticoag Therapy) (0.77-1.02) APTT (26.0-36.3) seconds Sodium Potassium Chloride Carbon Dioxide Anion Gap BUN Creatinine Est GFR ( Amer) Est GFR (Non-Af Amer) BUN/Creatinine Ratio Glucose Calcium Total Bilirubin AST ALT Alkaline Phosphatase Troponin I (<0.04) ng/mL C-Reactive Protein Total Protein Albumin Globulin Albumin/Globulin Ratio Influenza A (Rapid) Negative (Negative) Influenza B (Rapid) Negative (Negative) Result Diagrams: 05/09/18 05:43 05/09/18 05:43 Lab Statement: Any lab studies that have been ordered have been reviewed, and results considered in the medical decision making process. - Radiology CXR Radiology Interpretation Completed By: Radiologist Summary of Radiographic Findings: LEFT LOWER LUNG CONSOLIDATION. RECOMMEND FOLLOW-UP UNTIL RESOLUTION TO EXCLUDE UNDERLYING PULMONARY PARENCHYMAL PATHOLOGY. ED physician has reviewed this imaging report. Course/Dx - Course Course Of Treatment: A 62 y/o female brought in by [facility] presents to [facility] with a chief complaint of constant SOB since 05:30 05/08/2018. Workup is remarkable with left side crackles and tachnycardia. Toponin .07. Lactic acid 2.1. CXR impression:LEFT LOWER LUNG CONSOLIDATION. RECOMMEND FOLLOW-UP UNTIL RESOLUTION TO EXCLUDE UNDERLYING PULMONARY PARENCHYMAL PATHOLOGY. The patient will be admitted. Dx: PNA Case discussed with hospitalist. I discussed results with patient. The patient agrees with this plan. - Diagnoses Provider Diagnoses: PNA (pneumonia) - Physician Notifications Discussed Care of Patient With: Janine Senner Time Discussed With Above Provider: 11:10 Instructed by Provider To: Admit As Inpatient Discharge - Sign-Out/Discharge Documenting (check all that apply): Patient Departure - Admit - Discharge Plan Condition: Fair Disposition: ADMITTED TO [facility] - Billing Disposition and Condition Condition: FAIR Disposition: Admitted to [facility] - Attestation Statements Document Initiated by Scribe: Yes Documenting Scribe: Johnnie Siddiqui Provider For Whom Scribe is Documenting (Include Credential): Tasha Cohen MD Scribe Attestation: Johnnie Taylor scribed for Tasha Cohen MD on 05/10/18 at 0152. Scribe Documentation Reviewed: Yes Provider Attestation: The documentation as recorded by the Johnnie pierce accurately reflects the service I personally performed and the decisions made by Carlita ortiz MD Status of Scribe Document: Viewed
[2018-05-08] MEDS ORDERED: NS 0.9% 1000 ML* 1,000 ML IV ONE (11:08)
[2018-05-08 11:33] LABS: EGFR Non-African American 48.1 (>60)
[2018-05-08] MEDS ORDERED: oxyCODONE/Acetamin 5/325 MG* TAB PO PRN (11:58)
[2018-05-08] MEDS ORDERED: Dextrose 50% Syringe 50 ML* 25 GM/50 ML SYRINGE IV PUSH PRN (12:00)
[2018-05-08] MEDS ORDERED: Acetaminophen TAB* 325 MG PO PRN (12:01)
[2018-05-08] MEDS ORDERED: Albuterol/Ipratropium NEB.SOL* Albuterol 2.5 MG/Ipratropium 0.5 MG 3 ML INH PRN (12:01)
[2018-05-08 12:15] LABS: Urine Appearance Clear; Urine Blood Negative (Negative); Urine Color Straw; Urine Ketones Negative (Negative); Urine Protein Negative (Negative); Urine Specific Gravity 1.009 (1.010-1.030); Urine Urobilinogen Negative (Negative)
[2018-05-08] MEDS: Heparin VIAL(*) 5000 UNITS/ML VIAL (FIVE THOUSAND) SUBCUT SCH ×2 (13:48→20:52)
[2018-05-08] MEDS: methylPREDNISolone SOD 40 MG* 1 ML VIAL IV SCH ×2 (13:48→20:43)
[2018-05-08] MEDS: Gabapentin CAP(*) 300 MG PO SCH ×2 (13:48→20:43)
[2018-05-08] MEDS: NS 0.9% 1000 ML* 1,000 ML IV SCH ×2 (14:15→23:05)
--- NOTE | 2018-05-08 16:19 | HP ---
CC: Dr. Acosta; Dr. Travis * HISTORY AND PHYSICAL: DATE OF ADMISSION: 05/08/18 TIME OF ADMISSION: 11:45 a.m. CHIEF COMPLAINT: Shortness of breath, shivers, and vomiting. HISTORY OF PRESENT ILLNESS: This is a 62-year-old female with history of COPD, obstructive sleep apnea, and a lung abscess, who presents with shortness of breath for the past month and sudden onset of nausea, vomiting and chills this morning. She also says that the shortness of breath gotten much worse this morning and even over the last few days. She thinks her emphysema has been flared for several weeks to a month and has been using her inhalers more often than usual without much effect. She did not think she is having fevers until this morning and she does not know of any sick contacts, although her son says that they went to a water park last week. She has not been smoking, but she also does not use her CPAP. She also complains of some chest pressure that began this morning when she woke up at 5:30. She describes it as feeling like an elephant on her chest. She thinks the pain got worse with exertion and was unchanged with deep inhalation. EMS was called and when they arrived, her pulse ox was 86% on room air, which resolved with 2 L of oxygen. PAST MEDICAL HISTORY: 1. COPD. She has no home O2 requirement. 2. Ybp-vjveswh-iipbttrnv diabetes. 3. Fibromyalgia. 4. Depression. 5. Lung abscess in 2017. 6. Obstructive sleep apnea, noncompliant with CPAP. 7. IBS. PAST SURGICAL HISTORY: She had an ectopic and appendectomy. FAMILY HISTORY: Her grandfather had emphysema. SOCIAL HISTORY: She lives with her son and grandchildren. She is able to ambulate, but most of the time uses a wheelchair to get around. She quit smoking 5 years ago. She does not use alcohol. Her emergency contact should she unable to make decisions is her son, Prabhu. Prabhu's number is [phone]. REVIEW OF SYSTEMS: Positive for diarrhea, which is chronic for her. Positive for fevers, chills, shortness of breath, a cough productive of a small amount of sputum and dyspnea on exertion. PHYSICAL EXAMINATION GENERAL: Alert, obese female, who is in no distress. She is breathing comfortably and able to speak in full sentences. She has a wet cough occasionally. VITAL SIGNS: Temperature 102, heart rate 132, respiratory rate 22, pulse ox 91 % on 2 L, blood pressure 143/124. HEENT: Pupils are equal, round, and reactive to light. Oral mucosa is dry. She has no pharyngeal exudates. No palatal petechiae. NECK: No JVP. No adenopathy. LUNGS: She has decreased breath sounds, rhonchi in the left base and a few scattered wheezes. CHEST: Tachycardic. I cannot appreciate any murmurs. ABDOMEN: Obese, soft, nontender, nondistended. EXTREMITIES: Have no edema, rashes, or ulcers. NEURO: Her strength is 5/5 throughout. She is oriented x3. DIAGNOSTIC STUDIES/LAB DATA: White blood cells 13.8, hemoglobin 14.2, platelets 315. INR 0.91. Sodium 131, potassium 4.0, bicarb 102, BUN 12, creatinine 1.1, glucose 206, lactate 2.1. Chest x-ray has left lower lobe pneumonia. ASSESSMENT AND PLAN: This is a 62-year-old female with history of chronic obstructive pulmonary disease and obstructive sleep apnea, who presents with 1 month of worsening shortness of breath and 1 day of chills and vomiting. 1. Severe sepsis. The source is very clearly pulmonary. She has received 3 L of normal saline in the ED and ceftriaxone and azithromycin. She is currently hemodynamically stable and will need ongoing fluid resuscitation and a repeat lactate today. 2. Community-acquired pneumonia. Check sputum culture. Blood cultures are pending. I am also checking urine Legionella and Strep antigens. A flu swab was negative in the ED. 3. Chest pressure. An EKG has not been performed in the emergency department. I am ordering one. An initial troponin is 0.02. I will trend these and place her on tele. 4. Chronic obstructive pulmonary disease exacerbation. I am placing her on standing nebs and steroids. 5. Obstructive sleep apnea. She has not been wearing her CPAP at home, but I will order it for her here. 6. Diabetes. I am holding her Trulicity. I am placing her on correction insulin. 7. Fibromyalgia. Continue amitriptyline and sertraline. 8. Acute kidney injury, likely related to sepsis. Continue volume resuscitation. 9. Code status: She is full code. I have discussed possible need for intubation and she would be agreeable to this should her respiratory status worsen. [id number]/[facility] #: [id number] SOFÍA
[2018-05-08] MEDS: Insulin LISPRO* 1 UNITS UNIT SUBCUT SCH ×2 (17:15→20:53)
[2018-05-08] MEDS: Ferrous Sulfate TAB* 325 MG PO SCH (20:42)
[2018-05-08] MEDS: Ascorbic Acid TAB* 500 MG PO SCH (20:42)
[2018-05-08] MEDS: Amitriptyline TAB* 50 MG PO SCH (20:42)
[2018-05-08] MEDS: Al Hydrox/Mg Hydrox/Simet LIQ* 30 ML UDC PO PRN (20:46)
[2018-05-09] MEDS: Heparin VIAL(*) 5000 UNITS/ML VIAL (FIVE THOUSAND) SUBCUT SCH ×3 (05:13→20:55)
[2018-05-09] MEDS: methylPREDNISolone SOD 40 MG* 1 ML VIAL IV SCH ×3 (05:13→20:09)
[2018-05-09 06:16] LABS: Hematocrit 38 % (35-47); Mean Corpuscular HGB Conc 32 g/dl (31-36); Mean Corpuscular Hemoglobin 27 pg (27-31); Mean Corpuscular Volume 87 fL (80-97); Mean Platelet Volume 7.2 fL (7.4-10.4); Platelet Count 279 10^3/ul (150-450); Red Blood Count 4.36 10^6/ul (4.00-5.40); Red Cell Distribution Width 17 % (10.5-15); White Blood Count 25.7 10^3/ul (3.5-10.8)
[2018-05-09 06:39] LABS: EGFR Non-African American 61.5 (>60)
[2018-05-09 06:52] LABS: ABS Basophils 0 10^3/ul (0-0.2); ABS Eosinophils 0 10^3/ul (0-0.6); ABS Lymphocytes 1.2 10^3/ul (1.0-4.8); ABS Monocytes 0.5 10^3/ul (0-0.8); ABS Nucleated RBC 0 10^3/ul
[2018-05-09 06:53] LABS: Monocytes % 5 %
[2018-05-09 06:54] LABS: ABS Neutrophils 22.4 10^3/ul (1.5-7.7)
[2018-05-09] MEDS: NS 0.9% 1000 ML* 1,000 ML IV SCH (07:29)
[2018-05-09] MEDS: Sertraline* 50 MG TAB PO SCH (08:31)
[2018-05-09] MEDS: Lisinopril TAB* 10 MG PO SCH (08:31)
[2018-05-09] MEDS: Ascorbic Acid TAB* 500 MG PO SCH ×2 (08:32→20:11)
[2018-05-09] MEDS: Ferrous Sulfate TAB* 325 MG PO SCH ×2 (08:32→20:11)
[2018-05-09] MEDS: Gabapentin CAP(*) 300 MG PO SCH ×3 (08:32→20:10)
[2018-05-09] MEDS: Insulin LISPRO* 1 UNITS UNIT SUBCUT SCH ×4 (08:32→20:18)
[2018-05-09] MEDS: cefTRIAXone(*) 1 GM in NS 0.9% 50 ML* 50 ML IVPB SCH (09:10)
[2018-05-09] MEDS: Azithromycin IV(*) 250 MG in NS 0.9% 250 ML* 250 ML IVPB SCH (10:00)
--- NOTE | 2018-05-09 10:14 | PN ---
Subjective Date of Service: 05/09/18 Interval History: Ms. Fuller feels MUCh better today. SHe is sitting up in bed. She got "really winded" when she walked to the bathroom but was able to get there and back. Hasn't walked to the hallway yet. Still coughing, little sputum. No more chest pain. RN reported a 10 second run of SVT before I went in to see her; she says she was having a "coughing spell." Objective Active Medications: Acetaminophen (Tylenol Tab*) 650 mg PO Q4H PRN PRN Reason: FEVER/PAIN Last Admin: 05/08/18 20:53 Dose: 650 mg Al Hydrox/Mg Hydrox/Simethicone (Maalox Plus*) 30 ml PO Q6H PRN PRN Reason: INDIGESTION Last Admin: 05/08/18 20:46 Dose: 30 ml Albuterol/Ipratropium (Duoneb (Albuterol 2.5 Mg/Ipratropium 0.5 Mg)) 1 neb INH RT.[id number] AWAKE PRN PRN Reason: sob/wheexing Amitriptyline HCl (Elavil Tab*) 50 mg PO BEDTIME [facility] Last Admin: 05/08/18 20:42 Dose: 50 mg Ascorbic Acid (Vitamin C Tab*) 500 mg PO BID [facility] Last Admin: 05/09/18 08:32 Dose: 500 mg Dextrose (D50w Syringe 50 Ml*) 12.5 gm IV PUSH .FOR FS < 60 - SS PRN PRN Reason: FS < 60 Ferrous Sulfate (Ferrous Sulfate Tab*) 325 mg PO BID [facility] Last Admin: 05/09/18 08:32 Dose: 325 mg Gabapentin (Neurontin Cap(*)) 300 mg PO TID [facility] Last Admin: 05/09/18 08:32 Dose: 300 mg Heparin Sodium (Porcine) (Heparin Vial(*)) 5,000 units SUBCUT Q8HR [facility] Last Admin: 05/09/18 05:13 Dose: 5,000 units Sodium Chloride (Ns 0.9% 1000 Ml*) 1,000 mls @ 125 mls/hr IV PER RATE [facility] Last Admin: 05/09/18 07:29 Dose: 125 mls/hr Ceftriaxone Sodium 1 gm/ (Sodium Chloride) 50 mls @ 200 mls/hr IVPB Q24H [facility] Last Admin: 05/09/18 09:10 Dose: 200 mls/hr Azithromycin 250 mg/ Sodium (Chloride) 250 mls @ 250 mls/hr IVPB Q24H [facility] Last Admin: 05/09/18 10:00 Dose: 250 mls/hr Insulin Human Lispro (Humalog*) 0 units SUBCUT ACHS [facility]; Protocol Last Admin: 05/09/18 08:32 Dose: 3 units Lisinopril (Prinivil Tab*) 20 mg PO DAILY [facility] Last Admin: 05/09/18 08:31 Dose: 20 mg Methylprednisolone Sodium Succinate (Solu-Medrol 40 Mg) 40 mg IV Q8H [facility] Last Admin: 05/09/18 05:13 Dose: 40 mg Oxycodone/Acetaminophen (Percocet 5/325 Tab*) 1 tab PO Q6H PRN PRN Reason: PAIN Sertraline HCl (Zoloft*) 150 mg PO QAM [facility] Last Admin: 05/09/18 08:31 Dose: 150 mg Vital Signs - 8 hr 05/09/18 05/09/18 05/09/18 04:00 07:15 07:37 Temperature 97.9 F 97.5 F Pulse Rate 79 86 Respiratory 20 20 20 Rate Blood Pressure 141/57 129/52 (mmHg) O2 Sat by Pulse 97 99 Oximetry 05/09/18 08:32 Temperature Pulse Rate Respiratory 18 Rate Blood Pressure (mmHg) O2 Sat by Pulse Oximetry Oxygen Devices in Use Now: Nasal Cannula Appearance: alert, comfortable, gets dyspneic when speaking Eyes: No Scleral Icterus Ears/Nose/Mouth/Throat: NL Teeth, Lips, Gums Neck: NL Appearance and Movements; NL JVP Respiratory: - - rhonchi in the left base, otherwise clear and no wheezing Cardiovascular: NL Sounds; No Murmurs; No JVD, RRR Abdominal: NL Sounds; No Tenderness; No Distention Lymphatic: No Cervical Adenopathy Extremities: - - trace edema Skin: No Rash or Ulcers Neurological: Alert and Oriented x 3 Result Diagrams: 05/09/18 05:43 05/09/18 05:43 Additional Lab and Data: Lab Results 05/08/18 05/08/18 05/08/18 Range/Units 10:38 10:38 10:38 WBC 13.8 H (3.5-10.8) 10^3/ul RBC 5.09 (4.00-5.40) 10^6/ul Hgb 14.2 (12.0-16.0) g/dl Hct 43 (35-47) % MCV 85 (80-97) fL MCH 28 (27-31) pg MCHC 33 (31-36) g/dl RDW 17 H (10.5-15) % Plt Count 315 (150-450) 10^3/ul MPV 6.8 L (7.4-10.4) fL Neut % (Auto) 93.6 % Lymph % (Auto) 3.1 % Pratt % (Auto) 2.8 % Eos % (Auto) 0.3 % Baso % (Auto) 0.2 % Absolute Neuts (auto) 12.9 H (1.5-7.7) 10^3/ul Absolute Lymphs (auto) 0.4 L (1.0-4.8) 10^3/ul Absolute Monos (auto) 0.4 (0-0.8) 10^3/ul Absolute Eos (auto) 0 (0-0.6) 10^3/ul Absolute Basos (auto) 0 (0-0.2) 10^3/ul Absolute Nucleated RBC 0 10^3/ul Nucleated RBC % 0.1 INR (Anticoag Therapy) 0.91 (0.77-1.02) APTT 30.8 (26.0-36.3) seconds Sodium Pending Potassium Pending Chloride Pending Carbon Dioxide Pending Anion Gap Pending BUN Pending Creatinine Pending Est GFR ( Amer) Pending Est GFR (Non-Af Amer) Pending BUN/Creatinine Ratio Pending Glucose Pending Calcium Pending Total Bilirubin Pending AST Pending ALT Pending Alkaline Phosphatase Pending Troponin I 0.02 (<0.04) ng/mL C-Reactive Protein Pending Total Protein Pending Albumin Pending Globulin Pending Albumin/Globulin Ratio Pending Influenza A (Rapid) (Negative) Influenza B (Rapid) (Negative) 05/08/18 Range/Units 10:50 WBC (3.5-10.8) 10^3/ul RBC (4.00-5.40) 10^6/ul Hgb (12.0-16.0) g/dl Hct (35-47) % MCV (80-97) fL MCH (27-31) pg MCHC (31-36) g/dl RDW (10.5-15) % Plt Count (150-450) 10^3/ul MPV (7.4-10.4) fL Neut % (Auto) % Lymph % (Auto) % Pratt % (Auto) % Eos % (Auto) % Baso % (Auto) % Absolute Neuts (auto) (1.5-7.7) 10^3/ul Absolute Lymphs (auto) (1.0-4.8) 10^3/ul Absolute Monos (auto) (0-0.8) 10^3/ul Absolute Eos (auto) (0-0.6) 10^3/ul Absolute Basos (auto) (0-0.2) 10^3/ul Absolute Nucleated RBC 10^3/ul Nucleated RBC % INR (Anticoag Therapy) (0.77-1.02) APTT (26.0-36.3) seconds Sodium Potassium Chloride Carbon Dioxide Anion Gap BUN Creatinine Est GFR ( Amer) Est GFR (Non-Af Amer) BUN/Creatinine Ratio Glucose Calcium Total Bilirubin AST ALT Alkaline Phosphatase Troponin I (<0.04) ng/mL C-Reactive Protein Total Protein Albumin Globulin Albumin/Globulin Ratio Influenza A (Rapid) Negative (Negative) Influenza B (Rapid) Negative (Negative) Microbiology and Other Data: Microbiology 05/08/18 10:39 Aerobic Blood Culture - Preliminary Blood Venous Blood MRSA/MSSA (PCR) - Final Mrsa Negative S.aureus Negative 05/08/18 11:58 Legionella Urinary Antigen - Final Urine Negative Legionella Antigen Streptococcus pneumoniae Ag Screen - Final Negative S. pneumo Antigen 05/08/18 10:39 Influenza Types A,B Antigen - Final Nasal Specimen received for Influenza A/B Molecular testing Assess/Plan/Problems-Billing Assessment: This is a 62 year old lady with history of COPD who presented to the ED on with shortness of breath and was found to have a LLL infiltrate - Patient Problems (1) Community acquired bacterial pneumonia Current Visit: Yes Status: Acute Code(s): J15.9 - UNSPECIFIED BACTERIAL PNEUMONIA SNOMED Code(s): 400473718 Comment: she has been unable to give a sputum sample continue ceftriaxone/azithro for now urine antigens are negative improving (2) COPD (chronic obstructive pulmonary disease) Current Visit: No Status: Acute Code(s): J44.9 - CHRONIC OBSTRUCTIVE PULMONARY DISEASE, UNSPECIFIED SNOMED Code(s): 20047644 Comment: continue solumedrol today and prn nebs (3) Acute respiratory failure with hypoxia Current Visit: Yes Status: Acute Code(s): J96.01 - ACUTE RESPIRATORY FAILURE WITH HYPOXIA SNOMED Code(s): 52230971 Comment: will need an ambulatory pulse ox tomorrow to see if she needs home O2 but will allow rest to recover today (4) Elevated troponin Current Visit: No Status: Acute Code(s): R74.8 - ABNORMAL LEVELS OF OTHER SERUM ENZYMES SNOMED Code(s): 170043282 Comment: Likely demand ischemia related to severe sepsis. She was having chest pain, but would not pursue an ischemic work up while infected; may need an outpatient stress (5) Hypertension Current Visit: No Status: Acute Code(s): I10 - ESSENTIAL (PRIMARY) HYPERTENSION SNOMED Code(s): 90562567 Comment: normotensive on lisnopril (6) Type II diabetes mellitus Current Visit: No Status: Acute Comment: poorly controlled on steroids; continue sliding scale for now (7) Sepsis Current Visit: No Status: Resolved Comment: Present on admission now resolved; source is pneumonia DC IVF (8) SVT (supraventricular tachycardia) Current Visit: Yes Status: Acute Code(s): I47.1 - SUPRAVENTRICULAR TACHYCARDIA SNOMED Code(s): 9046448 Comment: short run (10 sec) during coughing spell; keep on tele provoked, will monitor
[2018-05-09] MEDS: Amitriptyline TAB* 50 MG PO SCH (20:11)
[2018-05-09] MEDS: Al Hydrox/Mg Hydrox/Simet LIQ* 30 ML UDC PO PRN (20:59)
[2018-05-10] MEDS: Heparin VIAL(*) 5000 UNITS/ML VIAL (FIVE THOUSAND) SUBCUT SCH (05:47)
[2018-05-10] MEDS: methylPREDNISolone SOD 40 MG* 1 ML VIAL IV SCH (05:47)
[2018-05-10] MEDS: cefTRIAXone(*) 1 GM in NS 0.9% 50 ML* 50 ML IVPB SCH (08:12)
[2018-05-10] MEDS: Lisinopril TAB* 10 MG PO SCH (08:12)
[2018-05-10] MEDS: Ascorbic Acid TAB* 500 MG PO SCH (08:12)
[2018-05-10] MEDS: Gabapentin CAP(*) 300 MG PO SCH (08:12)
[2018-05-10] MEDS: Sertraline* 50 MG TAB PO SCH (08:12)
[2018-05-10] MEDS: Ferrous Sulfate TAB* 325 MG PO SCH (08:12)
[2018-05-10] MEDS: Insulin LISPRO* 1 UNITS UNIT SUBCUT SCH (08:16)
[2018-05-10 08:33] VITALS: BP 182/96
[2018-05-10] MEDS ORDERED: Pneumococcal *Vac Polyvalent 0.5 ML VIAL IM ONE (09:00)
[2018-05-10] MEDS: Azithromycin IV(*) 250 MG in NS 0.9% 250 ML* 250 ML IVPB SCH (09:19)
--- NOTE | 2018-05-10 16:40 | DS ---
CC: Dr. Acosta * DISCHARGE SUMMARY: DATE OF ADMISSION: 05/08/18 DATE OF DISCHARGE: 05/10/18 PRINCIPAL DISCHARGE DIAGNOSES: 1. Severe sepsis. 2. Community-acquired pneumonia. 3. Acute hypoxic respiratory failure. 4. Chronic obstructive pulmonary disease exacerbation. 5. Chest pain. SECONDARY DISCHARGE DIAGNOSES: 1. Diabetes type 2. 2. Fibromyalgia. 3. Depression. 4. Obstructive sleep apnea, not using her CPAP. 5. Irritable bowel syndrome. PHYSICAL EXAM: At the time of discharge, temperature 97.6, heart rate 79, respiratory rate 20, pulse ox 97% on room air at rest, while ambulating her pulse ox was 92% to 94%. General: Alert, well-appearing female, in no distress , sitting at the edge of her bed reading the paper. She is able to speak in full sentences with no dyspnea and has no excessive respiratory muscle use. HEENT: Pupils equal, round, and reactive to light. Oral mucosa is moist. No pharyngeal exudates or erythema. Neck: No JVP or adenopathy. Chest: Regular rate and rhythm. No murmurs. Her lungs have a left basilar crackle and scattered expiratory wheezes, but she is moving good air. Abdomen: Soft, nontender, nondistended. No guarding or rebound. Extremities: No edema. Neuro: Strength 5/5. She is oriented x3 and has good insight. HOSPITAL COURSE BY PROBLEM: 1. Severe sepsis. In the emergency department, she had lactic acidosis, was febrile, tachycardic, and tachypneic. She was treated with a sepsis protocol with IV fluids and ceftriaxone and azithromycin. Her lactate returned to normal and she improved quickly. 2. Community-acquired pneumonia. At the time of discharge, her sputum culture is pending. Her Legionella and Strep pneumo antigens were negative. Her blood culture returned positive for 1 bottle of Staph hominis. She is being discharged on doxycycline and Augmentin for 3 more days for a total 5-day course. 3. Chronic obstructive pulmonary disease exacerbation. She was treated with nebs and Solu-Medrol and at the time of discharge, she is being discharged on 5 days of p.o. prednisone at 50 mg daily. I also arranged for a nebulizer for her at home and sent nebulized solution to her pharmacy. 4. Chest pain. Ms. Fuller was admitted with left-sided chest pain that worsened with exertion. Her troponin peaked at 0.09. I chose not to stress her in the setting of sepsis and pneumonia; however, I do think an outpatient stress test is warranted, so I have ordered this to be done as an outpatient and have the results sent to Dr. Acosta. 5. Obstructive sleep apnea. While she has not been wearing her CPAP at home, she did wear it here and tolerated it quite well. I encouraged her to use it at home. 6. Diabetes. She is to resume her Trulicity at home. 7. Fibromyalgia. She was continued on amitriptyline and sertraline. 8. Acute kidney injury. This resolved after volume resuscitation. 9. Disposition. Ms. Fuller is being discharged to home on 05/10/18. She is to rest for 5 days and not do any strenuous activity or work such as taking care of her grandchildren like she does regularly. She understands that she is to rest for the next 5 days and she is to follow up with Dr. Acosta within the week. 10. Activity as tolerated. 11. Diet. Carb control. [id number]/[facility] #: [id number] [facility] HOSPITALMagali
== END 2018-05-10 12:43 | disposition home or self-care (01) | DRG 871 ==
LOC: ED 10:05 → MEDTELE 12:01
PROVIDERS: ADMIT Internal Medicine; ATTEND Internal Medicine
DX: A41.01 Sepsis due to Methicillin susceptible Staphylococcus aureus (principal); J18.9 Pneumonia, unspecified organism; J96.01 Acute respiratory failure with hypoxia; J44.1 Chronic obstructive pulmonary disease with (acute) exacerbation; N17.9 Acute kidney failure, unspecified; Z68.42 Body mass index [BMI] 45.0-49.9, adult; I47.1 Supraventricular tachycardia; R65.20 Severe sepsis without septic shock; R07.9 Chest pain, unspecified; E11.9 Type 2 diabetes mellitus without complications; M79.7 Fibromyalgia; K58.0 Irritable bowel syndrome with diarrhea; F32.9 Major depressive disorder, single episode, unspecified; G47.33 Obstructive sleep apnea (adult) (pediatric); E66.9 Obesity, unspecified; Z82.5 Family history of asthma and other chronic lower respiratory diseases; Z87.891 Personal history of nicotine dependence
CPT/HCPCS: 36415; 71045; 80053; 81003; 83605; 83880; 84484; 85025; 85610; 85730; 86140; 87040; 87070; 87077; 87150; 87186; 87205; 87899; 90686; 90732; 93005; 94660; 99285; A9270-GY; J0456; J0696; J1644; J2920

== ENCOUNTER 2018-05-15 12:11 | Emergency (ER) | payer MEDICARE, MEDICAID ==
[2018-05-15 12:35] VITALS: BP 166/81
--- NOTE | 2018-05-15 13:09 | UC ---
General HPI - HPI Summary HPI Summary: 62 yo female c/o last couple days of sore throat. Hurts to swallow. Feels like glass in her mouth. Recently d/c'd from the hospital (05/10/18) s/p sepsis , pneumonia, copd. Completed abx x 1 day. Also completed a course of prodnisone. No c/o fever. Minimal cough. No current sob / palpitations. No GI c/o. No rash. - History of Current Complaint Chief Complaint: UCGeneralIllness Stated Complaint: SORE THROAT, TENDERNESS- TONGUE Time Seen by Provider: 05/15/18 12:24 Hx Obtained From: Patient, Family/Stores Despatch Hand Pain Intensity: 0 - Allergy/Home Medications Allergies/Adverse Reactions: Allergies Allergy/AdvReac Type Severity Reaction Status Date / Time aspartame Allergy Anaphylatic Verified 05/15/18 12:23 Shock latex Allergy Itching Verified 05/15/18 12:23 salicylates Allergy Anaphylatic Verified 05/15/18 12:23 Shock PMH/Surg Hx/FS Hx/Imm Hx Previously Healthy: Yes - Surgical History Surgical History: Yes Surgery Procedure, Year, and Place: APPENDECTOMY, TUBAL LIGATION, TUBAL (ECTOPIC), - Family History Known Family History: Positive: Cardiac Disease, Hypertension, Diabetes - Social History Alcohol Use: None Substance Use Type: None Smoking Status (MU): Former Smoker Type: Cigarettes Length of Time of Smoking/Using Tobacco: quit Jun 20, 2011, smoked ~30 years on and off Have You Smoked in the Last Year: No - Immunization History Most Recent Influenza Vaccination: 05/10/18 Most Recent Pneumonia Vaccination: 05/10/18 Review of Systems All Other Systems Reviewed And Are Negative: Yes Constitutional: Positive: Fatigue Skin: Positive: Other - see hpi ENT: Positive: Sore Throat, Other - see hpi Respiratory: Positive: Cough - see hpi Cardiovascular: Positive: Other - see hpi (recent d/c from hosp, feels ok now except for oral c/o) Gastrointestinal: Positive: Other - see hpi Genitourinary: Positive: Negative Motor: Positive: Negative - no new c/o Neurovascular: Positive: Negative Musculoskeletal: Positive: Negative Neurological: Positive: Negative Psychological: Positive: Negative Is Patient Immunocompromised?: No Physical Exam Triage Information Reviewed: Yes Appearance: Well-Nourished - sitting up, conversing in full sentances. NAD. Vital Signs: Initial Vital Signs Temp 96.7 F 05/15/18 12:29 Pulse 91 05/15/18 12:29 Resp 16 05/15/18 12:29 BP 166/81 05/15/18 12:29 Pulse Ox 96 05/15/18 12:29 Vital Signs Reviewed: Yes Eye Exam: Normal - grossly nad. ENT: Positive: Other - tongue + white plaques, including roof of mouth. Neck exam: Normal Neck: Positive: Supple, Nontender Respiratory Exam: Other - mild rhonchorus cough, but bs equal. Clears with cough. No distress. Cardiovascular Exam: Other - HR regular, non-diaphoretic. Abdominal Exam: Normal Abdomen Description: Positive: Nontender Musculoskeletal Exam: Other - BLE edema, but not unusual per pt gait steady, slow Neurological Exam: Normal - grossly nonfocal Psychological Exam: Normal - conversing easily and appropriately. Skin Exam: Normal - no visible or reported rash Course/Dx - Course Course Of Treatment: reviewed coa / tx plan. reviewed medications / allergies. reviewed H/p, d/c summary, recent ancillaries in [facility] IO. encouraged close f /u pcp and specialists. questions as posed answered to the best of my ability - Diagnoses Provider Diagnosis: Oral candidiasis Discharge - Sign-Out/Discharge Documenting (check all that apply): Patient Departure All imaging exams completed and their final reports reviewed: No Studies - Discharge Plan Condition: Stable Disposition: HOME Prescriptions: Fluconazole 100 MG TAB* [Diflucan 100 MG TAB*] 200 mg PO DAILY #20 tab Nystatin SUSPENSION ORAL SYR* 100,000 units PO QID #1 bottle Patient Education Materials: Oral Candidiasis (ED) Referrals: Adelso Acosta MD [Primary Care Provider] - Additional Instructions: Do NOT take oxycodone while you are taking Diflucan. Follow up with your primary care physican next week as scheduled. You may need blood work to check your liver function upon completion of the diflucan. Seek medical attention for worse or new problems. - Billing Disposition and Condition Condition: STABLE Disposition: Home
== END 2018-05-15 13:15 | disposition home or self-care (01) ==
LOC: UCEAST 12:11
DX: B37.0 Candidal stomatitis (principal); Z88.8 Allergy status to other drugs, medicaments and biological substances; Z91.040 Latex allergy status; Z87.891 Personal history of nicotine dependence
CPT/HCPCS: 99212; G0463

== ENCOUNTER 2018-08-13 11:05 | Emergency (ER) | payer MEDICARE, MEDICAID ==
--- OUTSIDE RECORDS SUMMARY | 2018-08-13 11:13 | XMS REPORT | Continuity of Care Document ---
:1955 External Reference #:[id number] Author Name Enzo Wakefield, OD Address [address] [place] [address] Care Team Providers Name Role Phone Adelso Acosta MD Care Team Information Film Rental Clerk Unavailable Dave QUINN,Adelso Primary Care Physician Unavailable Payers Date Identification Numbers Payment Provider Subscriber Policy Number: [id number] Medicare [facility] Millie Fuller PayID: [id number] [address] [place] [address] Policy Number: [id number] Medicaid [place] Millie Fuller PayID: [id number] [address] [place] [address] Advance Directives Description No Information Available Problems Date Description Provider Status Onset: 07/10/2016 Type 2 diabetes mellitus Active Family History Date Family Member(s) Observation Comments Father High BP Father due to Heart Disease () Father Heart Disease Mother Noncontributory Mother Diabetes Mother High BP Mother Heart Failure Social History Type Date Description Comments Sex Unknown ETOH Use Never used alcohol Tobacco Use Start: Unknown End: Unknown Patient is a former smoker Smoking Status Reviewed: 08/07/18 Patient is a former smoker Allergies, Adverse Reactions, Alerts Date Description Reaction Status Severity Comments 07/10/2016 Aspirin Active 07/10/2016 Latex Active 07/10/2016 Salicylates Active Medications Medication Date Status Form Strength Qnty SIG Indications Ordering Provider Trulicity 07/10 Active Solution 1.5mg/0.5 Pen-Injec ML zhane Wakefield OD Refresh Tears 01/07 Active Solution 0.5% 15ml one drop tid H25.13 OU EMILIE Wakefield Percocet Active Tablets Unknown /0000 Advair Diskus Active Aerosol 100-50mcg Unknown /0000 /Dose Amitriptyline HCL 00 Active Tablets 50mg Unknown /0000 Combivent Active Aerosol 20-100mcg inhale 1 Unknown Respimat /0000 /Act puff by mouth 4 times per day for chronic obstructive lung disease Cyclobenzaprine Active Tablets 7.5mg Unknown HCL /0000 Gabapentin Active Capsules 300mg Unknown /0000 Ibuprofen Active Tablets 800mg Unknown /0000 Lisinopril Active Tablets 5mg Unknown / Nexium Active Packet 10mg Unknown / Pravastatin Active Tablets 20mg Unknown Sodium /0000 Proair HFA Active Aerosol 108(90Bas Unknown /0000 e) mcg/Act Ranitidine HCL Active Capsules 150mg Unknown / Zoloft Active Tablets 25mg Unknown / Furosemide Active Tablets 40mg Unknown / Trulicity Hx Solution 1.5mg/0.5 inject sc Unknown / Pen-Injec ML weekly on - t 07/10 Immunizations Description No Information Available Vital Signs Date Vital Result Comment 08/07/2018 2:46pm Intraocular Pressure Right Eye 19 mmHg Intraocular Pressure Left Eye 19 mmHg 07/10/2017 2:26pm Intraocular Pressure Right Eye 20 mmHg Intraocular Pressure Left Eye 20 mmHg 07/10/2016 11:09am Intraocular Pressure Right Eye 18 mmHg Intraocular Pressure Left Eye 18 mmHg Results Description No Information Available Procedures Date Code Description Status 08/07/2018 76306 Ophthalmoscopy Subsequent Completed 08/07/2018 96945 Refraction Completed 08/07/2018 02105 Eye Exam Est Comprehensive Completed 07/10/2017 13285 Fundus Photography W/Interpretation & Report Completed 07/10/2017 64255 Ophthalmoscopy Subsequent Completed 07/10/2017 97353 Refraction Completed 07/10/2017 57481 Eye Exam Est Intermediate Completed 01/07/2017 78357 Ophthalmoscopy Subsequent Completed 01/07/2017 17233 Oct Retina Completed 01/07/2017 79948 Eye Exam Est Intermediate Completed 07/10/2016 27230 Fundus Photography W/Interpretation & Report Completed 07/10/2016 31857 Ophthalmoscopy Initial Completed 07/10/2016 73800 Refraction Completed 07/10/2016 24090 Eye Exam New Comprehensive Completed Encounters Description No Information Available Plan of Treatment 08/07/2018 - Enzo Wakefield, ODH52.4 [id number] Age-related nuclear cataract, gmmddovgqL22.033 Hypertensive retinopathy, [id number] Type 2 diabetes mellitus without complicationsFollow up:yearly full, sooner PRN
--- NOTE | 2018-08-13 12:38 | UC ---
Complaint Female HPI - HPI Summary HPI Summary: Pt reports feeling the need to still urinate after urinating. Feels that her urge incontinence may be worsening. Of note pt recently finished Amox for another condition. does report using 'pee pads' to help w/ her urge incontinence. Of note pcp has incr. her 'water pill'. denies sexual activity. - History Of Current Complaint Chief Complaint: UCGU Stated Complaint: URINARY ISSUE Time Seen by Provider: 08/13/18 11:35 Hx Obtained From: Patient Severity Currently: None Pain Intensity: 0 Pain Scale Used: 0-10 Numeric Aggravating Factor(s): Urination Alleviating Factor(s): Nothing Associated Signs And Symptoms: Negative: Fever - Allergies/Home Medications Allergies/Adverse Reactions: Allergies Allergy/AdvReac Type Severity Reaction Status Date / Time aspartame Allergy Anaphylatic Verified 08/13/18 11:48 Shock latex Allergy Itching Verified 08/13/18 11:48 salicylates Allergy Anaphylatic Verified 08/13/18 11:48 Shock PMH/Surg Hx/FS Hx/Imm Hx - Additional Past Medical History Additional PMH: REPORTS URGE INCONTINENCE Previously Healthy: Yes Respiratory History: Asthma GI/ History: Gastroesophageal Reflux - Surgical History Surgical History: Yes Surgery Procedure, Year, and Place: APPENDECTOMY, TUBAL LIGATION, TUBAL (ECTOPIC), - Family History Known Family History: Positive: Cardiac Disease, Hypertension, Diabetes - Social History Alcohol Use: None Substance Use Type: None Smoking Status (MU): Former Smoker Type: Cigarettes Length of Time of Smoking/Using Tobacco: quit Jun 20, 2011, smoked ~30 years on and off Have You Smoked in the Last Year: No - Immunization History Most Recent Influenza Vaccination: 05/10/18 Most Recent Pneumonia Vaccination: 05/10/18 Review of Systems All Other Systems Reviewed And Are Negative: Yes Constitutional: Positive: Negative Gastrointestinal: Negative: Abdominal Pain Genitourinary: Positive: Frequency, Urgency. Negative: Dysuria, Hematuria, Vaginal/Penile Itching, Vaginal/Penile Discharge Musculoskeletal: Negative: Arthralgia - BACK PAIN Physical Exam Triage Information Reviewed: Yes Appearance: Well-Appearing Vital Signs: Initial Vital Signs Temp 98.8 F 08/13/18 11:46 Pulse 86 08/13/18 11:46 Resp 18 08/13/18 11:46 BP 155/134 08/13/18 11:46 Pulse Ox 98 03/07/19 11:46 Vital Signs Reviewed: Yes Respiratory Exam: Normal Cardiovascular Exam: Normal Abdomen Description: Positive: Soft. Negative: CVA Tenderness (R), CVA Tenderness (L) Pelvic Exam: Positive: Other - DECLINED Complaint Female Dx - Course Course Of Treatment: feelings of woresning urge incontinence in a pt. w/ hx of this dx. UA + for trace leuks which is not indicative of UTI per se. Given hx of Amox tx by outside provider could be related to a poss fungal source although pt declined exam; fluconazole sent. Have asked her to f/u w/ pcp to ensure appropriate f/u for her urge incontinence and today's symptoms. She does wear urinary pads. her diuretic med was recently increased so have asked her to incr. water intake. hER bp WAS RECHECKED AND 173/79 WAS FINAL READY. Advised to f/u w/ pcp about this. - Differential Dx/Diagnosis Differential Diagnosis/HQI/PQRI: Urinary Tract Infection Provider Diagnosis: Elevated blood pressure reading, Urge incontinence of urine Discharge - Sign-Out/Discharge Documenting (check all that apply): Patient Departure All imaging exams completed and their final reports reviewed: No Studies - Discharge Plan Condition: Good Disposition: HOME Prescriptions: Fluconazole 150 MG TAB* [Diflucan 150 MG TAB*] 150 mg PO ONCE #1 tablet Patient Education Materials: Urinary Urgency and Frequency (DC) Referrals: Adelso Acosta MD [Primary Care Provider] - Additional Instructions: Please follow up with pcp if worsening or not improving. we - Billing Disposition and Condition Condition: GOOD Disposition: Home
[2018-08-13 13:02] VITALS: BP 173/79
--- NOTE | 2018-08-16 07:36 | UC ---
- Progress Note Progress Note: Reviewed urine cx from 08/13/18. + Klebsiella pneumoniae, sens/ res noted ( [facility]). RN to call pt. She should f/u with PCP if has not already done so Meanwhile, Rx - Cefdinir e-scribed to pharmacy of record. Course/Dx - Diagnoses Provider Diagnoses: Elevated blood pressure reading, Urge incontinence of urine Discharge - Sign-Out/Discharge Documenting (check all that apply): Post-Discharge Follow Up All imaging exams completed and their final reports reviewed: No Studies - Discharge Plan Condition: Good Disposition: HOME Prescriptions: Cefdinir [Cefdinir 300 MG CAP] 300 mg PO BID 7 Days #14 capsule Fluconazole 150 MG TAB* [Diflucan 150 MG TAB*] 150 mg PO ONCE #1 tablet Patient Education Materials: Urinary Urgency and Frequency (DC) Referrals: Adelso Acosta MD [Primary Care Provider] - Additional Instructions: Please follow up with pcp if worsening or not improving. we - Billing Disposition and Condition Condition: GOOD Disposition: Home
== END 2018-08-13 13:05 | disposition home or self-care (01) ==
LOC: UCEAST 11:05
DX: R39.15 Urgency of urination (principal); R03.0 Elevated blood-pressure reading, without diagnosis of hypertension; R39.81 Functional urinary incontinence; J45.909 Unspecified asthma, uncomplicated; Z87.891 Personal history of nicotine dependence; Z91.040 Latex allergy status; Z88.8 Allergy status to other drugs, medicaments and biological substances; Z91.09 Other allergy status, other than to drugs and biological substances
CPT/HCPCS: 81003; 87077; 87086; 87186; 99212; G0463